=== PATIENT | male | born 1955 | race Hispanic/Latino ===

== ENCOUNTER 2018-11-05 08:18 | Outpatient (CLI) | payer OTHER ==
[2018-11-05 09:15] LABS: Estimated GFR-MDRD - POC Greater than 90
--- NOTE | 2018-11-05 10:49 | CT ---
FCT angiogram of chest with contrast: 10/28/2018 HISTORY: 63-year-old male with "non-rheumatic aortic valve stenosis" cardiac murmur. Recent onset of chest janice n and dyspnea on exertion. TECHNIQUE: IV injection of 90 mL of Isovue-370. Arterial phase scan through the chest. Coronal and sagittal 3-D reconstructions. FINDINGS: There is heavy, severe calcification of the aortic valve. Diameter of thoracic aorta: Aortic root: 3.2 cm Descending aorta: 3.6 cm Aortic arch: 2.4 cm Descending thoracic aorta: 2.5 cm No aortic dissection. No mediastinal lymphadenopathy or hematoma. No pericardial effusion, pleural ef fusion, or pneumothorax. Moderate sized pulmonary scar at base of left lower lobe and lingula. Adjace nt left pleural scars. No suspicious pulmonary mass identified. No acute infiltrate or pulmonary al a. No high-grade stenosis of great vessels arising from aortic arch. IMPRESSION: 1. Heavy calcification of aortic valve. 2. Left lower lobe, lingular, and adjacent left pleural, scarring.
== END 2018-11-05 08:19 | disposition home or self-care (01) ==
LOC: BICCT 08:18
PROVIDERS: ATTEND Thoracic Surgery (Cardiothoracic Vascular Surgery)
DX: I35.0 Nonrheumatic aortic (valve) stenosis (principal); J98.4 Other disorders of lung
CPT/HCPCS: 71275; 82565

== ENCOUNTER 2018-11-12 00:08 | Outpatient (CLI) | payer OTHER ==
--- NOTE | 2018-11-12 21:27 | EKG ---
Test Reason : Blood Pressure : / mmHG Vent. Rate : 063 BPM Atrial Rate : 063 BPM P-R Int : 164 ms QRS Dur : 166 ms QT Int : 492 ms P-R-T Axes : 057 068 234 degrees QTc Int : 503 ms Normal sinus rhythm Left bundle branch block Abnormal ECG When compared with ECG of 21-APR-2013 15:19, Left bundle branch block is now Present Confirmed by ARCELIA SWEET, SGlenis (4) on 11/12/2018 9:26:39 PM Referred By: KORY Confirmed By:DR. Mary PANIAGUA MD
== END 2018-11-12 00:09 | disposition home or self-care (01) ==
LOC: LABBT 00:08
PROVIDERS: ATTEND Thoracic Surgery (Cardiothoracic Vascular Surgery)
DX: Z01.818 Encounter for other preprocedural examination (principal); I35.0 Nonrheumatic aortic (valve) stenosis
CPT/HCPCS: 93005; 93010

== ENCOUNTER 2018-11-12 11:15 | Inpatient (IN) | payer OTHER ==
[2018-11-12 11:47] LABS: Hemoglobin 15.2 g/dL (14.0-18.0); Mean Corpuscular HGB CONC 32.7 g/dL (32.0-36.0); Platelet Count 193 thou/uL (130-400); White Blood Cell (WBC) Count 8.1 thou/uL (4.8-10.8)
[2018-11-12 11:56] LABS: INR-International Normal Ratio 1.1; PTT 29.6 SEC (22.9-36.1); Prothrombin Time 14.4 SEC (12.0-14.7)
[2018-11-12 12:53] LABS: Anion Gap 10 mmol/L (10-20); BUN (Urea Nitrogen) 11 mg/dL (8.4-25.7); Calc. Creatinine Clearance 0 mL/min (70-130); Calcium 9.4 mg/dL (7.8-10.44); Carbon Dioxide 32 mmol/L (23-31); Chloride 101 mmol/L (98-107); Estimated GFR-MDRD Greater than 90; Glucose 89 mg/dL (80-115); Potassium 3.9 mmol/L (3.5-5.1); Sodium 139 mmol/L (136-145)
[2018-11-13] MEDS ORDERED: Dexmedetomidine 200 MCG/2 ML VIAL ONE (06:31)
[2018-11-13] MEDS ORDERED: Fentanyl 100 MCG/2 ML VIAL ONE (06:31)
[2018-11-13] MEDS ORDERED: Midazolam HCl 2 mg/2 ml Vial ONE (06:31)
[2018-11-13] MEDS ORDERED: Vecuronium 10 MG VIAL ONE ×2 (06:31→11:10)
[2018-11-13] MEDS ORDERED: Midazolam HCl 5 mg/5 ml Vial ONE ×2 (06:31→10:21)
[2018-11-13] MEDS ORDERED: Albumin 5% 500 ML ONE ×2 (06:33→13:07)
[2018-11-13] MEDS ORDERED: Dexamethasone 4 mg/ml Vial ONE (06:33)
[2018-11-13] MEDS ORDERED: Bupivacaine HCl 0.5%/Epinephrine 1:200,000/PF 30 ml Vial ONE (06:33)
[2018-11-13] MEDS ORDERED: Heparin 10,000 UNITS/1 ML VIAL 30,000 UNITS in Sodium Chloride 0.9% 1,000 ML FS SCH (07:15)
[2018-11-13] MEDS ORDERED: Iothalamate Meglumine 60% 50 ML VIAL FS ONE (08:07)
[2018-11-13] MEDS ORDERED: PHENYLEPHRINE-NS 100 MCG/ML 10 ML SYRINGE ONE ×3 (08:23→11:10)
[2018-11-13] MEDS ORDERED: Norepinephrine 8 MG/0.9% NS 250 ML ONE (08:25)
[2018-11-13] MEDS ORDERED: Phenylephrine HCL 10 MG/ML VIAL ONE ×2 (08:25→08:28)
[2018-11-13] MEDS ORDERED: Insulin Regular 300 UNITS/3 ML VIAL ONE (09:31)
[2018-11-13] MEDS ORDERED: Fentanyl 250 MCG/5 ML VIAL ONE (10:20)
[2018-11-13] MEDS ORDERED: Sodium Bicarb 50 MEQ/50 ML VIAL ONE (11:10)
[2018-11-13] MEDS ORDERED: Thrombin 5000 UNITS/5 ML VIAL ONE (11:10)
[2018-11-13] MEDS ORDERED: Magnesium 5 GM/10 ML VIAL ONE (11:10)
[2018-11-13] MEDS ORDERED: Calcium Chloride 1 GM/10 ML Abboject SYRINGE ONE (11:10)
[2018-11-13] MEDS ORDERED: Protamine Sulfate 250 MG/25 ML VIAL ONE (11:10)
[2018-11-13] MEDS ORDERED: Mannitol 12.5 GM/50 ML ONE (11:10)
[2018-11-13] MEDS ORDERED: PROPOFOL 200 MG/20 ML VIAL ONE (11:10)
[2018-11-13] MEDS ORDERED: Heparin 5,000 UNITS/ML VIAL ONE (11:10)
[2018-11-13] MEDS ORDERED: Potassium Chloride 60 MEQ/30 ML VIAL ONE (11:10)
[2018-11-13] MEDS ORDERED: Heparin 30,000 units/30 ml VIAL ONE (11:10)
[2018-11-13] MEDS ORDERED: Lidocaine 2% PF 100 mg/5 ml Syringe ONE (11:10)
[2018-11-13] MEDS ORDERED: Aminocaproic Acid 5 GM/20 ML VIAL ONE (11:10)
[2018-11-13] MEDS ORDERED: Nitroglycerin 50 MG/250 ML BOT ONE (11:10)
[2018-11-13 13:06] LABS: Actual Bicarbonate (HCO3a) 23.9 mEq/L (22-28); Base Excess (BEa) -1.8 mEq/L (-2.0 to +3.0); CO2 Tension 44.1 mmHg (35.0-45.0); Carboxyhemoglobin (COHb) 1.4 gm% (0.0-3.0); Hemoglobin (Hb) 15.8 g/dL (14.0-18.0); O2 Tension (PaO2) 68.8 mmHg (> 80.0); Potassium - ABG Lab 3.99 mmol/L (3.70-5.30); pH, Arterial 7.35 (7.35-7.45)
[2018-11-13 13:09] LABS: ALV-art Gradient 303.875 (0-20); Puncture Site ALINE
[2018-11-13] MEDS ORDERED: hydrALAZINE 20 MG/ML VIAL SLOW IVP PRN (13:09)
[2018-11-13] MEDS ORDERED: Nitroglycerin 50 MG/250 ML BOT 250 ML IVPB PRN (13:09)
[2018-11-13] MEDS ORDERED: Fentanyl 100 MCG/2 ML VIAL SLOW IVP PRN (13:09)
[2018-11-13] MEDS ORDERED: Ondansetron PF 4 MG/2 ML Vial IVP PRN (13:09)
[2018-11-13] MEDS ORDERED: niCARdipine HCl 25 MG in Sodium Chloride 0.9% 250 ML 240 ML IVPB PRN (13:09)
[2018-11-13] MEDS ORDERED: Acetaminophen 325 MG TAB PO PRN (13:09)
[2018-11-13] MEDS ORDERED: Bisacodyl 10 MG SUPP PR PRN (13:09)
[2018-11-13] MEDS ORDERED: Norepinephrine 8 MG/0.9% NS 250 ML IVPB PRN (13:09)
[2018-11-13] MEDS ORDERED: Morphine 4 MG/ML VIAL SLOW IVP PRN (13:09)
[2018-11-13] MEDS ORDERED: Promethazine HCl 25 MG/ML VIAL IM PRN (13:09)
[2018-11-13] MEDS ORDERED: Post-Op Insulin Drip Protocol IVPB ONE (13:09)
[2018-11-13] MEDS ORDERED: Mag-Al 1200 mg/1200 mg/30 ML UDCUP PO PRN (13:09)
[2018-11-13] MEDS ORDERED: Bisacodyl 5 MG TAB PO PRN (13:09)
[2018-11-13] MEDS ORDERED: Hetastarch 6% 500 ML 500 ML IVPB PRN (13:09)
[2018-11-13] MEDS ORDERED: Guaifenesin DM 100-10/5 ML UDCUP PO PRN (13:09)
--- NOTE | 2018-11-13 13:12 | RAD ---
SINGLE VIEW OF THE CHEST: COMPARISON: 04/26/2013. HISTORY: Status post CABG. FINDINGS: A single view of the chest shows an enlarged cardiomediastinal silhouette. The patient is status pos t sternotomy. An endotracheal tube is seen with its tip between the clavicles. A left subclavian ce ntral venous catheter is seen with its tip in the superior vena cava. There appear to be bilateral p leural effusions with adjacent atelectasis. No pneumothorax is seen. IMPRESSION: Cardiomegaly and bilateral pleural effusions. POS: TPC
[2018-11-13] MEDS ORDERED: Magnesium 2 GM/50 ML 2 GM in Premix Bag 1 BAG IVPB SCH (13:15)
[2018-11-13 13:20] LABS: #Basophils 0.1 thou/uL (0.0-0.2); #Eosinphils 0.1 thou/uL (0.0-0.7); #Lymphocytes 1.2 thou/uL (1.20-3.40); #Monocytes 1.4 thou/uL (0.11-0.59); #Neutrophils 16.5 thou/uL (1.40-6.50); %Basophils 0.3 % (0.0-1.0); %Eosinophils 0.4 % (0.0-10.0); %Lymphocytes 6.3 % (21.0-51.0); %Monocytes 7.4 % (0.0-10.0); %Neutrophils 85.6 % (42.0-75.0); Hemoglobin 15.2 g/dL (14.0-18.0); Mean Corpuscular HGB CONC 32.9 g/dL (32.0-36.0); Mean Corpuscular Hemoglobin 31.8 pg (27.0-31.0); Mean Corpuscular Volume 96.7 fL (78.0-98.0); Mean Platelet Volume 9.1 fL (7.4-10.4); Platelet Count 148 thou/uL (130-400); RBC Distribution Width 11.9 % (11.5-14.5); Red Blood Cell (RBC) Count 4.77 mill/uL (4.70-6.10); White Blood Cell (WBC) Count 19.3 thou/uL (4.8-10.8)
[2018-11-13] MEDS: D5 1/2 NS w/20 mEq KCL 1,000 ML IV SCH (13:25)
[2018-11-13 13:26] LABS: INR-International Normal Ratio 1.3; Prothrombin Time 16.5 SEC (12.0-14.7)
[2018-11-13] MEDS ORDERED: Dextrose 5% in Water 1,000 ML IV PRN (13:28)
[2018-11-13] MEDS ORDERED: HUMULIN R 100 UNITS in Sodium Chloride 0.9% 100 ML IVPB SCH (13:28)
[2018-11-13] MEDS ORDERED: Dextrose 50% Abboject 50 ML SYRINGE SLOW IVP PRN (13:28)
[2018-11-13] MEDS: CEFAZOLIN 2 GM in Premix Bag 1 BAG IVPB SCH ×2 (13:32→21:10)
[2018-11-13 13:35] LABS: Anion Gap 9 mmol/L (10-20); BUN (Urea Nitrogen) 11 mg/dL (8.4-25.7); Calc. Creatinine Clearance 174 mL/min (70-130); Calcium 8.5 mg/dL (7.8-10.44); Carbon Dioxide 23 mmol/L (23-31); Chloride 112 mmol/L (98-107); Estimated GFR-MDRD Greater than 90; Glucose 144 mg/dL (80-115); Potassium 4.1 mmol/L (3.5-5.1); Sodium 140 mmol/L (136-145)
[2018-11-13] MEDS: Potassium Chloride 20 MEQ/100 ML PREMIX BAG IVPB PRN (13:40)
--- NOTE | 2018-11-13 14:49 | EKG ---
Test Reason : POST CABG Blood Pressure : / mmHG Vent. Rate : 065 BPM Atrial Rate : 065 BPM P-R Int : 172 ms QRS Dur : 158 ms QT Int : 484 ms P-R-T Axes : 049 063 215 degrees QTc Int : 503 ms Normal sinus rhythm Possible Left atrial enlargement Left bundle branch block Abnormal ECG When compared with ECG of 12-NOV-2018 11:31, No significant change was found Confirmed by ARCELIA SWEET, SGlenis (4) on 11/13/2018 2:49:04 PM Referred By: Homa RODRIGUEZ Confirmed By:DR. Mary PANIAGUA MD
[2018-11-13] MEDS: Fentanyl 100 MCG/2 ML VIAL SLOW IVP PRN ×2 (16:56→23:39)
[2018-11-13] MEDS: Ketorolac Tromethamine 30 MG/ML VIAL IVP SCH ×2 (17:39→23:25)
[2018-11-13] MEDS ORDERED: Vancomycin HCl 2 GM in Sodium Chloride 0.9% 250 ML 300 ML IVPB SCH (18:00)
[2018-11-13] MEDS: HYDROcodone/Acetaminophen 5/325 mg Tablet PO PRN ×2 (18:11→20:21)
[2018-11-13 19:37] LABS: Hemoglobin 12.7 g/dL (14.0-18.0)
[2018-11-13 19:51] LABS: Potassium 4.1 mmol/L (3.5-5.1)
[2018-11-13] MEDS: Simvastatin 40 MG TAB PO SCH (20:23)
[2018-11-13] MEDS: Famotidine/PF 20 mg/2ml Vial SLOW IVP SCH (20:23)
--- NOTE | 2018-11-13 21:37 | OP ---
DATE OF PROCEDURE: 11/13/2018 PREOPERATIVE DIAGNOSES: Aortic stenosis/hypertension/dyslipidemia/obesity/diabetes mellitus. POSTOPERATIVE DIAGNOSES: Aortic stenosis/hypertension/dyslipidemia/obesity/diabetes mellitus. PROCEDURE PERFORMED: Aortic valve replacement with a #25 Magna bioprosthetic valve. CO-SURGEON: Dr. Paco Gamez. ANESTHESIA: General endotracheal - Dr. Marguerite Pritchard. PUMP TIME: 53 minutes. CROSS-CLAMP TIME: 46 minutes. LOW CORE TEMPERATURE: 32 degrees Celsius. ASTRONOMY DEPARTMENT CHAIR: Neftali Miranda. DRAINS: 24-Cuban chest tubes x2. DRIPS: Levophed at 0.1 mcg/kilo per minute. TRANSFUSIONS: None. DESCRIPTION OF PROCEDURE: After consent was obtained, the patient was brought to the operating room, placed in the supine position on the operating table. Appropriate central line was placed and general endotracheal anesthesia induced. Chest, abdomen, and legs were prepped and draped in usual sterile fashion. Initial preparation for minimally invasive aortic valve replacement was made. Cutdown on the left femoral artery and vein was performed. Prior to isolation of the vein, I made a right anterolateral second interspace small thoracotomy incision. The chest was entered. On entering the chest and trying to spread the ribs, we realized that the patient's costal cartilages had ossified. His ribs were essentially fixed in place and could not be spread. Around the same time, we began to have blood pressure problems and Levophed was instituted. Due to the difficulty in exposure, the patient's body habitus, and the declining blood pressure, I elected to abort the minimally invasive portion of the procedure. Median sternotomy was performed. Pericardium was entered and pericardial stay sutures were placed. Aortic and atrial cannulation was performed. After adequate heparinization, retrograde prime was performed, and the patient was placed on cardiopulmonary bypass. Aortic cross-clamp was applied and antegrade sanguineous cardioplegic arrest was obtained. 1 L of antegrade cold [place] cardioplegia was given. Topical cold solution was used. Transverse hockey-stick aortotomy was performed. On inspection, the aortic valve was bicuspid and heavily calcified. I could not spread the leaflets apart to even begin to resect either of the leaflets. #11 blade was used to begin the annular incision. This was carried out circumferentially both with Metzenbaum scissors and sharply with 11 blade. The anulus was then decalcified. The annular calcification extended down onto the mitral valve with a large exophytic piece of calcium, which was nearly occlusive in the LVOT. This was completely debrided both off the mitral valve and papillary muscles. Once the valve and anulus were clean, the ventricle was flushed with saline. Pledgeted 2-0 Ethibond sutures were placed. The valve measured as a 25. The 25 Magna Ease valve was washed. Sutures were passed through the sewing ring and the valve seated nicely. Sutures were secured with Cor-Knots. On inspection, the valve was seated with no gaps in the suture line. The leaflets were freely mobile. The aortotomy was closed in a two-layer running fashion pledgeted 4-0 Prolene suture. The de-airing maneuvers were then performed. Carbon dioxide had been infused within the pericardial well throughout the open portion of the procedure. The heart was allowed to fill. The heart was inspected by DAGO and after de-airing was adequate, cross-clamp was removed with the patient in Trendelenburg position. Atrial and ventricular pacing wires were placed, brought through the skin and secured with silk suture. The patient was warmed and weaned from cardiopulmonary bypass. The sump drain was removed and its pursestring suture secured. The antegrade cardioplegia needle was removed and its pursestring suture secured. After resumption of sinus rhythm, good hemodynamics, temperature greater than 36.5, bypass was discontinued. Transfusions were given. Decannulation was performed and the pursestring suture secured. Protamine was administered. 24-Cuban chest tubes x2 were placed in the mediastinum. Vancomycin paste was placed on the sternal edges. After adequate hemostasis has been obtained, with significant difficulty, the sternum was closed with #7 wire. His bone was so hard, I had a difficult time getting the needles to pass through the sternum and each sternal wire was used once. The sternum was then treated with platelet rich plasma and wires were twisted. The peristernal block was performed with 0.5% Marcaine with 4 mg of Decadron. The wounds were irrigated and treated with platelet poor plasma and closed in multiple layers. Needle, sponge, and instrument counts were all reported as correct at the end of the procedure. The patient was transferred to the intensive care unit in stable, but critical condition. Job ID: [id number]
[2018-11-14] MEDS: HYDROcodone/Acetaminophen 5/325 mg Tablet PO PRN ×5 (02:43→20:20)
[2018-11-14 05:00] LABS: Anion Gap 6 mmol/L (10-20); BUN (Urea Nitrogen) 14 mg/dL (8.4-25.7); Calc. Creatinine Clearance 176 mL/min (70-130); Calcium 7.8 mg/dL (7.8-10.44); Carbon Dioxide 28 mmol/L (23-31); Chloride 107 mmol/L (98-107); Estimated GFR-MDRD Greater than 90; Glucose 114 mg/dL (80-115); Sodium 137 mmol/L (136-145)
[2018-11-14 05:04] LABS: #Lymphocytes 0.7 thou/uL (1.20-3.40); #Monocytes 1.1 thou/uL (0.11-0.59); %Basophils 0.1 % (0.0-1.0); %Eosinophils 0.1 % (0.0-10.0); %Lymphocytes 5.5 % (21.0-51.0); %Neutrophils 85.2 % (42.0-75.0); Band 17 % (5-11); Elliptocytes SLIGHT = 2-5 cells (100X) (0-1/hpf); Lymphocytes 7 % (21-51); MDiff Complete? YES; Mean Corpuscular HGB CONC 32.5 g/dL (32.0-36.0); Mean Corpuscular Hemoglobin 31.4 pg (27.0-31.0); Mean Corpuscular Volume 96.4 fL (78.0-98.0); Mean Platelet Volume 9.3 fL (7.4-10.4); Monocytes 4 % (0-10); Neutrophil 72 % (42-75); Platelet Count 115 thou/uL (130-400); Platelet Morphology Comment Appears Decreased; RBC Distribution Width 11.9 % (11.5-14.5); Red Blood Cell (RBC) Count 3.83 mill/uL (4.70-6.10); White Blood Cell (WBC) Count 11.7 thou/uL (4.8-10.8)
[2018-11-14] MEDS: Ketorolac Tromethamine 30 MG/ML VIAL IVP SCH ×4 (05:24→23:07)
[2018-11-14] MEDS: CEFAZOLIN 2 GM in Premix Bag 1 BAG IVPB SCH (05:24)
[2018-11-14] MEDS: Potassium Chloride 20 MEQ/100 ML PREMIX BAG IVPB PRN (07:33)
--- NOTE | 2018-11-14 08:17 | RAD ---
FRadiograph chest one view: 11/14/2018 4:14 AM HISTORY: 63-year-old male status post open heart surgery COMPARISON: 11/13/2018 12:46 PM FINDINGS: Endotracheal tube has been removed. Left-sided Central line remains. Cardiomegaly remains. Patchy, st reaky pulmonary densities in the left mid and lower lung zones remain. Right lung is relatively clear . There has been interval improvement in aeration of the right lung base perhaps representing decreas e in right pleural effusion. IMPRESSION: 1.) Status post extubation. 2) improvement in aeration of the right lung base, perhaps representing decrease in right pleural eff usion
[2018-11-14] MEDS: Magnesium 2 GM/50 ML 2 GM in Premix Bag 1 BAG IVPB SCH (09:10)
[2018-11-14] MEDS: Famotidine/PF 20 mg/2ml Vial SLOW IVP SCH ×2 (09:11→20:28)
[2018-11-14] MEDS: Aspirin 325 MG TAB PO SCH (09:11)
[2018-11-14] MEDS: Fentanyl 100 MCG/2 ML VIAL SLOW IVP PRN ×4 (09:58→23:01)
[2018-11-14] MEDS: D5 1/2 NS w/20 mEq KCL 1,000 ML IV SCH (16:19)
[2018-11-14] MEDS: Insulin Regular 300 UNITS/3 ML VIAL SC PRN ×3 (17:18→23:44)
[2018-11-14] MEDS: Simvastatin 40 MG TAB PO SCH (20:20)
[2018-11-15] MEDS: HYDROcodone/Acetaminophen 5/325 mg Tablet PO PRN ×6 (01:27→23:22)
[2018-11-15 05:20] LABS: #Eosinphils 0.2 thou/uL (0.0-0.7); #Lymphocytes 1.2 thou/uL (1.20-3.40); #Monocytes 1.2 thou/uL (0.11-0.59); #Neutrophils 8.5 thou/uL (1.40-6.50); %Basophils 0.1 % (0.0-1.0); %Eosinophils 2.2 % (0.0-10.0); %Lymphocytes 10.3 % (21.0-51.0); %Monocytes 11.1 % (0.0-10.0); %Neutrophils 76.2 % (42.0-75.0); Hemoglobin 11.8 g/dL (14.0-18.0); Mean Corpuscular HGB CONC 32.8 g/dL (32.0-36.0); Mean Corpuscular Hemoglobin 32.3 pg (27.0-31.0); Mean Corpuscular Volume 98.6 fL (78.0-98.0); Mean Platelet Volume 9.2 fL (7.4-10.4); Platelet Count 101 thou/uL (130-400); RBC Distribution Width 11.8 % (11.5-14.5); Red Blood Cell (RBC) Count 3.64 mill/uL (4.70-6.10); White Blood Cell (WBC) Count 11.1 thou/uL (4.8-10.8)
[2018-11-15] MEDS: Ketorolac Tromethamine 30 MG/ML VIAL IVP SCH (05:27)
[2018-11-15 05:50] LABS: Anion Gap 7 mmol/L (10-20); BUN (Urea Nitrogen) 14 mg/dL (8.4-25.7); Calc. Creatinine Clearance 183 mL/min (70-130); Calcium 7.8 mg/dL (7.8-10.44); Carbon Dioxide 28 mmol/L (23-31); Chloride 105 mmol/L (98-107); Estimated GFR-MDRD Greater than 90; Glucose 102 mg/dL (80-115); Sodium 136 mmol/L (136-145)
[2018-11-15] MEDS: Famotidine/PF 20 mg/2ml Vial SLOW IVP SCH (08:05)
[2018-11-15] MEDS: Aspirin 325 MG TAB PO SCH (08:05)
[2018-11-15] MEDS: Magnesium 2 GM/50 ML 2 GM in Premix Bag 1 BAG IVPB SCH (08:05)
--- NOTE | 2018-11-15 08:40 | RAD ---
FRadiograph chest one view: 11/15/2018 at 4:53 AM HISTORY: 63-year-old male in respiratory distress status post open heart surgery COMPARISON: 11/14/2018 at 4:14 AM FINDINGS: There has been no interval change. IMPRESSION: 1. Cardiomegaly. 2. Nonspecific mild pulmonary densities in the left lung. 3. Sternotomy wires. 4. No interval change.
[2018-11-15] MEDS: Potassium Chloride 20 MEQ/100 ML PREMIX BAG IVPB PRN (10:03)
[2018-11-15] MEDS ORDERED: Ondansetron PF 4 MG/2 ML Vial IVP PRN (11:19)
[2018-11-15] MEDS ORDERED: Nitroglycerin 0.4 MG TAB (25 Tab Bottle) SL PRN (11:19)
[2018-11-15] MEDS ORDERED: Mineral Oil ENEMA PR PRN (11:19)
[2018-11-15] MEDS ORDERED: Acetaminophen 325 MG TAB PO PRN (11:19)
[2018-11-15] MEDS ORDERED: Mag-Al 1200 mg/1200 mg/30 ML UDCUP PO PRN (11:19)
[2018-11-15] MEDS ORDERED: Bisacodyl 10 MG SUPP PR PRN (11:19)
[2018-11-15] MEDS ORDERED: Bisacodyl 5 MG TAB PO PRN (11:19)
--- NOTE | 2018-11-15 12:08 | CON ---
DATE OF CONSULTATION: 11/14/2018 REASON FOR CONSULTATION: Assess for pacemaker after recent AVR. HISTORY OF PRESENT ILLNESS: Mr. Pedraza is a very pleasant 63-year-old gentleman, whom I have seen and evaluated in the past. He recently had a history of severe aortic stenosis. He underwent successful TAVR. He currently has external pacing. Just after surgery, he continued to have intermittent issues with pacing requirements. During my visit, he appeared to be stable without the need for pacing. No current complaints of chest pain, pressure, or associated symptoms. HOME MEDICATIONS: Include nitroglycerin, fluoxetine, metformin, losartan, Coreg, tramadol, minocycline, carvedilol. PAST MEDICAL HISTORY: Aortic stenosis status post AVR, diabetes mellitus, hypertension, bladder cancer. PAST SURGICAL HISTORY: As above including umbilical hernia repair, bladder surgery. SOCIAL HISTORY: No current tobacco or alcohol use. ALLERGIES: NONE. RECENT HOSPITALIZATIONS: None. REVIEW OF SYMPTOMS: A 10-point review of systems is reviewed and as above, otherwise negative. PHYSICAL EXAMINATION: GENERAL: Patient is a pleasant gentleman, who is in no acute distress. The patient appears their stated age. VITAL SIGNS: Blood pressure 139/70, pulse 79. Temperature, afebrile. NEUROLOGIC: The patient is alert and oriented x3 with no focal neurologic deficits. HEENT: Sclerae without icterus. Mouth has moist mucous membranes with normal pallor. NECK: No JVD. Carotid upstroke brisk. No bruits bilaterally. LUNGS: Clear to auscultation with unlabored respirations. BACK: No scoliosis or kyphosis. CARDIAC: Regular rate and rhythm with normal S1 and S2. No S3 or S4 noted. No significant rubs, murmurs, thrills, or gallops noted throughout the precordium. PMI is not displaced. There is no parasternal heave. ABDOMEN: Soft, nontender, nondistended. No peritoneal signs present. No hepatosplenomegaly. No abnormal striae. EXTREMITIES: 2+ femoral and 2+ dorsalis pedis pulses. No cyanosis, clubbing, or edema. SKIN: No gross abnormalities. PERTINENT LABORATORY DATA: Hemoglobin 11.8 and creatinine 0.77. IMPRESSION: 1. The patient requirements status post aortic valve replacement. 2. Diabetes mellitus. 3. Hypertension. RECOMMENDATIONS: From a CV standpoint, Mr. Pedraza from my visit appeared stable. We will continue to keep the epicardial leads in place over the next 24 to 48 hours for further assessment. Otherwise, continue current medical therapy as prescribed. Job ID: [id number]
--- NOTE | 2018-11-15 13:11 | PDOC.CTH ---
Cardiology Progress Note - Subjective Doing well. Pacer leads removed. No complaints - Objective Vital Signs Temp Pulse Resp Pulse Ox 11/15/18 12:00 98.3 F 11/15/18 08:00 95 11/15/18 07:00 98.0 F 11/15/18 06:52 100 11/15/18 06:51 77 16 100 11/15/18 04:00 97 F L Weight 287 lb 4.197 oz 11/14/18 11/15/18 11/16/18 06:59 06:59 06:59 Intake Total 4305.6 2542 940 Output Total 1005 2450 555 Balance 3300.6 92 385 - Physical Examination General/Neuro: alert & oriented x3, NAD Neck: carotid US brisk, no JVD present Lungs: CTA, unlabored respirations Heart: PMI normal, RRR Abdomen: NT/ND, soft Extremities: + femoral B - Labs Result Diagrams: 11/15/18 05:05 11/15/18 05:05 - Assessment/Plan s/p AVR DM doing well HR appears stable after dc of pacer leads Statin Avoid BB for now
[2018-11-15] MEDS: Fentanyl 100 MCG/2 ML VIAL SLOW IVP PRN (16:53)
[2018-11-15] MEDS: Atorvastatin Calcium 20 MG TAB PO SCH (20:13)
[2018-11-15] MEDS: Famotidine 20 MG TAB PO SCH (20:13)
[2018-11-15] MEDS: Guaifenesin DM 100-10/5 ML UDCUP PO PRN (22:28)
[2018-11-16] MEDS: Fentanyl 100 MCG/2 ML VIAL SLOW IVP PRN (02:31)
[2018-11-16] MEDS: HYDROcodone/Acetaminophen 5/325 mg Tablet PO PRN ×4 (05:07→19:43)
[2018-11-16] MEDS: Furosemide 40 MG TAB PO SCH (07:57)
[2018-11-16] MEDS: Potassium Chloride 10 MEQ TAB PO SCH (07:57)
[2018-11-16] MEDS: Famotidine 20 MG TAB PO SCH ×2 (07:57→20:43)
[2018-11-16] MEDS: Aspirin 325 mg Enteric Coated Tablet PO SCH (07:57)
[2018-11-16] MEDS: Polyethylene Glycol 3350 17 GM Packet PO SCH (07:58)
[2018-11-16 08:17] LABS: Actual Bicarbonate (HCO3a) 22.8 mEq/L (22-28); Analyzer IN Cardio OR; Base Excess (BEa) -4.2 mEq/L (-2.0 to +3.0); CO2 Tension 49.6 mmHg (35.0-45.0); Calcium, Ionized 1.13 mmol/L (1.12-1.30); Carboxyhemoglobin (COHb) 0.6 gm% (0.0-3.0); Hemoglobin (Hb) 13.1 g/dL (14.0-18.0); O2 Tension (PaO2) 386.2 mmHg (> 80.0); Potassium - ABG Lab 4.82 mmol/L (3.70-5.30); pH, Arterial 7.28 (7.35-7.45)
[2018-11-16 08:17] LABS: Actual Bicarbonate (HCO3a) 21.5 mEq/L (22-28); Analyzer IN Cardio OR; Base Excess (BEa) -5.6 mEq/L (-2.0 to +3.0); CO2 Tension 47.6 mmHg (35.0-45.0); Calcium, Ionized 1.23 mmol/L (1.12-1.30); Carboxyhemoglobin (COHb) 0.8 gm% (0.0-3.0); O2 Tension (PaO2) 158.9 mmHg (> 80.0); Potassium - ABG Lab 4.11 mmol/L (3.70-5.30); pH, Arterial 7.27 (7.35-7.45)
[2018-11-16 08:17] LABS: Analyzer IN Cardio OR; Base Excess (BEa) -4.4 mEq/L (-2.0 to +3.0); CO2 Tension 56.8 mmHg (35.0-45.0); Calcium, Ionized 1.54 mmol/L (1.12-1.30); Carboxyhemoglobin (COHb) 1.1 gm% (0.0-3.0); Hemoglobin (Hb) 16.9 g/dL (14.0-18.0); O2 Tension (PaO2) 68.9 mmHg (> 80.0); Potassium - ABG Lab 4.41 mmol/L (3.70-5.30)
[2018-11-16 08:17] LABS: Actual Bicarbonate (HCO3a) 21.3 mEq/L (22-28); Analyzer IN Cardio OR; Base Excess (BEa) -6.1 mEq/L (-2.0 to +3.0); CO2 Tension 48.4 mmHg (35.0-45.0); Calcium, Ionized 1.29 mmol/L (1.12-1.30); Hemoglobin (Hb) 16.7 g/dL (14.0-18.0); O2 Tension (PaO2) 66.5 mmHg (> 80.0); Potassium - ABG Lab 4.01 mmol/L (3.70-5.30); pH, Arterial 7.26 (7.35-7.45)
[2018-11-16 08:18] LABS: Actual Bicarbonate (HCO3a) 26.1 mEq/L (22-28); Actual Bicarbonate (HCO3a) 26.8 mEq/L (22-28); Analyzer IN Cardio OR; Base Excess (BEa) -3.1 mEq/L (-2.0 to +3.0); Base Excess (BEa) -5.1 mEq/L (-2.0 to +3.0); Calcium, Ionized 1.11 mmol/L (1.12-1.30); Carboxyhemoglobin (COHb) 0.4 gm% (0.0-3.0); Carboxyhemoglobin (COHb) 0.5 gm% (0.0-3.0); Hemoglobin (Hb) 13.1 g/dL (14.0-18.0); Hemoglobin (Hb) 13.6 g/dL (14.0-18.0); O2 Tension (PaO2) 276.3 mmHg (> 80.0); O2 Tension (PaO2) 397.5 mmHg (> 80.0); Potassium - ABG Lab 4.34 mmol/L (3.70-5.30); Potassium - ABG Lab 5.01 mmol/L (3.70-5.30)
[2018-11-16 08:18] LABS: Actual Bicarbonate (HCO3v) 24 mEq/L (22-28); Analyzer IN Cardio OR; Base Excess -4.3 mEq/L (-2.0 to +3.0); Calcium, Ionized 1.09 mmol/L (1.16-1.32); Chloride (ABG LAB) 105 mmol/L (98-106); Hemoglobin (Hb) 13.1 g/dL (13.1-17.2); Potassium - ABG Lab 4.69 mmol/L (3.70-5.30); Sodium 135.3 mmol/L (133-146); pH (venous) 7.25 (7.32-7.43)
[2018-11-16 08:19] LABS: Actual Bicarbonate (HCO3a) 24.5 mEq/L (22-28); Analyzer IN Cardio OR; Base Excess (BEa) -3.2 mEq/L (-2.0 to +3.0); Carboxyhemoglobin (COHb) 0.9 gm% (0.0-3.0); Hemoglobin (Hb) 13.9 g/dL (14.0-18.0); Potassium - ABG Lab 3.93 mmol/L (3.70-5.30); pH, Arterial 7.27 (7.35-7.45)
[2018-11-16 08:19] LABS: Actual Bicarbonate (HCO3a) 24.6 mEq/L (22-28); Analyzer IN Cardio OR; Base Excess (BEa) -1.7 mEq/L (-2.0 to +3.0); CO2 Tension 47.4 mmHg (35.0-45.0); Calcium, Ionized 1.15 mmol/L (1.12-1.30); Carboxyhemoglobin (COHb) 0.8 gm% (0.0-3.0); Hemoglobin (Hb) 14.8 g/dL (14.0-18.0); O2 Tension (PaO2) 212.7 mmHg (> 80.0); Potassium - ABG Lab 3.89 mmol/L (3.70-5.30); pH, Arterial 7.33 (7.35-7.45)
[2018-11-16 08:22] LABS: Puncture Site ALINE; pH, Arterial 7.24 (7.35-7.45)
[2018-11-16 08:23] LABS: Puncture Site ALINE
[2018-11-16 08:24] LABS: Puncture Site ALINE
[2018-11-16 08:24] LABS: Puncture Site ALINE
[2018-11-16 08:29] LABS: CO2 Tension 72.3 mmHg (35.0-45.0); Puncture Site ALINE; pH, Arterial 7.19 (7.35-7.45)
[2018-11-16 08:31] LABS: Puncture Site ALINE; pH, Arterial 7.12 (7.35-7.45)
[2018-11-16 08:32] LABS: Puncture Site ALINE
[2018-11-16 08:33] LABS: Puncture Site ALINE
[2018-11-16] MEDS: Guaifenesin DM 100-10/5 ML UDCUP PO PRN ×3 (09:52→19:44)
--- NOTE | 2018-11-16 15:10 | PDOC.CTH ---
Cardiology Progress Note - Subjective Doing very well - Objective Vital Signs Temp Pulse Pulse Pulse Resp BP BP 11/16/18 13:25 83 19 11/16/18 11:38 98.9 F 11/16/18 09:31 91 88 152/76 H 138/74 11/16/18 07:35 11/16/18 07:17 98.7 F 82 16 11/16/18 07:07 82 20 11/16/18 04:00 98.4 F 84 17 BP Pulse Ox Pulse Ox Pulse Ox 11/16/18 13:25 99 11/16/18 11:38 11/16/18 09:31 94 L 98 11/16/18 07:35 95 11/16/18 07:17 114/79 100 11/16/18 07:07 97 11/16/18 04:00 141/83 H 95 Weight 285 lb 15.033 oz 11/15/18 11/16/18 11/17/18 06:59 06:59 06:59 Intake Total 2542 2880 640 Output Total 2450 3530 1300 Balance 92 -650 -660 - Physical Examination General/Neuro: alert & oriented x3, NAD Neck: carotid US brisk, no JVD present Lungs: CTA, unlabored respirations Heart: PMI normal, RRR Abdomen: NT/ND, soft Extremities: + femoral B - Telemetry Telemetry Rhythm: SR - Labs Result Diagrams: 11/15/18 05:05 11/15/18 05:05 - Assessment/Plan s/p AVR Doing well Secondary RF modification IP and ambulation No indication for PM
[2018-11-16] MEDS: Atorvastatin Calcium 20 MG TAB PO SCH (20:43)
[2018-11-17] MEDS: HYDROcodone/Acetaminophen 5/325 mg Tablet PO PRN ×4 (00:09→20:52)
[2018-11-17 05:36] VITALS: BMI 41.1
[2018-11-17] MEDS: Aspirin 325 mg Enteric Coated Tablet PO SCH (08:04)
[2018-11-17] MEDS: Famotidine 20 MG TAB PO SCH ×2 (08:04→20:52)
[2018-11-17] MEDS: Furosemide 40 MG TAB PO SCH (08:04)
[2018-11-17] MEDS: Potassium Chloride 10 MEQ TAB PO SCH (08:04)
[2018-11-17] MEDS: Polyethylene Glycol 3350 17 GM Packet PO SCH (08:04)
[2018-11-17] MEDS: Fentanyl 100 MCG/2 ML VIAL SLOW IVP PRN (15:54)
[2018-11-17] MEDS: Atorvastatin Calcium 20 MG TAB PO SCH (20:52)
[2018-11-18] MEDS: Fentanyl 100 MCG/2 ML VIAL SLOW IVP PRN (07:59)
[2018-11-18] MEDS: HYDROcodone/Acetaminophen 5/325 mg Tablet PO PRN (08:05)
[2018-11-18] MEDS: Aspirin 325 mg Enteric Coated Tablet PO SCH (08:05)
[2018-11-18] MEDS: Furosemide 40 MG TAB PO SCH (08:05)
[2018-11-18] MEDS: Potassium Chloride 10 MEQ TAB PO SCH (08:06)
[2018-11-18] MEDS: Famotidine 20 MG TAB PO SCH (08:06)
[2018-11-18] MEDS: Polyethylene Glycol 3350 17 GM Packet PO SCH (08:06)
[2018-11-18 08:56] VITALS: BP 132/62; TEMP 99
--- NOTE | 2018-11-18 11:28 | DIS ---
DATE OF ADMISSION: 11/13/2018 DATE OF DISCHARGE: 11/18/2018 DIAGNOSIS: Aortic stenosis. PROCEDURE: Aortic valve replacement with a #25 Magna bioprosthetic valve. DESCRIPTION OF HOSPITAL STAY: Mr. Pedraza was brought in for an elective valve replacement. He has done well postoperatively. He is being discharged to home in good condition. He will follow up with me in [address] You in a month. DISCHARGE MEDICATIONS: 1. Metformin 500 mg daily. 2. Aspirin 325 mg daily. 3. Lipitor 20 mg at bedtime. 4. Lasix 40 mg daily for 10 days. 5. Potassium 10 mEq daily for 10 days. Job ID: [id number]
--- NOTE | 2018-11-18 17:05 | PDOC.CTH ---
Cardiology Progress Note - Subjective Doing well. No complaints - Objective Vital Signs Temp Pulse Resp BP Pulse Ox 11/18/18 08:56 99.0 F 84 20 132/62 100 11/18/18 07:10 89 14 95 Weight 279 lb 8 oz 11/17/18 11/18/18 11/19/18 06:59 06:59 06:59 Intake Total 1710 840 Output Total 2350 2600 820 Balance -640 -1760 -820 - Physical Examination General/Neuro: alert & oriented x3, NAD Neck: carotid US brisk, no JVD present Lungs: CTA, unlabored respirations Heart: PMI normal, RRR Abdomen: NT/ND, soft Extremities: + femoral B - Labs Result Diagrams: 11/15/18 05:05 11/15/18 05:05 - Assessment/Plan s/p AVR HTN CV status stable Ok for dc from CV standpoint
== END 2018-11-18 12:17 | disposition home or self-care (01) | DRG 220 ==
LOC: EDSTATUS 11:15 → SURG A 11-13 05:48 → CCU 11-13 12:49 → 2NO 11-17 14:04
PROVIDERS: ADMIT Thoracic Surgery (Cardiothoracic Vascular Surgery); ATTEND Thoracic Surgery (Cardiothoracic Vascular Surgery)
PROC: 02RF0KZ Replacement of Aortic Valve with Nonautologous Tissue Substitute, Open Approach (ICD-10-PCS; principal; 2018-11-13)
PROC: 02HV33Z Insertion of Infusion Device into Superior Vena Cava, Percutaneous Approach (ICD-10-PCS; 2018-11-13)
PROC: 3E043XZ Introduction of Vasopressor into Central Vein, Percutaneous Approach (ICD-10-PCS; 2018-11-13)
DX: I35.0 Nonrheumatic aortic (valve) stenosis (principal); Z68.41 Body mass index [BMI] 40.0-44.9, adult; I10 Essential (primary) hypertension; E66.9 Obesity, unspecified; E11.9 Type 2 diabetes mellitus without complications; E78.2 Mixed hyperlipidemia; M94.8X8 Other specified disorders of cartilage, other site; M51.26 Other intervertebral disc displacement, lumbar region; Z79.899 Other long term (current) drug therapy; Z79.84 Long term (current) use of oral hypoglycemic drugs; Z85.51 Personal history of malignant neoplasm of bladder; Z98.890 Other specified postprocedural states
CPT/HCPCS: 36415; 36416; 36430; 71045; 80048; 82805; 82947; 85025; 85027; 85610; 85730; 86850; 86900; 86901; 93005; 93010; 93798; 94002; 94640; J0670; J1100; J1642; J1644; J1815; J1885; J2001; J2150; J2250; J2270; J2370; J2405; J2704; J2720; J3010; J3370; J3475; J3480; J7050; J7620; P9045; Q9961; S0017; S0028

== ENCOUNTER 2018-11-26 15:39 | Inpatient (IN) | payer OTHER ==
[2018-11-26 16:28] LABS: #Basophils 0.1 thou/uL (0.0-0.2); #Eosinphils 1.1 thou/uL (0.0-0.7); #Lymphocytes 1.7 thou/uL (1.20-3.40); #Monocytes 1.4 thou/uL (0.11-0.59); #Neutrophils 7.2 thou/uL (1.40-6.50); %Basophils 0.5 % (0.0-1.0); %Eosinophils 9.8 % (0.0-10.0); %Lymphocytes 14.7 % (21.0-51.0); %Monocytes 11.9 % (0.0-10.0); Hemoglobin 12.5 g/dL (14.0-18.0); Mean Corpuscular HGB CONC 33.2 g/dL (32.0-36.0); Mean Corpuscular Hemoglobin 31.3 pg (27.0-31.0); Mean Corpuscular Volume 94.2 fL (78.0-98.0); Mean Platelet Volume 8.3 fL (7.4-10.4); Platelet Count 313 thou/uL (130-400); RBC Distribution Width 12.1 % (11.5-14.5); White Blood Cell (WBC) Count 11.5 thou/uL (4.8-10.8)
--- NOTE | 2018-11-26 16:31 | RAD ---
Chest one view HISTORY: Chest pain. COMPARISON: 11/15/2018. FINDINGS: Cardiac silhouette is magnified, enlarged, and partially obscured by patchy bibasilar infil trates that are similar in appearance to prior study. Pulmonary vasculature is upper limits of normal. Mediastinum midline with postoperative changes. Blunting of the costophrenic angles is slight ly more prominent. No evidence of pneumothorax. IMPRESSION: Small amount of bilateral pleural fluid is now evident. Pulmonary vascular congestion and other findings are otherwise stable.
[2018-11-26 16:52] LABS: ALT (SGPT) 23 U/L (8-55); AST (SGOT) 24 U/L (5-34); Albumin 3.6 g/dL (3.4-4.8); Alkaline Phosphatase 90 U/L (40-150); Anion Gap 12 mmol/L (10-20); BUN (Urea Nitrogen) 10 mg/dL (8.4-25.7); Bilirubin, Total 0.5 mg/dL (0.2-1.2); Calc. Creatinine Clearance 0 mL/min (70-130); Calcium 9.1 mg/dL (7.8-10.44); Carbon Dioxide 25 mmol/L (23-31); Chloride 106 mmol/L (98-107); Estimated GFR-MDRD 90; Globulin 2.8 g/dL (2.4-3.5); Glucose 97 mg/dL (80-115); Protein, Total 6.4 g/dL (5.8-8.1); Sodium 139 mmol/L (136-145)
[2018-11-26 17:12] LABS: CKMB 2.8 ng/mL (0-6.6)
[2018-11-26] MEDS ORDERED: HYDROcodone/Acetaminophen 5/325 mg Tablet PO PRN ×2 (19:39)
[2018-11-26 19:46] VITALS: BMI 38.7
--- NOTE | 2018-11-27 02:00 | HP ---
PRIMARY CARE PHYSICIAN: Renu Crane MD. CHIEF COMPLAINT: Dizziness, fatigue, and bradycardia. HISTORY OF PRESENT ILLNESS: Mr. Pedraza is a pleasant 63-year-old male with past medical history of diabetes mellitus, hypertension, hyperlipidemia, and recent aortic valve replacement on 11/13/2018, who has presented to [facility] earlier today after he was advised by Dr. You that he is suffering from a heart block that is causing symptomatic bradycardia. He had noticed over the last week that he has had worsening shortness of breath with some mild palpitations. He states that when he is active enough in walking around, he feels weak and tired, he states as he sits in the chair and he checks his vital signs, he has noticed that his pulse dropped down in the 30s and 40s. He was seen at cardiac rehab yesterday and it was also noted that the patient was bradycardic, an EKG was obtained and sent to Dr. You's office who then had recommended the patient be seen in the emergency department for his bradycardia. Upon arriving in the emergency department, he was found with a rate in the 40s and 50s, and EKG was obtained and showed possible Mobitz type 2 block with heart rates in the 50s. The patient had denied any fever, chills, any headache, blurred vision, or dizziness at that time. He had denied any chest pain, palpitations, or shortness of breath. He denied any abdominal pain, nausea, or vomiting. He states that his chest wall is sore from a recent aortic valve replacement about [address] You was notified for his symptoms in the ER, who had planned for pacemaker placement on 11/27/2018. The patient's lab work did show a troponin was indeterminate at 0.066. WBC was slightly elevated at 11.5, however, he had denied any symptoms of an infectious like process at this time. It was determined the patient be admitted under observation, place on tele and Cardiology Services will be consulted for further evaluation for possible pacemaker placement on 11/27/2018. REVIEW OF SYSTEMS: All other systems reviewed and found to be negative unless mentioned in the HPI. PAST MEDICAL HISTORY: Significant for diabetes mellitus type 1, hyperlipidemia, hypertension. PAST SURGICAL HISTORY: Aortic valve replacement on 11/13/2018, bladder cancer surgery in 2013, and surgery for hernia repair. PSYCHIATRIC HISTORY: Significant for anxiety. SOCIAL HISTORY: The patient reports drinking socially about 3-4 times a week, however, denies any tobacco or illicit drug use. KNOWN ALLERGIES: None. CURRENT HOME MEDICATIONS: 1. Aspirin 325 mg oral daily. 2. Metformin 500 mg oral daily. 3. Hydrocodone acetaminophen 5/325 mg oral as needed for pain. 4. Furosemide 40 mg oral once daily. 5. Fluoxetine 10 mg oral once daily. 6. Potassium chloride 10 mEq oral once daily. 7. Atorvastatin 20 mg oral once daily. PHYSICAL EXAMINATION: VITAL SIGNS: BP 127/74, pulse 66, respirations 21, O2 saturations 94% on room air, temperature 98.7 degrees Fahrenheit. GENERAL: The patient is awake, alert, and oriented x4. He is sitting up in chair comfortably with no acute distress. HEENT: Atraumatic, normocephalic. Pupils are round and reactive to light. Extraocular muscles intact. Moist mucous membranes noted. NECK: Soft, supple. No JVD. Trachea midline. CARDIOVASCULAR: Positive S1 and S2. The patient was bradycardic on the monitor on arrival, however, he is currently stable in the 70s. Normal sinus rhythm. No murmur auscultated. The patient is with healing wounds of chest wall with mild tenderness to palpation. RESPIRATORY: Clear to auscultation bilaterally. No wheezes, rales, or rhonchi. ABDOMEN: Soft, nontender. Bowel sounds present. MUSCULOSKELETAL: Strength 5+ bilaterally upper and lower extremities. Moves all extremities equal. Trace edema noted in lower extremities, left worse than right. NEUROLOGIC: Cranial nerves 2 through 12 grossly intact. No focal deficits noted. Speech intact and normal. Gait normal. SKIN: Warm, dry, and intact. As above, healing incisions of chest wall. PSYCHIATRIC: Good mood and affect. LABORATORY DATA: WBC 11.5, RBC 4.00, hemoglobin 12.5, platelet 313. Sodium 139, potassium 4.0, anion gap 12, BUN 10, creatinine 0.86, estimated GFR 90, glucose 97. CK-MB 2.8, troponin 0.066. DIAGNOSTIC IMAGING: Portable chest x-ray indicated small amount of bilateral pleural fluid is now evident. Pulmonary vascular congestion and other findings are otherwise stable. ASSESSMENT AND PLAN: 1. Symptomatic bradycardia. The patient will be monitored on tele overnight. Cardiology Services are consulted and planned for possible pacemaker placement tomorrow. 2. Heart block, possible Mobitz type 2. As above, Cardiology Services will be consulted for further evaluation, possible plan for pacemaker placement tomorrow. 3. History of recent aortic valve replacement. The patient is currently stable at this time. He will be continued on his home medications, however, aspirin and other anticoagulation will be held due to plan for possible pacemaker placement in the morning. The patient will also be made n.p.o. at midnight. 4. History of hypertension, currently stable at this time. Continue on home regimen. 5. Hyperlipidemia. Continue home regimen. 6. Diabetes mellitus. The patient will be placed on insulin sliding scale during hospital course with frequent Accu-Cheks. 7. History of anxiety. Continue on the patient's home fluoxetine. 8. Code status, full code. DVT and gastrointestinal prophylaxis. DISPOSITION: Pending further workup and clinical findings. The patient will likely be discharged home once he is stable from a cardiology standpoint in the next 1-2 days. Job ID: [id number]
[2018-11-27] MEDS: HYDROcodone/Acetaminophen 5/325 mg Tablet PO PRN ×4 (04:07→21:06)
[2018-11-27] MEDS: Potassium Chloride 10 MEQ TAB PO SCH (08:31)
[2018-11-27] MEDS: FLUoxetine HCl 10 MG CAP PO SCH (08:31)
[2018-11-27] MEDS: Furosemide 40 MG TAB PO SCH (08:31)
[2018-11-27] MEDS ORDERED: HumaLOG 300 UNITS/3 ML VIAL SC PRN ×2 (09:36)
[2018-11-27] MEDS ORDERED: Dextrose 5% in Water 1,000 ML IV PRN (09:36)
[2018-11-27] MEDS ORDERED: Dextrose 50% Abboject 50 ML SYRINGE SLOW IVP PRN (09:36)
--- NOTE | 2018-11-27 10:15 | PRG ---
DATE OF SERVICE: 11/27/2018 HISTORY OF PRESENT ILLNESS: This is a 63-year-old male with recent aortic valve replacement, hypertension, hyperlipidemia, diabetes, and obesity with BMI 38, who was sent by his primary care physicians office for bradycardia and the patient reporting fatigue. He was admitted for symptomatic bradycardia for evaluation of possible pacemaker placement. Subjective: The patient was seen and evaluated at bedside. His is present. He has no acute complaints. Per nurse, heart rate is in the normal range without symptoms. No other acute events overnight. REVIEW OF SYSTEMS: All systems are reviewed and negative except for the ones mentioned above. PHYSICAL EXAMINATION: VITAL SIGNS: Blood pressure 137/72, pulse is 76, respirations 20, oxygen saturation 93% on room air, and temperature 98.4 Fahrenheit. GENERAL: The patient is in no acute distress. He is awake, alert, and oriented x3. HEAD AND NECK: Pupils are equally reactive to light. Extraocular muscles are intact. Mucous membranes are moist. Neck is supple. CARDIOVASCULAR: Rhythm and rate are regular. No audible murmurs, rubs, or gallops. PULMONARY: Clear to auscultation bilaterally. No wheezes, rhonchi, or crackles. ABDOMEN: Soft, nontender, and nondistended. Positive bowel sounds. EXTREMITIES: No palpable edema. Range of motion is intact. SKIN: Surgical scar over the sternum is healing appropriately. No other abnormalities of the skin. NEUROLOGIC: Cranial nerve II through XII are grossly intact. Deep tendon reflexes are normoreflexic. Muscle tone is normal. Muscle strength is 5/5. DIAGNOSTIC DATA: Laboratory abnormalities: No labs this morning. EKG: Reviewed. Imaging studies: Reviewed. ASSESSMENT AND PLAN: 1. Symptomatic bradycardia: Temporarily resolved. Awaiting physician practice manager evaluation to decide whether or not pacemaker implantation is appropriate. 2. Recent aortic valve replacement: No clinical issues. Continue aspirin. 3. Essential hypertension: Current at goal. Continue home medications. 4. Hyperlipidemia: Continue statin from home. 5. Diabetes mellitus, type 2: It appears well controlled. Sliding-scale insulin as needed. 6. Obesity with BMI 38. 7. Lifestyle modification changes recommended. 8. Code status: Full code. 9. Compression, SCDs due to short hospital stay. 10. Disposition: Observation on telemetry. 11. Clinical status: Stable. 12. Prognosis: Guarded. 13. Expected discharge: To be determined based on physician practice manager recommendation. Total time spent: 32 minutes. Job ID: [id number]
--- NOTE | 2018-11-27 15:48 | EKG ---
Test Reason : Blood Pressure : / mmHG Vent. Rate : 051 BPM Atrial Rate : 051 BPM P-R Int : 150 ms QRS Dur : 164 ms QT Int : 574 ms P-R-T Axes : 066 052 193 degrees QTc Int : 529 ms Sinus bradycardia with Premature atrial complexes Left bundle branch block Abnormal ECG Confirmed by EDMUNDO MUIR (2) on 11/27/2018 3:48:13 PM Referred By: Confirmed By:EDMUNDO MUIR
[2018-11-27] MEDS: Atorvastatin Calcium 20 MG TAB PO SCH (21:06)
--- NOTE | 2018-11-27 21:57 | CON ---
DATE OF CONSULTATION: HISTORY: Jourdan Pedraza is a 63-year-old male, who is followed by Dr. You. He had severe aortic stenosis and on his followup in August 2018, complained of shortness of breath, [id number] on exertion. Also with heavy exertion, he would have some chest pressure. He would become extremely fatigued. He underwent cardiac catheterization at [facility] and [facility], which revealed no significant coronary artery disease. Then, on November 13, 2018, he underwent aortic valve replacement. Initially, this was to be a minimally invasive surgery, however, it was found that his costal cartilage had ossified and his ribs could not be spread apart and so this was turned into a traditional sternotomy. Valve replacement was with a #25 Magna bioprosthetic valve. His postop course was fairly unremarkable except he did have some bradycardia at times. He was seen by Dr. You and was felt that a pacemaker placement was not needed. He was discharged on November 18. Since being home, Mr. Pedraza states that he essentially feels just like he did prior to aortic valve replacement. He continues to have exertional dyspnea at times and would become extremely fatigued. He went and saw his primary physician and an EKG there revealed episodes of 2:1 AV block. Also, he had left bundle- branch block and in review of the EKGs on November 13 and November 14, he had left bundle-branch block at that time. EKGs from 2010 and 2012 do not show a bundle branch block. However , on looking at his echocardiogram in the office from March 2018, he did have a wide QRS at that time. Since being in the hospital, he continues to have episodes of bradycardia and at times 2:1 block. PAST MEDICAL HISTORY: Aortic stenosis status post aortic valve replacement, diabetes, hypertension, bladder cancer, hyperlipidemia. PAST SURGICAL HISTORY: Aortic valve replacement, umbilical hernia repair, bladder surgery. MEDICATIONS: 1. Aspirin 325 daily. 2. Atorvastatin 20 at bedtime. 3. Fluoxetine 10 mg daily. 4. Furosemide 40 q.a.m. 5. [place] p.r.n. 6. Metformin 500 mg q.a.m. 7. Potassium 10 mEq q.a.m. SOCIAL HISTORY: He does not smoke or drink. ALLERGIES: NONE. REVIEW OF SYSTEMS: A 10-point review of systems is unremarkable. PHYSICAL EXAMINATION: VITAL SIGNS: Blood pressure 122/64, pulse 79. HEENT: PERRL. NECK: Supple. CHEST: Clear. CARDIAC: S1 and S2 normal without any S3 or S4. There is a 1/6 systolic murmur in the aortic area. Carotid upstrokes normal without bruits. ABDOMEN: Normal bowel sounds without tenderness or organomegaly. EXTREMITIES: Reveal 1+ pretibial edema. NEUROLOGIC: Grossly intact. SKIN: Warm and dry. LABORATORY DATA: EKG here reveals normal sinus rhythm with episodes of 2:1 AV block and left bundle-branch block. Hemoglobin 12.5, hematocrit 37.7, white count 07681, platelets 313,000. Sodium 139, potassium 4.0, chloride 106, carbon dioxide 25, BUN 10, creatinine 0.86. Troponin I 0.066. IMPRESSION: 1. Symptomatic bradycardia with excessive fatigue, lightheadedness, shortness of breath with finding of 2:1 AV block with heart rates in the low 40s. He states that he feels essentially like he had prior to aortic valve replacement. 2. Status post aortic valve replacement with bioprosthetic valve. 3. Normal coronary arteries. 4. Hypertension. 5. Diabetes. 6. Hyperlipidemia. 7. Obesity. 8. Left bundle branch block which developed sometime between 2012 and March 2018. PLAN: Echocardiogram will be performed to reassess left ventricular function. It is recommended that pacemaker be placed. Risks of this were discussed including , infection, bleeding, blood clot formation, pneumothorax, tamponade, reoperation for lead dislodgement, etc. He understands and agrees to proceed. Job ID: [id number] [facility]
[2018-11-28] MEDS: HYDROcodone/Acetaminophen 5/325 mg Tablet PO PRN ×5 (01:51→23:26)
[2018-11-28 05:55] LABS: Hemoglobin 11.3 g/dL (14.0-18.0); Mean Corpuscular HGB CONC 32.8 g/dL (32.0-36.0); Mean Corpuscular Hemoglobin 30.3 pg (27.0-31.0); Mean Corpuscular Volume 92.6 fL (78.0-98.0); Mean Platelet Volume 8.1 fL (7.4-10.4); Platelet Count 293 thou/uL (130-400); RBC Distribution Width 12.2 % (11.5-14.5); Red Blood Cell (RBC) Count 3.71 mill/uL (4.70-6.10); White Blood Cell (WBC) Count 7.8 thou/uL (4.8-10.8)
[2018-11-28 06:06] LABS: Anion Gap 11 mmol/L (10-20); BUN (Urea Nitrogen) 12 mg/dL (8.4-25.7); Calc. Creatinine Clearance 165 mL/min (70-130); Calcium 8.5 mg/dL (7.8-10.44); Carbon Dioxide 29 mmol/L (23-31); Chloride 104 mmol/L (98-107); Estimated GFR-MDRD Greater than 90; Glucose 94 mg/dL (80-115); Magnesium 2.1 mg/dL (1.6-2.6); Potassium 3.6 mmol/L (3.5-5.1); Sodium 140 mmol/L (136-145)
[2018-11-28] MEDS: Potassium Chloride 10 MEQ TAB PO SCH (08:48)
[2018-11-28] MEDS: Aspirin 325 mg Enteric Coated Tablet PO SCH (08:48)
[2018-11-28] MEDS: Furosemide 40 MG TAB PO SCH (08:48)
[2018-11-28] MEDS: FLUoxetine HCl 10 MG CAP PO SCH (08:48)
--- NOTE | 2018-11-28 15:16 | PRG ---
DATE OF SERVICE: 11/28/2018 CHIEF COMPLAINT: Bradycardia. HISTORY OF PRESENT ILLNESS: This is a 63-year-old male with recent aortic valve replacement, hypertension, hyperlipidemia, diabetes, obesity with BMI 38, who was sent by his primary care physician for bradycardia and fatigue. He was admitted for symptomatic bradycardia and evaluation for pacemaker. SUBJECTIVE: The patient is seen and evaluated at bedside. Family members are present. He has no acute complaints. Per nurse, heart rate in the normal range without identifiable blocks. No other acute events overnight. REVIEW OF SYSTEMS: All systems are reviewed and negative except for the ones mentioned above. PHYSICAL EXAMINATION: VITAL SIGNS: Blood pressure 138/60, pulse 78, respirations 16, oxygen saturation 93% on room air, temperature 98.9 Fahrenheit. GENERAL: No acute distress. Awake, alert, and oriented x3. HEAD AND NECK: Pupils are reactive to light. Extraocular muscles are intact. Mucous membranes are moist. Neck is supple. CARDIOVASCULAR: Rhythm and rate are regular. No audible murmurs, rubs, or gallops. PULMONARY: Clear to auscultation bilaterally. No wheezes, rhonchi, or crackles. ABDOMEN: Soft, nontender, nondistended, positive bowel sounds. EXTREMITIES: No palpable edema. Pulses are symmetric. Range of motion is intact. SKIN: Surgical scar over the sternum is healing appropriately. No other abnormalities. NEUROLOGIC: Cranial nerves 2 through 12 are grossly intact. Deep tendon reflexes are normoreflexic. CURRENT MEDICATIONS: Reviewed. LABORATORY DATA: Laboratory abnormalities: Hemoglobin 11.3. Hematocrit 34.4. Chemistry is normal. ASSESSMENT AND PLAN: 1. Symptomatic bradycardia: Currently resolved. Evaluated by Cardiology and the patient will undergo pacemaker implantation on Friday. 2. Recent aortic valve replacement: No issues. 3. Essential hypertension: Currently at goal. 4. Hyperlipidemia: Continue statin. 5. Controlled diabetes mellitus type 2. 6. Obesity with BMI 38: Lifestyle modification changes recommended. CODE STATUS: Full code. CORE MEASURE: SCDs. DISPOSITION: Inpatient on telemetry. CLINICAL STATUS: Stable. PROGNOSIS: Guarded. EXPECTED DISCHARGE: To be determined after pacemaker implantation. TOTAL TIME SPENT: 28 minutes. Job ID: [id number]
[2018-11-28] MEDS ORDERED: Potassium Chloride 20 MEQ TAB PO SCH (17:45)
[2018-11-28] MEDS ORDERED: Furosemide 40 MG/4 ML VIAL SLOW IVP SCH (17:45)
[2018-11-28] MEDS: Atorvastatin Calcium 20 MG TAB PO SCH (20:45)
[2018-11-29 05:23] LABS: Hemoglobin 11.5 g/dL (14.0-18.0); Mean Corpuscular Hemoglobin 30.8 pg (27.0-31.0); Mean Corpuscular Volume 93.4 fL (78.0-98.0); Mean Platelet Volume 8.2 fL (7.4-10.4); Platelet Count 293 thou/uL (130-400); RBC Distribution Width 12.2 % (11.5-14.5); Red Blood Cell (RBC) Count 3.74 mill/uL (4.70-6.10); White Blood Cell (WBC) Count 7.1 thou/uL (4.8-10.8)
[2018-11-29 05:35] LABS: Anion Gap 12 mmol/L (10-20); BUN (Urea Nitrogen) 10 mg/dL (8.4-25.7); Calc. Creatinine Clearance 181 mL/min (70-130); Calcium 8.4 mg/dL (7.8-10.44); Carbon Dioxide 26 mmol/L (23-31); Chloride 103 mmol/L (98-107); Estimated GFR-MDRD Greater than 90; Glucose 98 mg/dL (80-115); Potassium 3.8 mmol/L (3.5-5.1); Sodium 137 mmol/L (136-145)
[2018-11-29] MEDS: Aspirin 325 mg Enteric Coated Tablet PO SCH (09:30)
[2018-11-29] MEDS: Furosemide 40 MG TAB PO SCH ×2 (09:31→15:23)
[2018-11-29] MEDS: Potassium Chloride 10 MEQ TAB PO SCH (09:31)
[2018-11-29] MEDS: HYDROcodone/Acetaminophen 5/325 mg Tablet PO PRN ×3 (09:31→21:41)
[2018-11-29] MEDS: FLUoxetine HCl 10 MG CAP PO SCH (09:31)
--- NOTE | 2018-11-29 13:58 | PRG ---
DATE OF SERVICE: 11/29/2018 CHIEF COMPLAINT: Bradycardia. HISTORY OF PRESENT ILLNESS: A 63-year-old male with recent aortic valve replacement, hypertension, hyperlipidemia, diabetes, obesity, who was sent by his primary care physician for bradycardia and fatigue. He was admitted for symptomatic bradycardia and evaluation for pacemaker. SUBJECTIVE: The patient seen and evaluated at bedside. Family members are present. He has no chest pain. He has no other complaints. Per nurse, no other acute events overnight. REVIEW OF SYSTEMS: All systems are reviewed and negative except for the ones mentioned above. PHYSICAL EXAMINATION: VITAL SIGNS: Blood pressure 141/71, pulse 80, respirations 16, oxygen saturation 95% on room air, temperature 98.7 Fahrenheit. GENERAL: No acute distress. Awake, alert, oriented x3. HEAD AND NECK: Pupils are equal, reactive to light. Extraocular muscles are intact. Mucous membranes are moist. NECK: Supple. CARDIOVASCULAR: Rhythm and rate are regular. No audible murmurs, rubs, or gallops. PULMONARY: Clear to auscultation bilaterally. No wheezes, rhonchi, or crackles. ABDOMEN: Soft, nontender, nondistended, positive bowel sounds. EXTREMITIES: No palpable edema. Pulses are symmetric. Range of motion is intact. SKIN: Surgical scar over the sternum is healing appropriately. No other abnormalities. NEUROLOGIC: Cranial nerves 2 through 12 are grossly intact. Deep tendon reflexes are normoreflexic. LABORATORY DATA: Laboratory abnormalities; hemoglobin is 11.5, hematocrit 35. Chemistry is normal. CURRENT MEDICATIONS: Reviewed. ASSESSMENT AND PLAN: 1. Symptomatic bradycardia: Undergoing pacemaker implantation on Friday. 2. Recent aortic valve replacement: No issues. 3. Essential hypertension: Currently at goal. 4. Hyperlipidemia: Continue statin. 5. Controlled diabetes mellitus type 2: Continue current treatment. 6. Obesity with BMI 38: Lifestyle modification changes recommended. CODE STATUS: Full code. CORE MEASURE: SCDs. DISPOSITION: Inpatient telemetry. CLINICAL STATUS: Stable. PROGNOSIS: Guarded. EXPECTED DISCHARGE: To be determined after pacemaker implantation. TOTAL TIME SPENT: 25 minutes. Job ID: [id number]
[2018-11-29] MEDS: Atorvastatin Calcium 20 MG TAB PO SCH (21:24)
[2018-11-30 06:59] LABS: Hemoglobin 11.7 g/dL (14.0-18.0); Mean Corpuscular HGB CONC 32.2 g/dL (32.0-36.0); Mean Corpuscular Volume 93.1 fL (78.0-98.0); Mean Platelet Volume 7.8 fL (7.4-10.4); Platelet Count 302 thou/uL (130-400); RBC Distribution Width 12.6 % (11.5-14.5); Red Blood Cell (RBC) Count 3.89 mill/uL (4.70-6.10); White Blood Cell (WBC) Count 7.3 thou/uL (4.8-10.8)
[2018-11-30 07:09] LABS: Anion Gap 12 mmol/L (10-20); BUN (Urea Nitrogen) 11 mg/dL (8.4-25.7); Calc. Creatinine Clearance 177 mL/min (70-130); Calcium 8.6 mg/dL (7.8-10.44); Carbon Dioxide 26 mmol/L (23-31); Chloride 104 mmol/L (98-107); Estimated GFR-MDRD Greater than 90; Glucose 107 mg/dL (80-115); Potassium 3.6 mmol/L (3.5-5.1); Sodium 138 mmol/L (136-145)
[2018-11-30] MEDS ORDERED: CEFAZOLIN 1 GM VIAL ONE ×2 (07:38→07:45)
[2018-11-30] MEDS ORDERED: Gentamicin 80 MG/2 ML VIAL ONE (07:45)
[2018-11-30] MEDS ORDERED: Midazolam HCl 2 mg/2 ml Vial ONE (07:56)
[2018-11-30] MEDS ORDERED: Fentanyl 100 MCG/2 ML VIAL ONE (07:56)
[2018-11-30] MEDS ORDERED: Lidocaine 1% (PF) 30 ML VIAL ONE ×3 (08:05→08:52)
[2018-11-30] MEDS ORDERED: Vancomycin HCl 500 MG VIAL ONE (08:52)
--- NOTE | 2018-11-30 10:42 | RAD ---
PORTABLE CHEST 1 VIEW: DATE: 11/30/2018. TIME: 10:20 a.m. HISTORY: Post cardiac device placement. FINDINGS: Comparison is made with the exam of 11/26/2018. Interval placement of a left-sided pacing device is s een with bipolar leads in the right atrium and the right ventricle. No pneumothoraces, janna pulmona ry edema, or large effusions are seen. Pulmonary vascularity is at upper limits of normal. The hear t is enlarged. Changes of median sternotomy are redemonstrated. POS: TPC
[2018-11-30] MEDS: HYDROcodone/Acetaminophen 5/325 mg Tablet PO PRN ×3 (11:36→21:47)
[2018-11-30] MEDS: FLUoxetine HCl 10 MG CAP PO SCH (11:37)
[2018-11-30] MEDS: Aspirin 325 mg Enteric Coated Tablet PO SCH (11:37)
[2018-11-30] MEDS: Furosemide 40 MG TAB PO SCH ×2 (11:37→14:39)
--- NOTE | 2018-11-30 11:41 | CCL ---
CARDIOLOGY PROCEDURE NOTE: Date: 11/30/18 PROCEDURE: Placement of dual chamber MRI-compatible pacemaker. INDICATION: 2:1 AV block. PROCEDURE DETAILS: The patient was brought to the cardiac mill labor supervisor and the left subclavian area was prepped and draped. The patient was given Versed 1 mg and Fentanyl 25 mg. Later in the case, another 25 mg of Fentanyl wa s given for 1 hour and 2 minutes of moderate conscious sedation. A left brachial venogram was perform ed using a 50/50 mix of contrast and saline. Due to the patient's large size, the vein was very deep. Decision was made to place to the pocket first. This was manufactured using blunt and sharp dissecti on with electrocautery for hemostasis. Antibiotic solution-soaked gauze was placed into the pocket. T he subclavian area was cannulated. Using a 9 Icelandic sheath, the ventricular lead was inserted and adv anced into the RV apex. The J-wire remained in place. Ventricular lead was advanced to the right vent ricular apex and screwed into place. The sheath was then removed. A 7 Icelandic sheath was then placed o deja the same wire and the atrial lead was inserted and screwed into the right atrium. Right atrial lead: Threshold 1.9, impedance 534, P-wave 1.4. Right ventricular lead: R-wave 6.8, impedance 654, threshold 0.7. The tabs on the tie-downs were removed. Both leads were secured in place with 2 sutures of 0 silk. Th e antibiotic solution-soaked gauze was removed and the subcutaneous pocket was irrigated with copious amounts of antibiotic solution Leads were attached to the generator and this was placed into the poc ket and secured in place with one suture of 0 silk. The incision was then closed using two layers of running 3-0 Vicryl and one layer of running 4-0 Vicryl. The incision was then covered with Dermabond. The patient tolerated the procedure well. Upon attaching the wires to the pacemaker generator, the patient noted a dramatic improvement in his breathing and stated that he was no longer wheezing.
[2018-11-30] MEDS ORDERED: Iopamidol 370 76% 50 ML VIAL FS ONE (12:01)
--- NOTE | 2018-11-30 13:52 | PDOC.PN ---
- Subjective Encounter Start Date: 11/30/18 Encounter Start Time: 07:35 CHIEF COMPLAINT: Bradycardia. HISTORY OF PRESENT ILLNESS: A 63-year-old male with recent aortic valve replacement, hypertension, hyperlipidemia, diabetes, obesity, who was sent by his primary care physician for bradycardia and fatigue. He was admitted for symptomatic bradycardia and evaluation for pacemaker. SUBJECTIVE: The patient seen and evaluated at bedside. Family members are present. He denieschest pain. He has no other complaints. Per nurse, no other acute events overnight. REVIEW OF SYSTEMS: All systems are reviewed and negative except for the ones mentioned above. - Objective Full code MAR Reviewed: Yes Vital Signs & Weight: Vital Signs (12 hours) Temp Pulse Resp BP Pulse Ox 11/30/18 11:38 95 18 95 11/30/18 07:52 95 11/30/18 07:50 98.6 F 82 16 142/64 H 95 11/30/18 06:38 92 16 95 11/30/18 04:00 98.5 F 89 18 146/68 H 98 Weight Weight 273 lb 6 oz Result Diagrams: 11/30/18 06:40 11/30/18 06:40 Additional Labs: Accuchecks 11/30/18 11/30/18 11/29/18 10:50 05:44 20:40 POC Glucose 109 104 151 H 11/29/18 16:50 POC Glucose 143 H Radiology Reviewed by me: Yes EKG Reviewed by me: Yes Phys Exam - Physical Examination HEENT: PERRLA, moist MMs, oral pharynx no lesions Neck: no nodes, no JVD, supple, full ROM Respiratory: no wheezing, no rales, no rhonchi, clear to auscultation bilateral Cardiovascular: RRR, no significant murmur, no rub Gastrointestinal: soft, non-tender, no distention, positive bowel sounds Musculoskeletal: no edema, pulses present Neurological: non-focal, normal sensation, moves all 4 limbs Psychiatric: normal affect, A&O x 3 Skin: no rash, normal turgor, cap refill <2 seconds Deviation from normal: sternal surgical scar Dx/Plan (1) Symptomatic sinus bradycardia Code(s): R00.1 - BRADYCARDIA, UNSPECIFIED Status: Acute Plan: Temporarily resolved. For pacer placement today per cardiology (2) Aortic valve replaced Code(s): Z95.2 - PRESENCE OF PROSTHETIC HEART VALVE Status: Chronic (3) Essential hypertension Code(s): I10 - ESSENTIAL (PRIMARY) HYPERTENSION Status: Chronic Plan: at goal (4) Dyslipidemia Code(s): E78.5 - HYPERLIPIDEMIA, UNSPECIFIED Status: Chronic (5) Controlled diabetes mellitus Code(s): E11.9 - TYPE 2 DIABETES MELLITUS WITHOUT COMPLICATIONS Status: Chronic Qualifiers: Diabetes mellitus type: type 2 (6) Obesity (BMI 30-39.9) Code(s): E66.9 - OBESITY, UNSPECIFIED Status: Chronic Plan: weight loss recommended - Plan cont current plan of care CODE; FULL CORE; SCD DISP; TELEMETRY PROG; GUARDED CLINICAL STATUS; GUARDED EXPECTED DISCHARGE; IN THE NEXT 48 HOURS TOTAL TIME SPENT; 25 MINUTES DATE OF SERVICE: 11/30/2018
[2018-11-30] MEDS: Potassium Chloride 10 MEQ TAB PO SCH (14:36)
[2018-11-30] MEDS: Cephalexin 250 MG CAP PO SCH ×2 (14:40→20:03)
[2018-11-30] MEDS: Atorvastatin Calcium 20 MG TAB PO SCH (20:03)
[2018-11-30] MEDS ORDERED: Benzonatate 100 MG CAP PO PRN (20:42)
[2018-11-30] MEDS ORDERED: Diabetic Tussin 200 MG/10 ML UDCUP PO PRN (20:42)
[2018-12-01] MEDS: HYDROcodone/Acetaminophen 5/325 mg Tablet PO PRN ×2 (04:04→08:48)
[2018-12-01 05:00] LABS: Hemoglobin 11.6 g/dL (14.0-18.0); Mean Corpuscular HGB CONC 32.8 g/dL (32.0-36.0); Mean Corpuscular Hemoglobin 30.6 pg (27.0-31.0); Mean Corpuscular Volume 93.3 fL (78.0-98.0); Mean Platelet Volume 7.7 fL (7.4-10.4); Platelet Count 300 thou/uL (130-400); RBC Distribution Width 12.7 % (11.5-14.5); Red Blood Cell (RBC) Count 3.78 mill/uL (4.70-6.10)
[2018-12-01 05:15] LABS: Anion Gap 11 mmol/L (10-20); BUN (Urea Nitrogen) 11 mg/dL (8.4-25.7); Calc. Creatinine Clearance 189 mL/min (70-130); Calcium 8.5 mg/dL (7.8-10.44); Carbon Dioxide 28 mmol/L (23-31); Chloride 102 mmol/L (98-107); Estimated GFR-MDRD Greater than 90; Glucose 100 mg/dL (80-115); Magnesium 2.1 mg/dL (1.6-2.6); Potassium 3.6 mmol/L (3.5-5.1); Sodium 137 mmol/L (136-145)
[2018-12-01 08:05] VITALS: TEMP 98.3
[2018-12-01] MEDS: Potassium Chloride 10 MEQ TAB PO SCH (08:07)
[2018-12-01] MEDS: Aspirin 325 mg Enteric Coated Tablet PO SCH (08:07)
[2018-12-01] MEDS: Furosemide 40 MG TAB PO SCH (08:08)
[2018-12-01] MEDS: FLUoxetine HCl 10 MG CAP PO SCH (08:08)
[2018-12-01] MEDS: Cephalexin 250 MG CAP PO SCH (08:08)
[2018-12-01 12:08] VITALS: BP 135/66
--- NOTE | 2018-12-02 04:25 | DIS ---
DATE OF ADMISSION: 11/27/2018 DATE OF DISCHARGE: 12/01/2018 ADMITTING PHYSICIAN: Dr. Paz. DISCHARGE PHYSICIAN: Dr. Burton. PRIMARY CARE PHYSICIAN: Dr. Renu Crane. ADMITTING DIAGNOSES: 1. Symptomatic bradycardia. 2. Heart block, Mobitz type 2. 3. History of recent aortic valve replacement. 4. History of hypertension. 5. Hyperlipidemia. 6. Diabetes. 7. History of anxiety. DISCHARGE DIAGNOSES: 1. Symptomatic bradycardia. 2. Status post pacemaker placement. 3. Recent aortic valve replacement. 4. Essential hypertension. 5. Hyperlipidemia. 6. Controlled diabetes mellitus type 2. 7. Obesity with BMI of 38. CONSULTS: Cardiology. PROCEDURES: Pacemaker placement. SPECIAL IMAGING: Echocardiogram. HOSPITAL COURSE: This is a 63-year-old male with history of recent aortic valve replacement, hyperlipidemia, hypertension, diabetes, obesity, who was sent by his primary care physician for bradycardia and fatigue. He was admitted for inpatient care. Cardiology was consulted. The patient was evaluated for pacemaker, possible implantation. He underwent a pacemaker placement without complications. He is now stable for discharge home. PHYSICAL EXAMINATION: VITAL SIGNS: Blood pressure 115/55, pulse 89, respirations 17, oxygen saturation 95% on room air, temperature 98.3 Fahrenheit. GENERAL: No distress. Awake, alert, oriented x3. HEAD AND NECK: Pupils are reactive to light. Extraocular muscles are intact. Mucous membranes are moist. Neck is supple. CARDIOVASCULAR: Rhythm and rate are regular. No audible murmurs, rubs, or gallops. PULMONARY: Clear to auscultation bilaterally. No wheezes, rhonchi, or crackles. ABDOMEN: Soft, nontender, nondistended, positive bowel sounds. EXTREMITIES: No palpable edema. Pulses are symmetric. Capillary refill less than 3 seconds. Range of motion is intact. SKIN: Surgical scars in the sternum and left upper chest appear to be healing appropriately. Good moist and color. NEUROLOGIC: Cranial nerves 2 through 12 are grossly intact. Deep tendon reflexes are normoreflexic. LABORATORY ABNORMALITIES: Hemoglobin 12, hematocrit 35. Chemistries normal. DISCHARGE DISPOSITION: Home with self care. DISCHARGE CONDITION: Stable. DISCHARGE DIET: Cardiac and diabetic diet as tolerated. DISCHARGE ACTIVITY: Increase activity as tolerated. DISCHARGE MEDICATIONS: See medical reconciliation for details. DISCHARGE FOLLOWUP: Follow up with Cardiology as directed, with primary care physician in 1-2 weeks. DISCHARGE INSTRUCTIONS: The patient was instructed to return to the emergency department if symptoms worsen. Take his medications as directed and not to miss any appointments. TIME OF DISCHARGE AND PLANNIN minutes. Job ID: [id number]
== END 2018-12-01 12:46 | disposition home or self-care (01) | DRG 244 ==
LOC: ERS 15:39 → 2SW 18:57 → OBSVTOIN 11-27 16:01 → 2NO 11-27 18:32
PROVIDERS: ADMIT Internal Medicine; ATTEND Internal Medicine
PROC: 0JH606Z Insertion of Pacemaker, Dual Chamber into Chest Subcutaneous Tissue and Fascia, Open Approach (ICD-10-PCS; principal; 2018-11-30)
PROC: 02H63JZ Insertion of Pacemaker Lead into Right Atrium, Percutaneous Approach (ICD-10-PCS; 2018-11-30)
PROC: 02HK3JZ Insertion of Pacemaker Lead into Right Ventricle, Percutaneous Approach (ICD-10-PCS; 2018-11-30)
DX: I44.1 Atrioventricular block, second degree (principal); I10 Essential (primary) hypertension; F41.9 Anxiety disorder, unspecified; E66.9 Obesity, unspecified; I44.7 Left bundle-branch block, unspecified; E11.9 Type 2 diabetes mellitus without complications; Z79.84 Long term (current) use of oral hypoglycemic drugs; Z68.38 Body mass index [BMI] 38.0-38.9, adult; Z79.82 Long term (current) use of aspirin; Z79.899 Other long term (current) drug therapy; Z95.2 Presence of prosthetic heart valve; Z85.51 Personal history of malignant neoplasm of bladder
CPT/HCPCS: 33211; 36005; 36415; 36416; 71045; 75820; 80048; 80053; 82553; 83735; 84484; 85025; 85027; 93005; 93306; 93798; 94640; 99152; 99153; C1785; C1898; J0690; J1580; J1940; J2001; J2250; J3010; J3370; J7620; Q9967

== ENCOUNTER 2018-12-17 09:24 | Outpatient (CLI) | payer OTHER ==
--- NOTE | 2018-12-17 09:49 | RAD ---
Two-view chest: HISTORY: Cough COMPARISON: 11/30/2018 Cardiomegaly with postop sternotomy change. Transvenous pacemaker leads unchanged. Bilateral effusion s and bibasilar atelectasis, more prominent in the right chest. Mild vascular congestion. IMPRESSION: Above findings do not appear significantly changed from prior exam.
== END 2018-12-17 09:25 | disposition home or self-care (01) ==
LOC: SCSRAD 09:24
PROVIDERS: ATTEND Family Medicine
DX: R05 Cough (principal)
CPT/HCPCS: 71046

== ENCOUNTER 2018-12-27 18:05 | Inpatient (IN) | payer OTHER ==
[~2018-12-27 18:05] MED LIST: ISOVUE-370 76%-LOCM 1 ML ONE
[2018-12-27] MEDS ORDERED: Cefepime 2 GM VIAL ONE (18:33)
--- NOTE | 2018-12-27 18:35 | RAD ---
EXAM: CHEST ONE VIEW HISTORY: Cough and fever for one day. COMPARISON: 11/30/2018 FINDINGS: Dual-lead left including cardiac pacemaking device remains in place. Median sternotomy wires are agai n seen. Cardiac silhouette is enlarged. The pulmonary vasculature is unchanged from prior study. Again noted are bilateral pleural effusions and bibasilar areas of increased density which may repre sent bibasilar atelectasis. Findings are greater on the right and stable when compared to prior study as well as study on 12/17/2018. Linear areas of scarring are again seen in the lateral aspect lef t lung base. Degenerative changes are again seen in the spine. IMPRESSION: Overall stable chest with bibasilar pleural-parenchymal lung changes which have the appearance of jorge ateral pleural effusions and atelectasis greater on the right.
[2018-12-27 18:39] LABS: #Basophils 0.1 thou/uL (0.0-0.2); #Eosinphils 1.8 thou/uL (0.0-0.7); #Lymphocytes 2.4 thou/uL (1.20-3.40); #Monocytes 1.1 thou/uL (0.11-0.59); #Neutrophils 9.1 thou/uL (1.40-6.50); %Basophils 0.5 % (0.0-1.0); %Eosinophils 12.2 % (0.0-10.0); %Lymphocytes 16.6 % (21.0-51.0); %Monocytes 7.6 % (0.0-10.0); %Neutrophils 63.1 % (42.0-75.0); Hemoglobin 13.7 g/dL (14.0-18.0); Mean Corpuscular HGB CONC 31.4 g/dL (32.0-36.0); Mean Corpuscular Hemoglobin 28.3 pg (27.0-31.0); Mean Corpuscular Volume 90.3 fL (78.0-98.0); Mean Platelet Volume 8.2 fL (7.4-10.4); Platelet Count 313 thou/uL (130-400); RBC Distribution Width 14.4 % (11.5-14.5); Red Blood Cell (RBC) Count 4.85 mill/uL (4.70-6.10); White Blood Cell (WBC) Count 14.5 thou/uL (4.8-10.8)
[2018-12-27 18:47] LABS: INR-International Normal Ratio 1.1; PTT 30.1 SEC (22.9-36.1); Prothrombin Time 13.9 SEC (12.0-14.7)
[2018-12-27 19:02] LABS: ALT (SGPT) 22 U/L (8-55); AST (SGOT) 32 U/L (5-34); Albumin 4.2 g/dL (3.4-4.8); Alkaline Phosphatase 102 U/L (40-150); Anion Gap 14 mmol/L (10-20); BUN (Urea Nitrogen) 8 mg/dL (8.4-25.7); Bilirubin, Total 0.8 mg/dL (0.2-1.2); Calc. Creatinine Clearance 0 mL/min (70-130); Calcium 9.3 mg/dL (7.8-10.44); Carbon Dioxide 27 mmol/L (23-31); Chloride 97 mmol/L (98-107); Estimated GFR-MDRD Greater than 90; Globulin 3.3 g/dL (2.4-3.5); Glucose 103 mg/dL (80-115); Magnesium 1.9 mg/dL (1.6-2.6); Potassium 3.7 mmol/L (3.5-5.1); Protein, Total 7.5 g/dL (5.8-8.1); Sodium 134 mmol/L (136-145)
[2018-12-27] MEDS ORDERED: Acetaminophen 500 MG TAB ONE (19:09)
[2018-12-27 19:38] LABS: Actual Bicarbonate (HCO3a) 22.1 mEq/L (22-28); Analyzer IN Cardio ER; Base Excess (BEa) -2.6 mEq/L (-2.0 to +3.0); CO2 Tension 38.1 mmHg (35.0-45.0); Calcium, Ionized 1.09 mmol/L (1.12-1.30); Carboxyhemoglobin (COHb) 0.7 gm% (0.0-3.0); Hemoglobin (Hb) 13.6 g/dL (14.0-18.0); Potassium - ABG Lab 3.75 mmol/L (3.70-5.30); pH, Arterial 7.38 (7.35-7.45)
[2018-12-27 19:40] LABS: O2 Tension (PaO2) 58.2 mmHg (> 80.0)
[2018-12-27 19:41] LABS: ALV-art Gradient 93.815 (0-20); Puncture Site LRA
--- NOTE | 2018-12-27 20:14 | CT ---
CTA CHEST WITH CONTRAST: Technique: Multiple axial tomograms were obtained through the chest following pulmonary angio protoco l with multiplanar reconstruction and 3D post processing. Indications: Shortness of breath. Chest pain. Recent post op aortic valve replacement. FINDINGS: Pulmonary arteries are suboptimally opacified and there is significant artifact due to patient arm po sition. Patient is unable to lift arms above the head. This limits the study. There is no definite ev idence of proximal pulmonary embolus. Thoracic aorta is unremarkable with no evidence of dissection. Moderate sized right pleural effusion with dense right basilar atelectasis and consolidation. Cardiom egaly with vascular congestion. There is patchy alveolar density in the left posterior lung base whic h has the appearance of inflammatory infiltrate rather than atelectasis. Nonspecific adenopathy is se en in the mediastinal and hilar regions. Left hilar lymph node measures up to 2 cm. IMPRESSION: 1. Exam is severely degraded due to suboptimal pulmonary artery opacification and artifact due to arm positioning as noted above. No evidence of proximal pulmonary embolus. 2. Moderate sized right pleural effusion and dense right basilar atelectasis and consolidation. 3. Patchy alveolar densities in the posterior left lung base has the appearance of inflammatory infil trate. POS: AGW
[2018-12-27 20:37] LABS: Bilirubin Negative (Negative); Blood, Urine Negative (Negative); Clarity CLEAR (Clear); Glucose, Urine (Dipstick) Negative (Negative); Leukocyte Negative (Negative); Nitrite Negative (Negative); Protein, Urine (Dipstick) Negative (Neg-Trace); Specific Gravity, Urine 1.038 (1.002-1.036); Urobilinogen 0.2 mg/dL (0.2-1.0)
[2018-12-27] MEDS ORDERED: CCU Electrolyte Replacement 1 EACH FS ONE (21:43)
[2018-12-27] MEDS ORDERED: Potassium Phosphate 15 MMOL in Sodium Chloride 0.9% 250 ML 250 ML IV PRN (21:50)
[2018-12-27] MEDS ORDERED: Potassium Phosphate 9 MMOL in Sodium Chloride 0.9% 100 ML IVPB PRN (21:50)
[2018-12-27] MEDS ORDERED: Potassium Chloride 40 MEQ in Premix Bag 1 BAG IVPB PRN (21:50)
[2018-12-27] MEDS ORDERED: Potassium Phosphate 12 MMOL in Sodium Chloride 0.9% 250 ML 250 ML IV PRN (21:50)
[2018-12-27] MEDS ORDERED: CCU ELECTROLYTE REPLACEMENT PROTOCOL FS PRN (21:50)
[2018-12-27] MEDS ORDERED: PHOS-NAK 1 PKT PACK PO PRN ×2 (21:50)
[2018-12-27] MEDS ORDERED: Potassium Chloride 40 MEQ in Sodium Chloride 0.9% 250 ML 250 ML IVPB PRN (21:50)
[2018-12-27] MEDS ORDERED: Magnesium Oxide 400 MG TAB PO PRN ×2 (21:50)
[2018-12-27] MEDS ORDERED: Potassium Chloride 20 MEQ TAB PO PRN (21:50)
[2018-12-27] MEDS ORDERED: Magnesium 2 GM/50 ML 2 GM in Premix Bag 1 BAG IVPB PRN (21:50)
[2018-12-27 22:33] LABS: Lactic Acid 1.4 mmol/L (0.5-2.2)
--- NOTE | 2018-12-27 22:35 | OP ---
DATE OF PROCEDURE: 12/27/2018 PROCEDURE: Right thoracentesis. PREOPERATIVE DIAGNOSIS: Right pleural effusion. POSTOPERATIVE DIAGNOSIS: Right pleural effusion. ANESTHESIA: 1% lidocaine without epinephrine. DESCRIPTION OF PROCEDURE: Informed consent was obtained from the patient. He understood the risks involved including bleeding, infection, external lung puncture. He agreed to proceed. Prior to the procedure, time-out was taken. His right side was labeled with a pen. The operative site was identified with ultrasound guidance. The site was approximately in the 6th and 7th interspace at the midscapular line posteriorly. The site was cleansed with chlorhexidine and draped sterilely. The site was anesthetized with 1% lidocaine without epinephrine. A Wddo-B-Yqyxjvjp catheter was inserted into the pleural space. Approximately 1600 mL of bloody sanguinous pleural fluid was removed and sent for appropriate studies. The procedure was tolerated well. Job ID: [id number]
[2018-12-27 22:36] LABS: CRP (Inflammatory) 3.96 mg/dL (= or < 0.5); Magnesium 1.5 mg/dL (1.6-2.6)
--- NOTE | 2018-12-27 22:40 | CON ---
DATE OF CONSULTATION: 12/27/2018 CONSULTING PHYSICIAN: Dr. Gao from the ER. REASON FOR CONSULTATION: Pneumonia. HISTORY OF PRESENT ILLNESS: Mr. Pedraza is a pleasant 63-year-old male, who presents to the ER with fever, cough, and shortness of breath increasing over the last 24 hours. Apparently, his fever has been up to 103. He had a CT of the chest performed in the emergency room, which demonstrated a fairly substantial right-sided pleural effusion. He had patchy alveolar densities bilaterally. I think most of it is in the right base, is probably compressive atelectasis. This patient recently had aortic valve replacement in early November. This was done because of severe aortic stenosis. He ended up coming back in mid November with symptomatic bradycardia and left bundle-branch block and required a pacemaker placement. PAST MEDICAL HISTORY: 1. Aortic stenosis. 2. Diabetes. 3. Hypertension. 4. Bladder cancer. 5. Hyperlipidemia. 6. Previous left-sided empyema, treated with decortication. PAST SURGICAL HISTORY: 1. Aortic valve replacement. 2. Pacemaker placement. 3. Bladder cancer surgery. 4. Left lung decortication. 5. Hernia repair. SOCIAL HISTORY: Drinks about 3 to 4 times a week. Does not smoke or use illicit drugs. ALLERGIES: NONE. MEDICATIONS: Prior to admission: 1. Metformin 500 mg every morning. 2. Fluoxetine 10 mg daily. 3. Aspirin 325 mg daily. 4. Atorvastatin 20 mg daily. 5. Furosemide 40 mg daily. 6. Hydrocodone/acetaminophen two pills every 4 hours as needed for pain. 7. Potassium chloride 10 mEq daily. REVIEW OF SYSTEMS: Remarkable for subjective fever, chills, chest pain, and shortness of breath. PHYSICAL EXAMINATION: VITAL SIGNS: Temperature up to 103, pulse in the 110s, respirations 18, blood pressure 130/60, O2 saturation running in the mid 90s on 40% face mask. GENERAL: The patient is a heavyset male. He is sitting up. He is actually joking around, but does appear to be in respiratory discomfort. HEENT: Pupils react. Sclerae anicteric. Oropharynx clear. NECK: Without adenopathy or JVD. CHEST: He has a large left-sided decortication scar. He has a right median sternotomy scar which is well healed. He has a pacemaker on the left chest. His lung nair show diminished breath sounds in the right base compared to the left. Dullness to percussion in the right base. CARDIAC: S1 and S2 regular without murmur. ABDOMEN: Soft, obese, nontender, and nondistended. EXTREMITIES: No clubbing, cyanosis, or edema. NEUROLOGIC: Grossly intact throughout. LABORATORY DATA: Sodium 134, potassium 3.7, chloride 97, CO2 of 27, BUN 8, creatinine 0.8, glucose 103. BNP is 110. ABG; pH 7.38, pCO2 of 38, pO2 of 58. INR 1.1. White blood cell count 14.5, hematocrit 43.8, and platelet count 313. I reviewed his CT and chest x-ray. He had a fairly substantial right-sided pleural effusion, some of this was present in November after his heart surgery, although probably not to the degree that we see it now. Question at the medial aspect of this could be loculated. The infiltrative changes are not very prominent, I think most likely he has compressive atelectasis in the right base. ASSESSMENT: 1. Sepsis syndrome. Possibly pneumonia. Also keep in mind he had recent heart surgery with aortic valve replacement. Also rule out empyema. 2. Diabetes mellitus. 3. Obesity. 4. Recent aortic valve replacement. PLAN: 1. Admit to CCU overnight given degree of hypoxemia as he has a high risk of compensating. 2. Treat with broad-spectrum IV antibiotics to include cefepime, Levaquin, and vancomycin. 3. I will go ahead and add steroids in case we are looking at some type of Lisa syndrome. 4. Enoxaparin for DVT prophylaxis. 5. Protonix for GI prophylaxis. I will inform Dr. Hanley of this patient's hospitalization since he is taking care of this patient in the past. Job ID: [id number]
[2018-12-27] MEDS ORDERED: Magnesium Sulfate 4 GM in Sodium Chloride 0.9% 250 ML 250 ML IVPB SCH (22:45)
[2018-12-27 22:48] LABS: Fluid, Triglycerides 37 mg/dL (Not Available); Pleural Fluid, Amylase Less than 30 U/L (Not Available); Pleural Fluid, Glucose 81 mg/dL; Pleural Fluid, LDH 220 U/L (Not Available); Pleural Fluid, Protein 3.5 g/dL
[2018-12-27 22:58] LABS: Body Fluid Source Thoracentesis Fluid
[2018-12-27 22:59] LABS: BF Color Red; Clarity Hazy (Clear); RBC Background Count 0.008; RBC Count-Automated 111000 /cumm; Tube # EDTA; WBC Background Count 0.01; WBC/NonHematic-Auto 1580 /cumm
[2018-12-27] MEDS ORDERED: Nitroglycerin 0.4 MG TAB (25 Tab Bottle) PO PRN (23:03)
[2018-12-27] MEDS ORDERED: Ondansetron ODT 4 MG TAB PO PRN (23:04)
[2018-12-27] MEDS ORDERED: Ondansetron PF 4 MG/2 ML Vial IVP PRN (23:04)
[2018-12-27] MEDS ORDERED: Bisacodyl 10 MG SUPP PR PRN (23:04)
[2018-12-27] MEDS ORDERED: SYSTANE 3.5 GM TUBE EA EYE PRN (23:06)
[2018-12-27] MEDS ORDERED: Insulin Regular 300 UNITS/3 ML VIAL SC PRN (23:08)
[2018-12-27] MEDS ORDERED: Dextrose 50% Abboject 50 ML SYRINGE SLOW IVP PRN (23:08)
[2018-12-27] MEDS ORDERED: Dextrose 5% in Water 1,000 ML IV PRN (23:08)
[2018-12-27 23:19] LABS: BF Segmented Neutrophils 10 %; Cell Count Non Hematic 12 %; Eosinophils 19 %; Lymphocytes 59 %
--- NOTE | 2018-12-27 23:24 | HP ---
PRIMARY CARE PHYSICIAN: Renu Crane MD CHIEF COMPLAINT: Shortness of breath. HISTORY OF PRESENT ILLNESS: The patient is a 63-year-old male with diabetes mellitus type 2 and hypertension, presented to the emergency room with above complaints. The patient recently underwent bioprosthetic aortic valve replacement for aortic stenosis. He was readmitted for symptomatic bradycardia requiring pacemaker placement. He was discharged from this facility approximately 4 weeks ago. Over the last 2 weeks or so, the patient has intermittent shortness of breath along with cough. He gets short of breath on beeowqy-eb-mhlmmzay exertion. His symptoms have been progressively getting worse. Ten days ago, he underwent a chest x-ray as outpatient that showed bilateral effusions with bibasilar atelectasis with mild vascular congestion. His symptoms got worse over the last 24 hours. He also had fever and chills. He also had chest pain, especially on deep breathing. He tried using albuterol nebulizer treatment without much relief. In the emergency room, initial vital signs showed temperature 101.7 with respirations of 32, pulse rate of 115 with blood pressure 108/60. His O2 saturation was 88% on room air. He was started on O2 supplementation. His blood gases in the emergency room showed pH of 7.38 with pCO2 38.1, pO2 of 58.2, O2 saturation 89% on 28% FiO2. Chest x-ray today showed bilateral pleural effusion and atelectasis greater on the right. He underwent a CT angiogram of the chest that showed moderate sized right pleural effusion and dense right basilar atelectasis and consolidation. He also had patchy alveolar densities in the posterior left lung base. PAST MEDICAL HISTORY: 1. Diabetes mellitus type 2. 2. Hypertension. 3. Hyperlipidemia. 4. Aortic stenosis, status post bioprosthetic aortic wall replacement on November 13, [address] Avel Reid. 5. Permanent pacemaker placement by Dr. Araujo on December 30, 2018 for symptomatic bradycardia. 6. History of bladder cancer. 7. Hypertension. 8. Hyperlipidemia. 9. Diabetes mellitus type 2. 10. Anxiety. 11. Chronic low back pain. PAST SURGICAL HISTORY: 1. Aortic valve replacement. 2. Bladder surgery. 3. Umbilical hernia repair. 4. Permanent pacemaker placement. SOCIAL HISTORY: The patient is a former smoker. Denies any drug use. Drinks alcohol socially. FAMILY HISTORY: Positive for mother with bladder cancer. Diabetes also runs in his family. CURRENT HOME MEDICATION: 1. Metformin 500 mg daily. 2. Prozac 10 mg daily. 3. Aspirin 325 mg daily. 4. Lipitor 20 mg daily. REVIEW OF SYSTEMS: The patient denies any focal neurologic deficit, nausea, vomiting, or diarrhea. All other review of systems were reviewed and were found negative. PHYSICAL EXAMINATION: VITAL SIGNS: As discussed above. GENERAL: A 63-year-old male, in qkhi-id-[id number] respiratory distress. HEENT: Head, atraumatic and normocephalic. Sclerae anicteric. Moist mucous membranes. No oral lesion. NECK: Supple. No JVD appreciated. No carotid bruit. LUNGS: Showed bilateral rhonchi with diminished air entry at bilateral bases. There is accessory muscle use. There is scattered wheezing. HEART: S1, S2 present. Tachycardic. There is systolic murmur at the left lateral sternal border. No heaves or pulsation. Well-healed midline incision from recent cardiac surgery. ABDOMEN: Soft, obese. Bowel sounds present. No rebound or guarding. No costovertebral angle tenderness. EXTREMITIES: 1+ edema in bilateral lower extremity. No calf tenderness. SKIN: Warm and dry. LYMPH NODES: No palpable lymph nodes in the neck. PERIPHERAL VASCULAR: Radial pulses palpable bilaterally. MUSCULOSKELETAL: No joint swelling or tenderness. LABORATORY DATA: CBC showed WBC 14.5, hemoglobin 13.7, hematocrit 43.8, and platelet count of 313. ABGs as discussed above. Chemistry showed sodium 134, potassium 3.7, chloride 97, bicarb 27, BUN of 8, creatinine 0.8, lactic acid 2.4. Troponin of 0.030. CRP 3.96, magnesium 1.5, phosphorus 3.0. BNP 110. Recent echocardiogram showed left ventricular ejection fraction 60% to 65% with mild tricuspid regurgitation. Chest x-ray and CT angiogram of the chest by my review as discussed above. EKG by my review showed paced rhythm. IMPRESSION: 1. Acute hypoxic respiratory failure secondary to healthcare-associated pneumonia, suspected gram-negative organism. 2. Right-sided pleural effusion. 3. Lactic acidosis secondary to sepsis. 4. Hypomagnesemia. 5. Type 2 myocardial infarction. 6. Sick sinus syndrome status post recent dual-chamber pacemaker placement. 7. Aortic stenosis status post recent aortic valve replacement (bioprosthetic). 8. Diabetes mellitus type 2. 9. Hypertension. 10. Hyperlipidemia. 11. History of bladder cancer. 12. Hyponatremia. 13. Normal coronary arteries in the past. 14. History of left bundle-branch block in the past. PLAN: The patient will be monitored in the intensive care unit. We will continue O2 supplementation. We will continue empiric antibiotics (vancomycin, cefepime, and Levaquin). IV fluids. IV steroids. Replace magnesium. Recheck labs in a.m. Incentives spirometry. Continuous pulse oximetry. Insulin sliding scale. Hold metformin. Plan of care was discussed with the patient and the family at the bedside. They stated understanding. Job ID: [id number]
[2018-12-27] MEDS: Sodium Chloride 0.9% 1,000 ML IV SCH (23:35)
[2018-12-27 23:47] VITALS: BMI 38.7
[2018-12-28] MEDS: methylPREDNISolone Sod Succ 40 MG VIAL IVP SCH ×4 (00:49→20:18)
[2018-12-28] MEDS: Acetaminophen 325 MG TAB PO PRN ×2 (00:52→15:57)
[2018-12-28 05:25] LABS: Anion Gap 14 mmol/L (10-20); BUN (Urea Nitrogen) 8 mg/dL (8.4-25.7); Calc. Creatinine Clearance 154 mL/min (70-130); Calcium 8.5 mg/dL (7.8-10.44); Carbon Dioxide 22 mmol/L (23-31); Chloride 107 mmol/L (98-107); Estimated GFR-MDRD 90; Glucose 143 mg/dL (80-115); Potassium 4.1 mmol/L (3.5-5.1); Sodium 139 mmol/L (136-145)
[2018-12-28] MEDS: Cefepime 1 GM in Sodium Chloride 0.9% 100 ML IVPB SCH ×2 (05:25→18:22)
[2018-12-28] MEDS: Insulin Regular 300 UNITS/3 ML VIAL SC PRN ×2 (05:25→16:17)
[2018-12-28 05:27] LABS: Band 15 % (5-11); Hemoglobin 12.6 g/dL (14.0-18.0); Lymphocytes 8 % (21-51); MDiff Complete? YES; Mean Corpuscular HGB CONC 31.9 g/dL (32.0-36.0); Mean Corpuscular Hemoglobin 28.6 pg (27.0-31.0); Mean Corpuscular Volume 89.7 fL (78.0-98.0); Mean Platelet Volume 8.6 fL (7.4-10.4); Monocytes 4 % (0-10); Neutrophil 70 % (42-75); Platelet Count 216 thou/uL (130-400); Platelet Morphology Comment Appears Adequate; RBC Distribution Width 14.5 % (11.5-14.5); Reactive Lymphocytes 3 % (0-10); White Blood Cell (WBC) Count 17.1 thou/uL (4.8-10.8)
--- NOTE | 2018-12-28 07:21 | RAD ---
PORTABLE AP CHEST XRAY: DATE: 12/27/2018. HISTORY: Thoracentesis. COMPARISON: 12/27/2018 at 1814 hours. FINDINGS: Median sternotomy wires and dual-lead left subclavian cardiac pacemaking device remain in place. Deyanira ear area of scarring at the lateral left lung base is again seen. Cardiac silhouette remains enlarge d. There are bibasilar pleural and parenchymal lung changes probably related to bilateral pleural ef fusions and associated atelectasis greater on the right. There does not appear to be significant int erval change when compared to the prior exam. No pneumothorax is visualized. No other interval blanca ge. IMPRESSION: Overall stable chest. No pneumothorax is appreciated on this exam. POS: MORALES
[2018-12-28] MEDS: Enoxaparin Sodium 40 MG/0.4 ML SYRINGE SC SCH ×2 (09:00→15:58)
--- NOTE | 2018-12-28 09:12 | PRG ---
DATE OF SERVICE: 12/28/2018 SUBJECTIVE: Jourdan Pedraza is a 63-year-old morbidly obese gentleman, who this morning is feeling better. He is less short of breath. He presented with cough , fever, and chills. A large volume thoracentesis was done, which appears to have 1500 WBCs. The most of the fluid was lymphocytic protein was 3.5, borderline exudate, transudate. I doubt it is parapneumonic. The patient said he was hungry this morning. OBJECTIVE: VITAL SIGNS: He sats are 100% on 3 L, pulse 76 , blood pressure 130 /60, respiratory rate 18. CHEST: Decreased breath sounds. No wheezing. CARDIAC: Normal S1 and S2. No gallops. ABDOMEN: No masses. LABORATORY DATA: His lytes are normal. Glucose 161. White count 17,000. IMPRESSION: 1. Status post cough, congestive heart failure, status post aortic valve surgery , status post pacemaker inserted. 2. Pulmonary blanchard, I doubt his effusion is infected. 3. However, continue present antibiotics. We will deescalate as soon as possible. We will follow in the ICU. PT, supportive care, nutrition, diet. Job ID: [id number] [facility]
[2018-12-28] MEDS: Famotidine 20 MG TAB PO SCH ×2 (09:18→20:18)
[2018-12-28] MEDS: Senokot S 8.6-50 MG TAB PO SCH ×2 (09:18→20:17)
[2018-12-28] MEDS: Sodium Chloride 0.9% 1,000 ML IV SCH ×2 (09:19→17:53)
[2018-12-28] MEDS: Aspirin 325 mg Enteric Coated Tablet PO SCH (09:19)
[2018-12-28] MEDS: FLUoxetine HCl 10 MG CAP PO SCH (09:21)
[2018-12-28] MEDS: Pantoprazole 40 MG VIAL IVP SCH (10:12)
--- NOTE | 2018-12-28 11:31 | PDOC.PN ---
- Subjective Encounter Start Date: 12/28/18 Encounter Start Time: 10:30 -: old records requested/rev this morning pt feels much better, has less dyspnea, no fever, has cough, denies chest pain - Objective Resuscitation Status - Order Detail: 12/27/18 23:03 Resuscitation Status Routine Resuscitation Status: FULL: Full Resuscitation MAR Reviewed: Yes Vital Signs & Weight: Vital Signs (12 hours) Temp Pulse Resp Pulse Ox 12/28/18 10:02 75 23 H 100 12/28/18 06:40 100 12/28/18 06:39 77 21 H 100 12/28/18 04:00 97.8 F 12/28/18 02:37 86 22 H 99 12/28/18 00:05 99 12/27/18 23:48 98.9 F 12/27/18 23:38 112 H 20 100 Weight Admit Weight 269 lb 10.005 oz Weight 269 lb 10.005 oz Most Recent Monitor Data Heart Rate from ECG 74 NIBP 130/69 NIBP BP-Mean 89 Respiration from ECG 31 SpO2 100 I&O: 12/27/18 12/28/18 12/29/18 06:59 06:59 06:59 Intake Total 1671 Output Total 2275 Balance -604 Result Diagrams: 12/28/18 04:23 12/28/18 04:23 Additional Labs: Accuchecks 12/28/18 05:13 POC Glucose 161 H Radiology Reviewed by me: Yes (chest xray reviewed) EKG Reviewed by me: Yes (nsr) Phys Exam - Physical Examination Constitutional: NAD HEENT: PERRLA, moist MMs, sclera anicteric Neck: no JVD, supple Respiratory: no wheezing, no rhonchi reduced air entry both base Cardiovascular: RRR, no significant murmur, no rub Gastrointestinal: soft, non-tender, no distention, positive bowel sounds obesity+ Musculoskeletal: no edema, pulses present Neurological: non-focal, normal sensation, moves all 4 limbs Lymphatic: no nodes Psychiatric: normal affect, A&O x 3 Skin: no rash, normal turgor Dx/Plan (1) Acute respiratory failure with hypoxemia Code(s): J96.01 - ACUTE RESPIRATORY FAILURE WITH HYPOXIA Status: Acute (2) Bilateral pleural effusion Code(s): J90 - PLEURAL EFFUSION, NOT ELSEWHERE CLASSIFIED Status: Acute Comment: exudative, s/p thoracentesis (3) Demand ischemia Code(s): I24.8 - OTHER FORMS OF ACUTE ISCHEMIC HEART DISEASE Status: Acute (4) Hypomagnesemia Code(s): E83.42 - HYPOMAGNESEMIA Status: Acute (5) Lactic acidosis Code(s): E87.2 - ACIDOSIS Status: Acute (6) Right lower lobe pneumonia Code(s): J18.1 - LOBAR PNEUMONIA, UNSPECIFIED ORGANISM Status: Acute (7) Severe sepsis Code(s): A41.9 - SEPSIS, UNSPECIFIED ORGANISM; R65.20 - SEVERE SEPSIS WITHOUT SEPTIC SHOCK Status: Acute (8) Anxiety and depression Code(s): F41.9 - ANXIETY DISORDER, UNSPECIFIED; F32.9 - MAJOR DEPRESSIVE DISORDER, SINGLE EPISODE, UNSPECIFIED Status: Chronic (9) Diabetes type 2, controlled Code(s): E11.9 - TYPE 2 DIABETES MELLITUS WITHOUT COMPLICATIONS Status: Chronic (10) Dyslipidemia Code(s): E78.5 - HYPERLIPIDEMIA, UNSPECIFIED Status: Chronic (11) Essential hypertension Code(s): I10 - ESSENTIAL (PRIMARY) HYPERTENSION Status: Chronic (12) H/O aortic valve replacement with porcine valve Code(s): Z95.3 - PRESENCE OF XENOGENIC HEART VALVE Status: Chronic (13) H/O aortic valve stenosis Code(s): Z86.79 - PERSONAL HISTORY OF OTHER DISEASES OF THE CIRCULATORY SYSTEM Status: Chronic (14) Obesity (BMI 30-39.9) Code(s): E66.9 - OBESITY, UNSPECIFIED Status: Chronic - Plan cont current plan of care, plan discussed w/ family, continue antibiotics * continue cefepime, levaquin and vacnomycin * follow culture * continue solumedrol as per pulmonary * medication reviewed as below * symptomatic treatment * discussed with family bedside. Review of Systems - Review of Systems ENT: negative: Ear Pain, Ear Discharge, Nose Pain, Nose Discharge, Nose Congestion, Mouth Pain, Mouth Swelling, Throat Pain, Throat Swelling, Other Respiratory: Cough, Shortness of Breath, SOB with Excertion. negative: Dry, Hemoptysis, Pleuritic Pain, Sputum, Wheezing Cardiovascular: negative: chest pain, palpitations, orthopnea, paroxysmal nocturnal dyspnea, edema, light headedness, other Gastrointestinal: negative: Nausea, Vomiting, Abdominal Pain, Diarrhea, Constipation, Melena, Hematochezia, Other Genitourinary: negative: Dysuria, Frequency, Incontinence, Hematuria, Retention , Other Musculoskeletal: negative: Neck Pain, Shoulder Pain, Arm Pain, Back Pain, Hand Pain, Leg Pain, Foot Pain, Other - Medications/Allergies Allergies/Adverse Reactions: Allergies Allergy/AdvReac Type Severity Reaction Status Date / Time No Known Allergies Allergy Verified 12/27/18 23:39 Medications: Current Medications Acetaminophen (Tylenol) 650 mg PO Q4H PRN PRN Reason: Headache/Fever/Mild Pain (1-3) Last Admin: 12/28/18 00:52 Dose: 650 mg Albuterol/Ipratropium (Duoneb) 3 ml NEB Z2CI-CC PRN PRN Reason: SOB &/or Wheezing Albuterol/Ipratropium (Duoneb) 3 ml NEB [id number] [facility] Last Admin: 12/28/18 10:02 Dose: 3 ml Aspirin (Ecotrin) 325 mg PO DAILY [facility] Last Admin: 12/28/18 09:19 Dose: 325 mg Bisacodyl (Dulcolax) 10 mg VT DAILYPRN PRN PRN Reason: Constipation Dextrose/Water (Dextrose 50%) 25 gm SLOW IVP PRN PRN PRN Reason: Hypoglycemia Enoxaparin Sodium (Lovenox) 40 mg SC 0900 [facility] Last Admin: 12/28/18 09:00 Dose: 40 mg Famotidine (Pepcid) 20 mg PO BID [facility] Last Admin: 12/28/18 09:18 Dose: 20 mg Fluoxetine HCl (Prozac) 10 mg PO DAILY [facility] Last Admin: 12/28/18 09:21 Dose: 10 mg Glucagon (Glucagon) 1 mg IM PRN PRN PRN Reason: Hypoglycemia Sodium Chloride (Normal Saline 0.9%) 1,000 mls @ 100 mls/hr IV .Q10H [facility] Last Admin: 12/28/18 09:19 Dose: 1,000 mls Ascorbic Acid 1,500 mg/ Sodium (Chloride) 53 mls @ 100 mls/hr IVPB Q6HR [facility] Stop: 12/31/18 23:59 Last Admin: 12/28/18 05:24 Dose: 53 mls Cefepime HCl 1 gm/ Sodium (Chloride) 100 mls @ 200 mls/hr IVPB 0600,1800 [facility] Last Admin: 12/28/18 05:25 Dose: 100 mls Levofloxacin 750 mg/ Device 150 mls @ 100 mls/hr IVPB 2000 [facility] Thiamine HCl 200 mg/ Sodium (Chloride) 52 mls @ 100 mls/hr IVPB Q12HR [facility] Stop: 01/01/19 09:01 Last Admin: 12/28/18 09:20 Dose: 52 mls Potassium Chloride 40 meq/ (Sodium Chloride) 270 mls @ 135 mls/hr IVPB ASDIR PRN PRN Reason: FOR SERUM K+ 2.5 - 3.5 Potassium Chloride 40 meq/ (Device) 100 mls @ 50 mls/hr IVPB ASDIR PRN PRN Reason: FOR SERUM K+ 2.5 - 3.5 Magnesium Sulfate 1 gm/ Sodium (Chloride) 102 mls @ 102 mls/hr IV PRN PRN PRN Reason: MAG LEVEL 1.4 - 2.0 Magnesium Sulfate 2 gm/ Device 50 mls @ 50 mls/hr IVPB ASDIR PRN PRN Reason: MAGNESIUM < 1.4 Potassium Phosphate 9 mmol/ (Sodium Chloride) 103 mls @ 25.75 mls/hr IVPB ASDIR PRN PRN Reason: Phosphate 1.0-1.8 Potassium Phosphate 12 mmol/ (Sodium Chloride) 254 mls @ 63.5 mls/hr IV ASDIR PRN PRN Reason: Serum phosphate 0.5-0.9 Potassium Phosphate 15 mmol/ (Sodium Chloride) 255 mls @ 63.75 mls/hr IV ASDIR PRN PRN Reason: Serum Phos < 0.5 Dextrose/Water (D5w) 1,000 mls @ 0 mls/hr IV .Q0M PRN PRN Reason: Hypoglycemia Insulin Human Regular (Humulin R) 0 units SC .MILD SLIDING SCALE PRN PRN Reason: Mild Correctional Scale Last Admin: 12/28/18 05:25 Dose: 2 unit Insulin Human Regular (Humulin R) 0 units SC .BEDTIME SLIDING SC PRN PRN Reason: Bedtime Correctional Scale Magnesium Oxide (Magnesium Oxide) 400 mg PO BIDPRN PRN PRN Reason: FOR SERUM MAG 1.4 - 2.0 Magnesium Oxide (Magnesium Oxide) 800 mg PO PRN PRN PRN Reason: FOR SERUM MAG < 1.4 Methylprednisolone Sodium Succinate (Solu-Medrol) 40 mg IVP BID [facility] Last Admin: 12/28/18 09:20 Dose: 40 mg Mineral Oil/White Petrolatum (Systane Nighttime Eye Ointment) 0 gm EA EYE PRN PRN PRN Reason: Dry Eyes Miscellaneous Medication (Phos-Nak) 1 pkt PO TIDPRN PRN PRN Reason: FOR PHOS LEVEL 1.0 - 1.8 Miscellaneous Medication (Phos-Nak) 2 pkt PO TIDPRN PRN PRN Reason: FOR PHOS LEVEL 0.5 - 1.0 Nitroglycerin (Nitrostat) 0.4 mg PO Q5MIN PRN PRN Reason: Chest Pain Ccu Electrolyte (Replacement Protocol) 0 each FS PRN PRN PRN Reason: FOR ELECTROLYTE REPLACEMENT Ondansetron HCl (Zofran Odt) 4 mg PO Q6H PRN PRN Reason: Nausea/Vomiting Ondansetron HCl (Zofran) 4 mg IVP Q6H PRN PRN Reason: Nausea/Vomiting Pantoprazole Sodium (Protonix) 40 mg IVP DAILY [facility] Last Admin: 12/28/18 10:12 Dose: 40 mg Potassium Chloride (K-Dur) 40 meq PO ASDIR PRN PRN Reason: FOR SERUM K+ 2.5 - 3.5 Potassium Chloride (Klor-Con) 40 meq PER TUBE ASDIR PRN PRN Reason: FOR SERUM K+ 2.5-3.5 Senna/Docusate Sodium (Senokot S) 1 tab PO BID [facility] Last Admin: 12/28/18 09:18 Dose: 1 tab Sodium Chloride (Flush - Normal Saline) 10 ml IVF PRN PRN PRN Reason: Saline Flush
[2018-12-28] MEDS: HYDROcodone/Acetaminophen 5/325 mg Tablet PO PRN (20:33)
--- NOTE | 2018-12-28 23:53 | CON ---
DATE OF CONSULTATION: HISTORY: Jourdan Pedraza is a 63-year-old male, followed by Dr. You. He had severe aortic stenosis on his followup in August 2018 with complaints of shortness of breath, which was [id number]-gwbzuybn and occurred with exertion. Also, with heavy exertion, he would have some chest pressure. He underwent cardiac catheterization at [facility] [place], which revealed no significant coronary artery disease. Then, on November 13, 2018, he underwent aortic valve replacement. Initially, this was planned to be a minimally invasive surgery; however, it was found that his costal cartilage had ossified and his ribs could not be better part and so this was then turned to a traditional sternotomy. Valve replacement was with a #25 Magna bioprosthetic valve. His postop course was unremarkable except he did have some bradycardia at times. It was felt that a pacemaker was not needed at that time and he was discharged on November 18. After being home, Mr. Pedraza stated that he felt just like he did prior to aortic valve replacement. He continued to have exertional dyspnea, become extremely fatigued. He went and saw his primary physician and had an EKG there, revealed episodes of 2:1 A-V block. He also has left bundle-branch block, but this was also present on the EKGs at the time of surgery and echo in the office from March 2018 also revealed that he had a wide QRS. EKG in 2012 did not reveal left bundle-branch block. After being admitted, he continued to have episodes of 2:1 A-V block. He underwent pacemaker placement with a dual-chamber pacemaker. This was an MRI compatible pacemaker. After placement of the pacemaker, while still in the hospital, he stated that his breathing dramatically improved. He was no longer "wheezing." After being home, he stated he continued to have increasing cough and shortness of breath. He had some low-grade fever and chills, but did not take his temperature. Chest x-ray revealed bilateral effusions. He was admitted. In the emergency room, temperature of 101.7, respirations of 32, pulse of 115. There is an EKG, where he has a pulse rate of 123. On room air, his O2 saturation was 88. He underwent right thoracentesis by Dr. Peterson with removal of 1600 mL of bloody sanguineous pleural fluid. At the present time, he denies any chest discomfort and states that his breathing has improved. PAST MEDICAL HISTORY: Aortic stenosis, status post aortic valve replacement; diabetes; hypertension; bladder cancer; hyperlipidemia; high-degree A-V block. PAST SURGICAL HISTORY: Aortic valve replacement, MRI compatible dual-chamber pacemaker placement, umbilical hernia repair, bladder surgery. MEDICATIONS: 1. Aspirin 325 daily. 2. Atorvastatin 20 q.h.s. 3. Fluoxetine 10 mg q.a.m. 4. Metformin 500 q.a.m. ALLERGIES: NONE. SOCIAL HISTORY: He does not smoke or drink. REVIEW OF SYSTEMS: A 10-point review of systems is unremarkable. PHYSICAL EXAMINATION: VITAL SIGNS: Blood pressure 153/72, pulse of 93. HEENT: PERRL. NECK: Supple. CHEST: Clear. CARDIAC: S1 and S2 normal without any S3 or S4. There is a 1-2/6 systolic murmur in the aortic area. ABDOMEN: Normal bowel sounds without tenderness or organomegaly. The abdomen is obese. EXTREMITIES: Reveal no clubbing, cyanosis, or edema. NEUROLOGIC: Grossly intact. SKIN: Warm and dry. LABORATORY DATA: EKG on admission revealed probable sinus tachycardia with left bundle-branch block. Subsequent EKG shows ventricular pacing. Hemoglobin 12.6, hematocrit 39.5, white count 17,100, platelets 216,000. Sodium 139, potassium 4.1, chloride 107, carbon dioxide 22, BUN 8, creatinine 0.86. Troponin I 0.030. BNP 110.9. IMPRESSION: 1. Sepsis syndrome with possible pneumonia. 2. Bilateral pleural effusions with removal of 1600 mL of bloody pleural effusion on the right. 3. Status post dual-chamber pacemaker placement for symptomatic bradycardia with 2:1 A-V block, 1 month ago. 4. Status post aortic valve replacement with bioprosthetic aortic valve. 5. Normal coronary arteries. 6. Hypertension. 7. Diabetes. 8. Hyperlipidemia. 9. Obesity. 10. Left bundle-branch block, which developed some time between 2012 and March 2018. PLAN: The patient's pacemaker be interrogated. At the present time, it seems that he is atrially sensing and ventricularly pacing. Dr. You will assume his care in the morning. Job ID: [id number]
[2018-12-29] MEDS: HYDROcodone/Acetaminophen 5/325 mg Tablet PO PRN ×4 (00:26→20:29)
[2018-12-29] MEDS: Sodium Chloride 0.9% 1,000 ML IV SCH (03:37)
[2018-12-29] MEDS: Cefepime 1 GM in Sodium Chloride 0.9% 100 ML IVPB SCH ×2 (05:32→17:57)
[2018-12-29] MEDS: Insulin Regular 300 UNITS/3 ML VIAL SC PRN (05:32)
[2018-12-29] MEDS ORDERED: Loperamide HCl 2 MG CAP PO PRN (07:32)
[2018-12-29] MEDS ORDERED: Sodium Chloride 0.65% Nasal 44 ML BOT EA NARE PRN (07:32)
[2018-12-29] MEDS ORDERED: Artificial Tears 18 DROP/0.9 ML EA EYE PRN (07:32)
[2018-12-29] MEDS ORDERED: Loratadine 10 MG TAB PO PRN (07:32)
[2018-12-29] MEDS ORDERED: Cepastat Lozenges 1 LOZ PO PRN (07:32)
[2018-12-29] MEDS ORDERED: Eucerin (Mineral Oil/Petrolatum,White) 30 gm Jar TOP PRN (07:32)
[2018-12-29] MEDS ORDERED: Zolpidem Tartrate 5 MG TAB PO PRN (07:32)
[2018-12-29] MEDS ORDERED: hydrALAZINE 20 MG/ML VIAL SLOW IVP PRN (07:32)
--- NOTE | 2018-12-29 08:15 | PRG ---
DATE OF SERVICE: 12/29/2018 SUBJECTIVE: Jourdan Pedraza is a 63-year-old gentleman. OBJECTIVE: GENERAL: He is awake, alert, responsive. VITAL SIGNS: Sats are 99% on room air, pulse 70, respiratory rate 18, blood pressure 140/65. CHEST: Decreased breath sounds. No wheezing. CARDIAC: Normal S1, S2. No gallops. ABDOMEN: No masses. IMPRESSION: His venous blood is growing Streptococcus pneumoniae, which I am surprised. IMPRESSION: 1. Right pleural effusion, probably parapneumonic. 2. Streptococcus pneumoniae sepsis. 3. Diabetes, depression, recent aortic valve surgery. No recent AV block with a pacemaker. PLAN: Continue PT, supportive care, p.o. antibiotics, can be transferred to a monitored bed. We will follow. Job ID: [id number]
[2018-12-29] MEDS: Enoxaparin Sodium 40 MG/0.4 ML SYRINGE SC SCH (09:05)
[2018-12-29] MEDS: predniSONE 20 MG TAB PO SCH (09:07)
[2018-12-29] MEDS: Aspirin 325 mg Enteric Coated Tablet PO SCH (09:07)
[2018-12-29] MEDS: FLUoxetine HCl 10 MG CAP PO SCH (09:07)
[2018-12-29] MEDS: Saccharomyces boulardii 250 MG CAP PO SCH (09:07)
[2018-12-29] MEDS: Famotidine 20 MG TAB PO SCH ×2 (09:07→20:30)
[2018-12-29] MEDS: Senokot S 8.6-50 MG TAB PO SCH ×2 (09:07→20:30)
[2018-12-29 09:10] LABS: Anion Gap 12 mmol/L (10-20); BUN (Urea Nitrogen) 11 mg/dL (8.4-25.7); Calc. Creatinine Clearance 197 mL/min (70-130); Calcium 8.6 mg/dL (7.8-10.44); Carbon Dioxide 22 mmol/L (23-31); Chloride 108 mmol/L (98-107); Estimated GFR-MDRD Greater than 90; Glucose 134 mg/dL (80-115); Magnesium 2.3 mg/dL (1.6-2.6); Potassium 3.8 mmol/L (3.5-5.1); Sodium 138 mmol/L (136-145)
[2018-12-29 09:12] LABS: Band 6 % (5-11); Hemoglobin 12.3 g/dL (14.0-18.0); Lymphocytes 1 % (21-51); MDiff Complete? YES; Mean Corpuscular HGB CONC 31.5 g/dL (32.0-36.0); Mean Corpuscular Hemoglobin 28.4 pg (27.0-31.0); Monocytes 3 % (0-10); Neutrophil 90 % (42-75); Platelet Count 245 thou/uL (130-400); Platelet Morphology Comment Appears Adequate; RBC Distribution Width 14.3 % (11.5-14.5); Red Blood Cell (RBC) Count 4.35 mill/uL (4.70-6.10); White Blood Cell (WBC) Count 18.7 thou/uL (4.8-10.8)
--- NOTE | 2018-12-29 09:23 | RAD ---
Chest one view HISTORY: Pleural fluid. Follow-up. COMPARISON: 12/27/2018. FINDINGS: Cardiac silhouette is magnified, enlarged, and partially obscured by patchy bibasilar infil trates and pleural fluid.` The pleural fluid has decreased slightly since the prior study, and bibasilar infiltrates are slightly less severe. Mediastinum is midline with postoperative changes and a dually left subclavian cardiac electronic dev ice. No evidence of pneumothorax. IMPRESSION: Slight interval radiographic improvement in appearance of pleural fluid and bibasilar inf iltrates. Other findings are stable.
--- NOTE | 2018-12-29 12:31 | PDOC.PN ---
- Subjective Encounter Start Date: 12/29/18 Encounter Start Time: 10:00 Patient seen and examined. No new complaints. No overnight events pt is doing much better - Objective Resuscitation Status - Order Detail: 12/27/18 23:03 Resuscitation Status Routine Resuscitation Status: FULL: Full Resuscitation MAR Reviewed: Yes Vital Signs & Weight: Vital Signs (12 hours) Temp Pulse Pulse Resp BP Pulse Ox Pulse Ox 12/29/18 12:00 98.0 F 12/29/18 10:18 103 H 156/81 H 88 L 12/29/18 10:12 82 21 H 97 12/29/18 08:00 100 12/29/18 07:12 78 18 100 12/29/18 07:00 98.0 F 12/29/18 04:00 98.0 F 12/29/18 02:49 93 20 100 Pulse Ox Pulse Ox 12/29/18 12:00 12/29/18 10:18 96 94 L 12/29/18 10:12 12/29/18 08:00 12/29/18 07:12 12/29/18 07:00 12/29/18 04:00 12/29/18 02:49 Weight Admit Weight 269 lb 10.005 oz Weight 272 lb 4.334 oz Most Recent Monitor Data Heart Rate from ECG 81 NIBP 124/92 NIBP BP-Mean 102 Respiration from ECG 17 SpO2 98 I&O: 12/28/18 12/29/18 12/30/18 06:59 06:59 06:59 Intake Total 1671 2799 50 Output Total 8599 5170 530 [facility] -[phone] Result Diagrams: 12/29/18 08:04 12/29/18 08:04 Additional Labs: Accuchecks 12/29/18 12/29/18 12/28/18 12:03 05:28 20:11 POC Glucose 132 H 155 H 245 H 12/28/18 16:15 POC Glucose 183 H Radiology Reviewed by me: Yes (chest xray reviewed) EKG Reviewed by me: Yes (nsr) Phys Exam - Physical Examination Constitutional: NAD HEENT: PERRLA, moist MMs, sclera anicteric Neck: no JVD, supple Respiratory: no wheezing, no rhonchi reduced air entry at base Cardiovascular: RRR, no significant murmur, no rub Gastrointestinal: soft, non-tender, no distention, positive bowel sounds Musculoskeletal: no edema, pulses present Neurological: non-focal, normal sensation, moves all 4 limbs Lymphatic: no nodes Psychiatric: normal affect, A&O x 3 Skin: no rash, normal turgor Dx/Plan (1) Acute respiratory failure with hypoxemia Code(s): J96.01 - ACUTE RESPIRATORY FAILURE WITH HYPOXIA Status: Acute (2) Bilateral pleural effusion Code(s): J90 - PLEURAL EFFUSION, NOT ELSEWHERE CLASSIFIED Status: Acute Comment: exudative, s/p thoracentesis (3) Demand ischemia Code(s): I24.8 - OTHER FORMS OF ACUTE ISCHEMIC HEART DISEASE Status: Acute (4) Hypomagnesemia Code(s): E83.42 - HYPOMAGNESEMIA Status: Acute (5) Lactic acidosis Code(s): E87.2 - ACIDOSIS Status: Acute (6) Right lower lobe pneumonia Code(s): J18.1 - LOBAR PNEUMONIA, UNSPECIFIED ORGANISM Status: Acute Comment : due to streptococcus pneumonie (7) Severe sepsis Code(s): A41.9 - SEPSIS, UNSPECIFIED ORGANISM; R65.20 - SEVERE SEPSIS WITHOUT SEPTIC SHOCK Status: Acute (8) Anxiety and depression Code(s): F41.9 - ANXIETY DISORDER, UNSPECIFIED; F32.9 - MAJOR DEPRESSIVE DISORDER, SINGLE EPISODE, UNSPECIFIED Status: Chronic (9) Diabetes type 2, controlled Code(s): E11.9 - TYPE 2 DIABETES MELLITUS WITHOUT COMPLICATIONS Status: Chronic (10) Dyslipidemia Code(s): E78.5 - HYPERLIPIDEMIA, UNSPECIFIED Status: Chronic (11) Essential hypertension Code(s): I10 - ESSENTIAL (PRIMARY) HYPERTENSION Status: Chronic (12) H/O aortic valve replacement with porcine valve Code(s): Z95.3 - PRESENCE OF XENOGENIC HEART VALVE Status: Chronic (13) H/O aortic valve stenosis Code(s): Z86.79 - PERSONAL HISTORY OF OTHER DISEASES OF THE CIRCULATORY SYSTEM Status: Chronic (14) Obesity (BMI 30-39.9) Code(s): E66.9 - OBESITY, UNSPECIFIED Status: Chronic - Plan cont current plan of care, continue antibiotics, respiratory therapy * medication reviewed as below * symptomatic treatment * transfer to [facility] * continue current IV antibiotics, IV cefepime and po levaquin * solumedrol changed to PO prednisone. Review of Systems - Review of Systems ENT: negative: Ear Pain, Ear Discharge, Nose Pain, Nose Discharge, Nose Congestion, Mouth Pain, Mouth Swelling, Throat Pain, Throat Swelling, Other Respiratory: Cough, SOB with Excertion. negative: Dry, Shortness of Breath, Hemoptysis, Pleuritic Pain, Sputum, Wheezing Cardiovascular: negative: chest pain, palpitations, orthopnea, paroxysmal nocturnal dyspnea, edema, light headedness, other Gastrointestinal: negative: Nausea, Vomiting, Abdominal Pain, Diarrhea, Constipation, Melena, Hematochezia, Other Genitourinary: negative: Dysuria, Frequency, Incontinence, Hematuria, Retention , Other Musculoskeletal: negative: Neck Pain, Shoulder Pain, Arm Pain, Back Pain, Hand Pain, Leg Pain, Foot Pain, Other Skin: negative: Rash, Lesions, Josué, Bruising, Other - Medications/Allergies Allergies/Adverse Reactions: Allergies Allergy/AdvReac Type Severity Reaction Status Date / Time No Known Allergies Allergy Verified 12/27/18 23:39 Medications: Current Medications Acetaminophen (Tylenol) 650 mg PO Q4H PRN PRN Reason: Headache/Fever/Mild Pain (1-3) Last Admin: 12/28/18 15:57 Dose: 650 mg Hydrocodone Bitart/Acetaminophen ([place] 5/325) 1 tab PO Q4H PRN PRN Reason: Moderate Pain (4-6) Last Admin: 12/29/18 09:16 Dose: 1 tab Albuterol/Ipratropium (Duoneb) 3 ml NEB [id number] PRN PRN Reason: SOB &/or Wheezing Albuterol/Ipratropium (Duoneb) 3 ml NEB [id number] [facility] Last Admin: 12/29/18 10:12 Dose: 3 ml Artificial Tears (Tears Naturale) 2 drop EA EYE PRN PRN PRN Reason: Dry Eyes Aspirin (Ecotrin) 325 mg PO DAILY [facility] Last Admin: 12/29/18 09:07 Dose: 325 mg Atorvastatin Calcium (Lipitor) 20 mg PO HS [facility] Bisacodyl (Dulcolax) 10 mg [place] DAILYPRN PRN PRN Reason: Constipation Dextrose/Water (Dextrose 50%) 25 gm SLOW IVP PRN PRN PRN Reason: Hypoglycemia Enoxaparin Sodium (Lovenox) 40 mg SC 0900 [facility] Last Admin: 12/29/18 09:05 Dose: Not Given Famotidine (Pepcid) 20 mg PO BID [facility] Last Admin: 12/29/18 09:07 Dose: 20 mg Fluoxetine HCl (Prozac) 10 mg PO DAILY [facility] Last Admin: 12/29/18 09:07 Dose: 10 mg Glucagon (Glucagon) 1 mg IM PRN PRN PRN Reason: Hypoglycemia Guaifenesin (Robitussin Sf) 200 mg PO Q4H PRN PRN Reason: Cough Hydralazine HCl (Apresoline) 10 mg SLOW IVP Q4H PRN PRN Reason: SBP > 180 and HR < 70 Cefepime HCl 1 gm/ Sodium (Chloride) 100 mls @ 200 mls/hr IVPB 0600,1800 [facility] Last Admin: 12/29/18 05:32 Dose: 100 mls Dextrose/Water (D5w) 1,000 mls @ 0 mls/hr IV .Q0M PRN PRN Reason: Hypoglycemia Insulin Human Regular (Humulin R) 0 units SC .MILD SLIDING SCALE PRN PRN Reason: Mild Correctional Scale Last Admin: 12/29/18 05:32 Dose: 2 unit Insulin Human Regular (Humulin R) 0 units SC .BEDTIME SLIDING SC PRN PRN Reason: Bedtime Correctional Scale Last Admin: 12/28/18 20:12 Dose: 2 unit Levofloxacin (Levaquin) 500 mg PO 0600 [facility] Stop: 01/04/19 06:01 Loperamide HCl (Imodium) 2 mg PO PRN PRN PRN Reason: Diarrhea/Loose Stools Loratadine (Claritin) 10 mg PO DAILYPRN PRN PRN Reason: Sinus Symptoms Mineral Oil/White Petrolatum (Systane Nighttime Eye Ointment) 0 gm EA EYE PRN PRN PRN Reason: Dry Eyes Mineral Oil/White Petrolatum (Eucerin Cream) 0 gm TOP BIDPRN PRN PRN Reason: Dry Skin Nitroglycerin (Nitrostat) 0.4 mg PO Q5MIN PRN PRN Reason: Chest Pain Ondansetron HCl (Zofran Odt) 4 mg PO Q6H PRN PRN Reason: Nausea/Vomiting Ondansetron HCl (Zofran) 4 mg IVP Q6H PRN PRN Reason: Nausea/Vomiting Prednisone (Prednisone) 20 mg PO QAM[facility] Last Admin: 12/29/18 09:07 Dose: 20 mg Saccharomyces Boulardii (Florastor) 250 mg PO DAILY [facility] Last Admin: 12/29/18 09:07 Dose: 250 mg Senna/Docusate Sodium (Senokot S) 1 tab PO BID [facility] Last Admin: 12/29/18 09:07 Dose: 1 tab Sodium Chloride (Flush - Normal Saline) 10 ml IVF PRN PRN PRN Reason: Saline Flush Sodium Chloride ([place] Nasal [place] 0.65%) 0 ml EA NARE QIDPRN PRN PRN Reason: Nasal Congestion Throat Lozenges (Cepastat Lozenges) 1 melissa PO Q2H PRN PRN Reason: Sore Throat Zolpidem Tartrate (Ambien) 5 mg PO HSPRN PRN PRN Reason: Insomnia
[2018-12-29] MEDS: Diabetic Tussin 200 MG/10 ML UDCUP PO PRN (14:00)
[2018-12-29] MEDS: Pantoprazole 40 MG VIAL IVP SCH (14:20)
--- NOTE | 2018-12-29 17:33 | PDOC.CTH ---
Cardiology Progress Note - Subjective Feels better today after thoracentesis. Pt in good spirits. (+) BC for strep pneumonia times 1 - Objective Vital Signs Temp Pulse Pulse Resp BP BP Pulse Ox 12/29/18 15:09 73 16 96 12/29/18 12:40 98.2 F 86 20 153/70 H 100 12/29/18 12:00 98.0 F 12/29/18 10:18 103 H 156/81 H 12/29/18 10:12 82 21 H 97 12/29/18 08:00 100 12/29/18 07:12 78 18 100 12/29/18 07:00 98.0 F Pulse Ox Pulse Ox Pulse Ox 12/29/18 15:09 12/29/18 12:40 12/29/18 12:00 12/29/18 10:18 88 L 96 94 L 12/29/18 10:12 12/29/18 08:00 12/29/18 07:12 12/29/18 07:00 Admit Weight 269 lb 10.005 oz Weight 272 lb 4.334 oz 12/28/18 12/29/18 12/30/18 06:59 06:59 06:59 Intake Total 1671 2799 709 Output Total 2275 6795 530 Balance -604 -627 179 - Physical Examination General/Neuro: alert & oriented x3, NAD Neck: no JVD present Lungs: unlabored respirations Heart: RRR Abdomen: NT/ND, soft Extremities: + femoral B - Telemetry Telemetry Rhythm: SR - Labs Result Diagrams: 12/29/18 08:04 12/29/18 08:04 Troponin/CKMB Troponin I 0.030 ng/mL (< 0.028) H 12/27/18 22:08 - Assessment/Plan Parapneumonic pneumonia s/p pacer s/p AVR Abx IS Rehab tele monitoring ambualtion
[2018-12-29] MEDS: Atorvastatin Calcium 20 MG TAB PO SCH (20:29)
[2018-12-30 05:39] LABS: #Basophils 0.2 thou/uL (0.0-0.2); #Eosinphils 0.1 thou/uL (0.0-0.7); #Lymphocytes 1.1 thou/uL (1.20-3.40); #Monocytes 0.7 thou/uL (0.11-0.59); #Neutrophils 11.2 thou/uL (1.40-6.50); %Basophils 1.5 % (0.0-1.0); %Eosinophils 0.4 % (0.0-10.0); %Lymphocytes 8.5 % (21.0-51.0); %Monocytes 5.3 % (0.0-10.0); %Neutrophils 84.4 % (42.0-75.0); Hemoglobin 11.7 g/dL (14.0-18.0); Mean Corpuscular HGB CONC 31.5 g/dL (32.0-36.0); Mean Corpuscular Hemoglobin 28.3 pg (27.0-31.0); Mean Corpuscular Volume 89.7 fL (78.0-98.0); Mean Platelet Volume 8.2 fL (7.4-10.4); Platelet Count 262 thou/uL (130-400); RBC Distribution Width 14.2 % (11.5-14.5); Red Blood Cell (RBC) Count 4.13 mill/uL (4.70-6.10); White Blood Cell (WBC) Count 13.3 thou/uL (4.8-10.8)
[2018-12-30] MEDS: HYDROcodone/Acetaminophen 5/325 mg Tablet PO PRN ×3 (05:47→22:14)
[2018-12-30] MEDS: Cefepime 1 GM in Sodium Chloride 0.9% 100 ML IVPB SCH (05:48)
[2018-12-30 05:57] LABS: Anion Gap 10 mmol/L (10-20); BUN (Urea Nitrogen) 9 mg/dL (8.4-25.7); Calc. Creatinine Clearance 206 mL/min (70-130); Calcium 8.3 mg/dL (7.8-10.44); Carbon Dioxide 26 mmol/L (23-31); Chloride 108 mmol/L (98-107); Estimated GFR-MDRD Greater than 90; Glucose 108 mg/dL (80-115); Potassium 3.4 mmol/L (3.5-5.1); Sodium 141 mmol/L (136-145)
--- NOTE | 2018-12-30 06:18 | PDOC.CTH ---
Cardiology Progress Note - Subjective Feels good overall. On maxipime - Objective Vital Signs Temp Pulse Resp BP BP Pulse Ox 12/30/18 04:00 98.5 F 81 20 166/76 H 97 12/30/18 03:47 81 12 12/29/18 22:01 85 16 12/29/18 20:14 100 12/29/18 19:44 98.6 F 86 16 137/63 100 12/29/18 19:09 78 16 Admit Weight 269 lb 10.005 oz Weight 272 lb 4.334 oz 12/28/18 12/29/18 12/30/18 06:59 06:59 06:59 Intake Total 1671 2799 709 Output Total 7685 1335 530 Balance -604 -376 179 - Physical Examination General/Neuro: alert & oriented x3, NAD Neck: carotid US brisk, no JVD present Lungs: CTA, unlabored respirations Heart: PMI normal, RRR Abdomen: NT/ND, soft Extremities: + femoral B - Telemetry Telemetry Rhythm: RRR - Labs Result Diagrams: 12/30/18 05:08 12/30/18 05:08 Troponin/CKMB Troponin I 0.030 ng/mL (< 0.028) H 12/27/18 22:08 - Assessment/Plan Strep pneumo pneumonia s/p pacer s/p AVR REC 12/30 Doing well Abx Ambulation CV status stable. Will sign off and fu in office. Re-consult if needed REC 12/29 Vancomycin IV Increase risk of infection to pacer or AV. PT and IS Ambulate
[2018-12-30] MEDS ORDERED: Potassium Chloride 20 MEQ TAB PO SCH (08:00)
[2018-12-30] MEDS ORDERED: Aspirin 325 mg Enteric Coated Tablet ONE (08:30)
[2018-12-30] MEDS: Senokot S 8.6-50 MG TAB PO SCH ×2 (08:41→22:09)
[2018-12-30] MEDS: Famotidine 20 MG TAB PO SCH ×2 (08:41→22:09)
[2018-12-30] MEDS: Aspirin 325 mg Enteric Coated Tablet PO SCH (08:41)
[2018-12-30] MEDS: FLUoxetine HCl 10 MG CAP PO SCH (08:42)
[2018-12-30] MEDS: Saccharomyces boulardii 250 MG CAP PO SCH (08:42)
[2018-12-30] MEDS: predniSONE 20 MG TAB PO SCH (08:42)
--- NOTE | 2018-12-30 09:39 | PRG ---
DATE OF SERVICE: 12/30/2018 SUBJECTIVE: This morning, he is feeling better. He is less short of breath. OBJECTIVE: VITAL SIGNS: Saturations are 90% on room air, temperature 98, pulse 71, respiratory rate 20, and blood pressure is 166/76. CHEST: Bilateral crackles. No wheezing. CARDIAC: Normal S1 and S2. No gallops. ABDOMEN: No masses. LABORATORY DATA: White count 13,000, H and H are 11 and 33, and platelet count is normal. Lytes are normal. Blood cultures, Streptococcus pneumonia. IMAGING STUDIES: X-ray shows improvement in the bilateral pleural effusion. Cytology was negative. Echo result still pending. IMPRESSION: 1. Right pleural effusion postop consistent with mainly lymphocytic fluid. I doubt it is parapneumonic. 2. Strep sepsis. PLAN: Discontinue Maxipime. Continue Levaquin. He is stable to be discharged home tomorrow on oral antibiotics for 5 more days. We will follow. Job ID: [id number]
[2018-12-30] MEDS: Enoxaparin Sodium 40 MG/0.4 ML SYRINGE SC SCH (11:05)
--- NOTE | 2018-12-30 11:19 | PDOC.PN ---
- Subjective Encounter Start Date: 12/30/18 Encounter Start Time: 07:45 pt continue to do better, on room air, has less cough and less dyspnea, no fever - Objective Resuscitation Status - Order Detail: 12/27/18 23:03 Resuscitation Status Routine Resuscitation Status: FULL: Full Resuscitation MAR Reviewed: Yes Vital Signs & Weight: Vital Signs (12 hours) Temp Pulse Resp BP BP Pulse Ox 12/30/18 10:40 77 16 98 12/30/18 08:00 97.9 F 95 18 146/68 H 97 12/30/18 06:50 96 12/30/18 06:49 87 16 96 12/30/18 04:00 98.5 F 81 20 166/76 H 97 12/30/18 03:47 81 12 Weight Admit Weight 269 lb 10.005 oz Weight 272 lb 4.334 oz Most Recent Monitor Data Heart Rate from ECG 81 NIBP 124/92 NIBP BP-Mean 102 Respiration from ECG 17 SpO2 98 I&O: 12/29/18 12/30/18 12/31/18 06:59 06:59 06:59 Intake Total 2799 1409 Output Total 3175 1980 Balance -376 571 Result Diagrams: 12/30/18 05:08 12/30/18 05:08 Additional Labs: Accuchecks 12/29/18 12/29/18 12/29/18 20:30 16:09 12:03 POC Glucose 190 H 182 H 132 H EKG Reviewed by me: Yes (nsr) Phys Exam - Physical Examination Constitutional: NAD HEENT: PERRLA, moist MMs, sclera anicteric Neck: no JVD, supple Respiratory: no wheezing, no rales, no rhonchi reduced basal air entry Cardiovascular: RRR, no significant murmur, no rub Gastrointestinal: soft, non-tender, no distention, positive bowel sounds Musculoskeletal: no edema, pulses present Neurological: non-focal, normal sensation, moves all 4 limbs Lymphatic: no nodes Psychiatric: normal affect, A&O x 3 Skin: no rash, normal turgor Dx/Plan (1) Acute respiratory failure with hypoxemia Code(s): J96.01 - ACUTE RESPIRATORY FAILURE WITH HYPOXIA Status: Resolved (2) Bilateral pleural effusion Code(s): J90 - PLEURAL EFFUSION, NOT ELSEWHERE CLASSIFIED Status: Acute Comment: exudative, s/p thoracentesis (3) Demand ischemia Code(s): I24.8 - OTHER FORMS OF ACUTE ISCHEMIC HEART DISEASE Status: Acute (4) Hypomagnesemia Code(s): E83.42 - HYPOMAGNESEMIA Status: Resolved (5) Lactic acidosis Code(s): E87.2 - ACIDOSIS Status: Resolved (6) Right lower lobe pneumonia Code(s): J18.1 - LOBAR PNEUMONIA, UNSPECIFIED ORGANISM Status: Acute Comment : due to streptococcus pneumonie (7) Severe sepsis Code(s): A41.9 - SEPSIS, UNSPECIFIED ORGANISM; R65.20 - SEVERE SEPSIS WITHOUT SEPTIC SHOCK Status: Acute (8) Anxiety and depression Code(s): F41.9 - ANXIETY DISORDER, UNSPECIFIED; F32.9 - MAJOR DEPRESSIVE DISORDER, SINGLE EPISODE, UNSPECIFIED Status: Chronic (9) Diabetes type 2, controlled Code(s): E11.9 - TYPE 2 DIABETES MELLITUS WITHOUT COMPLICATIONS Status: Chronic (10) Dyslipidemia Code(s): E78.5 - HYPERLIPIDEMIA, UNSPECIFIED Status: Chronic (11) Essential hypertension Code(s): I10 - ESSENTIAL (PRIMARY) HYPERTENSION Status: Chronic (12) H/O aortic valve replacement with porcine valve Code(s): Z95.3 - PRESENCE OF XENOGENIC HEART VALVE Status: Chronic (13) H/O aortic valve stenosis Code(s): Z86.79 - PERSONAL HISTORY OF OTHER DISEASES OF THE CIRCULATORY SYSTEM Status: Chronic (14) Obesity (BMI 30-39.9) Code(s): E66.9 - OBESITY, UNSPECIFIED Status: Chronic - Plan cont current plan of care, continue antibiotics * continue levaquin * continue to monitor today * expecting discharge tomorrow if stable * medication reviewed as below * symptomatic treatment. Review of Systems - Review of Systems ENT: negative: Ear Pain, Ear Discharge, Nose Pain, Nose Discharge, Nose Congestion, Mouth Pain, Mouth Swelling, Throat Pain, Throat Swelling, Other Respiratory: Cough, SOB with Excertion. negative: Dry, Shortness of Breath, Hemoptysis, Pleuritic Pain, Sputum, Wheezing Cardiovascular: negative: chest pain, palpitations, orthopnea, paroxysmal nocturnal dyspnea, edema, light headedness, other Gastrointestinal: negative: Nausea, Vomiting, Abdominal Pain, Diarrhea, Constipation, Melena, Hematochezia, Other Genitourinary: negative: Dysuria, Frequency, Incontinence, Hematuria, Retention , Other Musculoskeletal: negative: Neck Pain, Shoulder Pain, Arm Pain, Back Pain, Hand Pain, Leg Pain, Foot Pain, Other Skin: negative: Rash, Lesions, Josué, Bruising, Other - Medications/Allergies Allergies/Adverse Reactions: Allergies Allergy/AdvReac Type Severity Reaction Status Date / Time No Known Allergies Allergy Verified 12/27/18 23:39 Medications: Current Medications Acetaminophen (Tylenol) 650 mg PO Q4H PRN PRN Reason: Headache/Fever/Mild Pain (1-3) Last Admin: 12/28/18 15:57 Dose: 650 mg Hydrocodone Bitart/Acetaminophen ([place] 5/325) 1 tab PO Q4H PRN PRN Reason: Moderate Pain (4-6) Last Admin: 12/30/18 05:47 Dose: 1 tab Albuterol/Ipratropium (Duoneb) 3 ml NEB [id number] PRN PRN Reason: SOB &/or Wheezing Albuterol/Ipratropium (Duoneb) 3 ml NEB [id number] [facility] Last Admin: 12/30/18 10:40 Dose: 3 ml Artificial Tears (Tears Naturale) 2 drop EA EYE PRN PRN PRN Reason: Dry Eyes Aspirin (Ecotrin) 325 mg PO DAILY [facility] Last Admin: 12/30/18 08:41 Dose: 325 mg Atorvastatin Calcium (Lipitor) 20 mg PO HS [facility] Last Admin: 12/29/18 20:29 Dose: 20 mg Bisacodyl (Dulcolax) 10 mg [place] DAILYPRN PRN PRN Reason: Constipation Dextrose/Water (Dextrose 50%) 25 gm SLOW IVP PRN PRN PRN Reason: Hypoglycemia Enoxaparin Sodium (Lovenox) 40 mg SC 0900 [facility] Last Admin: 12/30/18 11:05 Dose: 40 mg Famotidine (Pepcid) 20 mg PO BID [facility] Last Admin: 12/30/18 08:41 Dose: 20 mg Fluoxetine HCl (Prozac) 10 mg PO DAILY [facility] Last Admin: 12/30/18 08:42 Dose: 10 mg Glucagon (Glucagon) 1 mg IM PRN PRN PRN Reason: Hypoglycemia Guaifenesin (Robitussin Sf) 200 mg PO Q4H PRN PRN Reason: Cough Last Admin: 12/29/18 14:00 Dose: 200 mg Hydralazine HCl (Apresoline) 10 mg SLOW IVP Q4H PRN PRN Reason: SBP > 180 and HR < 70 Dextrose/Water (D5w) 1,000 mls @ 0 mls/hr IV .Q0M PRN PRN Reason: Hypoglycemia Insulin Human Regular (Humulin R) 0 units SC .MILD SLIDING SCALE PRN PRN Reason: Mild Correctional Scale Last Admin: 12/29/18 05:32 Dose: 2 unit Insulin Human Regular (Humulin R) 0 units SC .BEDTIME SLIDING SC PRN PRN Reason: Bedtime Correctional Scale Last Admin: 12/28/18 20:12 Dose: 2 unit Levofloxacin (Levaquin) 500 mg PO 0600 [facility] Stop: 01/04/19 06:01 Last Admin: 12/30/18 05:48 Dose: 500 mg Loperamide HCl (Imodium) 2 mg PO PRN PRN PRN Reason: Diarrhea/Loose Stools Loratadine (Claritin) 10 mg PO DAILYPRN PRN PRN Reason: Sinus Symptoms Mineral Oil/White Petrolatum (Systane Nighttime Eye Ointment) 0 gm EA EYE PRN PRN PRN Reason: Dry Eyes Mineral Oil/White Petrolatum (Eucerin Cream) 0 gm TOP BIDPRN PRN PRN Reason: Dry Skin Nitroglycerin (Nitrostat) 0.4 mg PO Q5MIN PRN PRN Reason: Chest Pain Ondansetron HCl (Zofran Odt) 4 mg PO Q6H PRN PRN Reason: Nausea/Vomiting Ondansetron HCl (Zofran) 4 mg IVP Q6H PRN PRN Reason: Nausea/Vomiting Prednisone (Prednisone) 20 mg PO QA[facility] Last Admin: 12/30/18 08:42 Dose: 20 mg Saccharomyces Boulardii (Florastor) 250 mg PO DAILY [facility] Last Admin: 12/30/18 08:42 Dose: 250 mg Senna/Docusate Sodium (Senokot S) 1 tab PO BID [facility] Last Admin: 12/30/18 08:41 Dose: 1 tab Sodium Chloride (Flush - Normal Saline) 10 ml IVF PRN PRN PRN Reason: Saline Flush Sodium Chloride ([place] Nasal [place] 0.65%) 0 ml EA NARE QIDPRN PRN PRN Reason: Nasal Congestion Throat Lozenges (Cepastat Lozenges) 1 melissa PO Q2H PRN PRN Reason: Sore Throat Zolpidem Tartrate (Ambien) 5 mg PO HSPRN PRN PRN Reason: Insomnia
[2018-12-30] MEDS: Atorvastatin Calcium 20 MG TAB PO SCH (22:08)
[2018-12-30] MEDS: Diabetic Tussin 200 MG/10 ML UDCUP PO PRN (22:15)
[2018-12-31 07:10] LABS: #Eosinphils 0.4 thou/uL (0.0-0.7); #Lymphocytes 1.7 thou/uL (1.20-3.40); #Monocytes 0.7 thou/uL (0.11-0.59); #Neutrophils 5.5 thou/uL (1.40-6.50); %Basophils 0.1 % (0.0-1.0); %Eosinophils 4.9 % (0.0-10.0); %Lymphocytes 20.8 % (21.0-51.0); %Monocytes 8.1 % (0.0-10.0); %Neutrophils 66.1 % (42.0-75.0); Hemoglobin 12.9 g/dL (14.0-18.0); Mean Corpuscular HGB CONC 32.2 g/dL (32.0-36.0); Mean Corpuscular Hemoglobin 28.7 pg (27.0-31.0); Mean Corpuscular Volume 89.1 fL (78.0-98.0); Mean Platelet Volume 8.2 fL (7.4-10.4); Platelet Count 259 thou/uL (130-400); RBC Distribution Width 14.4 % (11.5-14.5); Red Blood Cell (RBC) Count 4.48 mill/uL (4.70-6.10); White Blood Cell (WBC) Count 8.3 thou/uL (4.8-10.8)
[2018-12-31 07:18] LABS: Anion Gap 12 mmol/L (10-20); BUN (Urea Nitrogen) 8 mg/dL (8.4-25.7); Calc. Creatinine Clearance 195 mL/min (70-130); Calcium 8.7 mg/dL (7.8-10.44); Carbon Dioxide 26 mmol/L (23-31); Chloride 104 mmol/L (98-107); Estimated GFR-MDRD Greater than 90; Glucose 89 mg/dL (80-115); Potassium 3.3 mmol/L (3.5-5.1); Sodium 139 mmol/L (136-145)
[2018-12-31] MEDS ORDERED: Potassium Chloride 20 MEQ TAB PO SCH (07:30)
[2018-12-31] MEDS: Senokot S 8.6-50 MG TAB PO SCH (08:56)
[2018-12-31] MEDS: FLUoxetine HCl 10 MG CAP PO SCH (08:56)
[2018-12-31] MEDS: Aspirin 325 mg Enteric Coated Tablet PO SCH (08:56)
[2018-12-31] MEDS: Saccharomyces boulardii 250 MG CAP PO SCH (08:56)
[2018-12-31] MEDS: Famotidine 20 MG TAB PO SCH (08:56)
[2018-12-31] MEDS: predniSONE 20 MG TAB PO SCH (08:57)
--- NOTE | 2018-12-31 09:46 | PRG ---
DATE OF SERVICE: 12/31/2018 OBJECTIVE: VITAL SIGNS: This morning, his temperature is 98, pulse 77, respiratory rate 20, saturations 94% on room air, blood pressure 133/66. GENERAL: He denies any pain, discomfort, or shortness of breath. CHEST: Decreased breath sounds. Minimal rhonchi, crackles. CARDIAC: Normal S1, S2. No gallops. ABDOMEN: No masses. LABORATORY DATA: Labs unremarkable. Lytes are normal. ASSESSMENT: 1. Streptococcal sepsis. 2. Right pleural effusion postsurgery. I doubt it is parapneumonic. 3. Status post aortic valve replacement. 4. Diabetes. 5. Obesity. 6. probablle sleep apnea. PLAN: Pulmonary blanchard stable enough to be discharged home on his present antibiotic coverage. He can see in the office in several weeks. Job ID: [id number]
--- NOTE | 2018-12-31 09:54 | PDOC.PN ---
- Subjective Encounter Start Date: 12/31/18 Encounter Start Time: 07:40 Patient seen and examined. No new complaints. No overnight events - Objective Resuscitation Status - Order Detail: 12/27/18 23:03 Resuscitation Status Routine Resuscitation Status: FULL: Full Resuscitation MAR Reviewed: Yes Vital Signs & Weight: Vital Signs (12 hours) Temp Pulse Resp BP BP Pulse Ox 12/31/18 08:20 98 F 87 20 133/66 93 L 12/31/18 06:16 72 16 98 12/31/18 03:50 97.9 F 70 16 154/81 H 96 12/31/18 01:30 67 16 12/30/18 23:30 69 134/65 Weight Admit Weight 269 lb 10.005 oz Weight 269 lb 5 oz Most Recent Monitor Data Heart Rate from ECG 81 NIBP 124/92 NIBP BP-Mean 102 Respiration from ECG 17 SpO2 98 I&O: 12/30/18 12/31/18 01/01/19 06:59 06:59 06:59 Intake Total 1409 2090 Output Total 1980 4200 Balance -571 2110 Result Diagrams: 12/31/18 06:37 12/31/18 06:37 Additional Labs: Accuchecks 12/31/18 12/30/18 12/30/18 05:23 20:44 16:53 POC Glucose 93 152 H 115 H 12/30/18 12/30/18 11:12 05:49 POC Glucose 105 103 EKG Reviewed by me: Yes Phys Exam - Physical Examination Constitutional: NAD HEENT: PERRLA, moist MMs, sclera anicteric Neck: no JVD, supple Respiratory: no wheezing, no rales, no rhonchi Cardiovascular: RRR, no significant murmur, no rub Gastrointestinal: soft, non-tender, no distention, positive bowel sounds Musculoskeletal: no edema, pulses present Neurological: non-focal, normal sensation, moves all 4 limbs Lymphatic: no nodes Psychiatric: normal affect, A&O x 3 Skin: no rash, normal turgor Dx/Plan (1) Acute respiratory failure with hypoxemia Code(s): J96.01 - ACUTE RESPIRATORY FAILURE WITH HYPOXIA Status: Resolved (2) Bilateral pleural effusion Code(s): J90 - PLEURAL EFFUSION, NOT ELSEWHERE CLASSIFIED Status: Acute Comment: exudative, s/p thoracentesis (3) Demand ischemia Code(s): I24.8 - OTHER FORMS OF ACUTE ISCHEMIC HEART DISEASE Status: Acute (4) Hypomagnesemia Code(s): E83.42 - HYPOMAGNESEMIA Status: Resolved (5) Lactic acidosis Code(s): E87.2 - ACIDOSIS Status: Resolved (6) Right lower lobe pneumonia Code(s): J18.1 - LOBAR PNEUMONIA, UNSPECIFIED ORGANISM Status: Acute Comment : due to streptococcus pneumonie (7) Severe sepsis Code(s): A41.9 - SEPSIS, UNSPECIFIED ORGANISM; R65.20 - SEVERE SEPSIS WITHOUT SEPTIC SHOCK Status: Acute (8) Anxiety and depression Code(s): F41.9 - ANXIETY DISORDER, UNSPECIFIED; F32.9 - MAJOR DEPRESSIVE DISORDER, SINGLE EPISODE, UNSPECIFIED Status: Chronic (9) Diabetes type 2, controlled Code(s): E11.9 - TYPE 2 DIABETES MELLITUS WITHOUT COMPLICATIONS Status: Chronic (10) Dyslipidemia Code(s): E78.5 - HYPERLIPIDEMIA, UNSPECIFIED Status: Chronic (11) Essential hypertension Code(s): I10 - ESSENTIAL (PRIMARY) HYPERTENSION Status: Chronic (12) H/O aortic valve replacement with porcine valve Code(s): Z95.3 - PRESENCE OF XENOGENIC HEART VALVE Status: Chronic (13) H/O aortic valve stenosis Code(s): Z86.79 - PERSONAL HISTORY OF OTHER DISEASES OF THE CIRCULATORY SYSTEM Status: Chronic (14) Obesity (BMI 30-39.9) Code(s): E66.9 - OBESITY, UNSPECIFIED Status: Chronic - Plan cont current plan of care, continue antibiotics * medication reviewed as below * symptomatic treatment * see discharge natasha. Review of Systems - Review of Systems ENT: negative: Ear Pain, Ear Discharge, Nose Pain, Nose Discharge, Nose Congestion, Mouth Pain, Mouth Swelling, Throat Pain, Throat Swelling, Other Respiratory: negative: Cough, Dry, Shortness of Breath, Hemoptysis, SOB with Excertion, Pleuritic Pain, Sputum, Wheezing Cardiovascular: negative: chest pain, palpitations, orthopnea, paroxysmal nocturnal dyspnea, edema, light headedness, other Gastrointestinal: negative: Nausea, Vomiting, Abdominal Pain, Diarrhea, Constipation, Melena, Hematochezia, Other Genitourinary: negative: Dysuria, Frequency, Incontinence, Hematuria, Retention , Other Musculoskeletal: negative: Neck Pain, Shoulder Pain, Arm Pain, Back Pain, Hand Pain, Leg Pain, Foot Pain, Other Skin: negative: Rash, Lesions, Josué, Bruising, Other - Medications/Allergies Allergies/Adverse Reactions: Allergies Allergy/AdvReac Type Severity Reaction Status Date / Time No Known Allergies Allergy Verified 12/27/18 23:39 Medications: Current Medications Acetaminophen (Tylenol) 650 mg PO Q4H PRN PRN Reason: Headache/Fever/Mild Pain (1-3) Last Admin: 12/28/18 15:57 Dose: 650 mg Hydrocodone Bitart/Acetaminophen ([place] 5/325) 1 tab PO Q4H PRN PRN Reason: Moderate Pain (4-6) Last Admin: 12/30/18 22:14 Dose: 1 tab Albuterol/Ipratropium (Duoneb) 3 ml NEB [id number] PRN PRN Reason: SOB &/or Wheezing Albuterol/Ipratropium (Duoneb) 3 ml NEB [id number] [facility] Last Admin: 12/31/18 06:16 Dose: 3 ml Artificial Tears (Tears Naturale) 2 drop EA EYE PRN PRN PRN Reason: Dry Eyes Aspirin (Ecotrin) 325 mg PO DAILY [facility] Last Admin: 12/31/18 08:56 Dose: 325 mg Atorvastatin Calcium (Lipitor) 20 mg PO HS [facility] Last Admin: 12/30/18 22:08 Dose: 20 mg Bisacodyl (Dulcolax) 10 mg MI DAILYPRN PRN PRN Reason: Constipation Dextrose/Water (Dextrose 50%) 25 gm SLOW IVP PRN PRN PRN Reason: Hypoglycemia Enoxaparin Sodium (Lovenox) 40 mg SC 0900 [facility] Last Admin: 12/30/18 11:05 Dose: 40 mg Famotidine (Pepcid) 20 mg PO BID [facility] Last Admin: 12/31/18 08:56 Dose: 20 mg Fluoxetine HCl (Prozac) 10 mg PO DAILY [facility] Last Admin: 12/31/18 08:56 Dose: 10 mg Glucagon (Glucagon) 1 mg IM PRN PRN PRN Reason: Hypoglycemia Guaifenesin (Robitussin Sf) 200 mg PO Q4H PRN PRN Reason: Cough Last Admin: 12/30/18 22:15 Dose: 200 mg Hydralazine HCl (Apresoline) 10 mg SLOW IVP Q4H PRN PRN Reason: SBP > 180 and HR < 70 Dextrose/Water (D5w) 1,000 mls @ 0 mls/hr IV .Q0M PRN PRN Reason: Hypoglycemia Insulin Human Regular (Humulin R) 0 units SC .MILD SLIDING SCALE PRN PRN Reason: Mild Correctional Scale Last Admin: 12/29/18 05:32 Dose: 2 unit Insulin Human Regular (Humulin R) 0 units SC .BEDTIME SLIDING SC PRN PRN Reason: Bedtime Correctional Scale Last Admin: 12/28/18 20:12 Dose: 2 unit Levofloxacin (Levaquin) 500 mg PO 0600 [facility] Stop: 01/04/19 06:01 Last Admin: 12/31/18 05:30 Dose: 500 mg Loperamide HCl (Imodium) 2 mg PO PRN PRN PRN Reason: Diarrhea/Loose Stools Loratadine (Claritin) 10 mg PO DAILYPRN PRN PRN Reason: Sinus Symptoms Mineral Oil/White Petrolatum (Systane Nighttime Eye Ointment) 0 gm EA EYE PRN PRN PRN Reason: Dry Eyes Mineral Oil/White Petrolatum (Eucerin Cream) 0 gm TOP BIDPRN PRN PRN Reason: Dry Skin Nitroglycerin (Nitrostat) 0.4 mg PO Q5MIN PRN PRN Reason: Chest Pain Ondansetron HCl (Zofran Odt) 4 mg PO Q6H PRN PRN Reason: Nausea/Vomiting Ondansetron HCl (Zofran) 4 mg IVP Q6H PRN PRN Reason: Nausea/Vomiting Prednisone (Prednisone) 20 mg PO QAM-WM [facility] Last Admin: 12/31/18 08:57 Dose: 20 mg Saccharomyces Boulardii (Florastor) 250 mg PO DAILY [facility] Last Admin: 12/31/18 08:56 Dose: 250 mg Senna/Docusate Sodium (Senokot S) 1 tab PO BID [facility] Last Admin: 12/31/18 08:56 Dose: 1 tab Sodium Chloride (Flush - Normal Saline) 10 ml IVF PRN PRN PRN Reason: Saline Flush Sodium Chloride ([place] Nasal [place] 0.65%) 0 ml EA NARE QIDPRN PRN PRN Reason: Nasal Congestion Throat Lozenges (Cepastat Lozenges) 1 melissa PO Q2H PRN PRN Reason: Sore Throat Zolpidem Tartrate (Ambien) 5 mg PO HSPRN PRN PRN Reason: Insomnia
[2018-12-31] MEDS: Enoxaparin Sodium 40 MG/0.4 ML SYRINGE SC SCH (10:33)
--- NOTE | 2018-12-31 11:11 | DIS ---
DATE OF ADMISSION: 12/27/2018 DATE OF DISCHARGE: 12/31/2018 PRIMARY CARE PHYSICIAN: Dr. Renu Crane. DISCHARGE DISPOSITION: Home. PRIMARY DISCHARGE DIAGNOSES: 1. Bilateral pneumonia due to Streptococcus pneumoniae. 2. Bacteremia due to Streptococcus pneumoniae, bilateral pleural effusion status post thoracentesis. 3. Suspected parapneumonic effusion. 4. Demand ischemia due to type 2 myocardial infarction, non-ST elevation. 5. Hypokalemia. 6. Severe sepsis, resolved. 7. Right lower lobe pneumonia due to Streptococcus. 8. Lactic acidosis, resolved. 9. Hypomagnesemia, resolved. 10. Acute respiratory failure with hypoxia resolved. SECONDARY DISCHARGE DIAGNOSES: 1. Obesity with body mass index of 38. 2. History of aortic wall stenosis and aortic wall replacement with porcine valve. 3. Hypertension. 4. Dyslipidemia. 5. Diabetes type 2. 6. Anxiety and depression. PRIMARY PROCEDURE/OPERATION: Thoracentesis was performed by Pulmonary group. RADIOLOGICAL INVESTIGATION: Chest x-ray showed bilateral pleural effusion with atelectasis with consolidation on the right side. CT angiography showed pleural effusion with consolidation on the right side. Repeat chest x-ray. SIGNIFICANT LABORATORY DATA: Hemoglobin 12.9, INR 1.1, creatinine 0.68, potassium 3.3. Urinalysis unremarkable. Pleural fluid WBC count 1580. Blood culture showed Streptococcus pneumoniae. Pleural fluid culture negative. Urine culture negative. DISCHARGE MEDICATIONS: 1. Levaquin 500 mg p.o. daily for 10 days and follow up with automobile service station mechanic. 2. Lipitor 20 mg p.o. at bedtime. 3. Metformin 500 mg daily. 4. Prozac 10 mg daily. 5. Aspirin 325 mg p.o. daily. 6. Florastor 250 mg p.o. daily for 10 days. 7. Prednisone 20 mg p.o. daily for 10 days. CONTRAINDICATION: None. CODE STATUS: Full code. INPATIENT ER MEDICAL TECHNICIAN: Cardiology group was following while in hospital. Dr. Peterson and Dr. Hanley were following while in hospital. TEST RESULTS PENDING ON DISCHARGE: None. ALLERGIES: NO KNOWN DRUG ALLERGIES. DISCHARGE PLAN: Posthospital, the patient has appointment with primary care physician on January 06, 2019, at 8:45 a.m. The patient has appointment with Dr. You on January 25, 2019, at 10:30 a.m. The patient has appointment with Dr. Hanley on January 25, 2019, at 1:00 p.m. HOSPITAL COURSE: A 63-year-old male with above-mentioned medical problem who was admitted by Dr. Cosme Arreguin. Please see his H and P for further details. The patient was having increasing shortness of breath, cough and fever. He was diagnosed with pneumonia as well as bilateral pleural effusion more on the right side. He required thoracentesis and his pleural fluid was exudative and consistent with parapneumonic effusion. The patient was treated with broad-spectrum antibiotic therapy as well as steroid with significant clinical improvement. Initially, he was hypoxic, but by the time of discharge, he was no longer hypoxic and he was on room air. He initially stayed in ICU for couple of days and then he was transferred to telemetry floor, where we continued antibiotic therapy. On discharge, we changed to levofloxacin p.o. and Pulmonary group cleared him for discharge. This patient will need repeat followup with automobile service station mechanic. The patient was seen and examined at bedside today. Please see my progress note from today for further detail. Job ID: [id number]
[2018-12-31 12:47] VITALS: BP 163/82; TEMP 98.3
== END 2018-12-31 12:56 | disposition home or self-care (01) | DRG 871 ==
LOC: ERS 18:05 → CCU 20:40 → ERS 23:02 → 2NO 12-29 13:06
PROVIDERS: ADMIT Internal Medicine; ATTEND Internal Medicine
PROC: 0W993ZZ Drainage of Right Pleural Cavity, Percutaneous Approach (ICD-10-PCS; principal; 2018-12-27)
DX: A40.3 Sepsis due to Streptococcus pneumoniae (principal); J96.01 Acute respiratory failure with hypoxia; J13 Pneumonia due to Streptococcus pneumoniae; R65.20 Severe sepsis without septic shock; I21.A1 Myocardial infarction type 2; E87.1 Hypo-osmolality and hyponatremia; J91.8 Pleural effusion in other conditions classified elsewhere; E11.9 Type 2 diabetes mellitus without complications; I10 Essential (primary) hypertension; E78.5 Hyperlipidemia, unspecified; F32.9 Major depressive disorder, single episode, unspecified; G89.29 Other chronic pain; M54.9 Dorsalgia, unspecified; Y95 Nosocomial condition; E83.42 Hypomagnesemia; E66.01 Morbid (severe) obesity due to excess calories; F41.9 Anxiety disorder, unspecified; E87.6 Hypokalemia; Z95.3 Presence of xenogenic heart valve; Z95.0 Presence of cardiac pacemaker; Z79.82 Long term (current) use of aspirin; Z85.51 Personal history of malignant neoplasm of bladder; Z68.38 Body mass index [BMI] 38.0-38.9, adult; Z87.891 Personal history of nicotine dependence; Z79.84 Long term (current) use of oral hypoglycemic drugs; Z79.899 Other long term (current) drug therapy
CPT/HCPCS: 32554; 36415; 36416; 71045; 71275; 80048; 80053; 81003; 82150; 82533; 82805; 82945; 83605; 83615; 83735; 83880; 83986; 84100; 84157; 84478; 84484; 85025; 85060; 85610; 85730; 86140; 87040; 87070; 87086; 87116; 87149; 87186; 87205; 87206; 87804; 88112; 88305; 89051; 93005; 93306; 94640; 94760; 96365; 96366; 96367; 96375; C9113; J0692; J1642; J1650; J1815; J1956; J2920; J3370; J3411; J3475; J3490; J7050; J7512; J7620; Q9966

== ENCOUNTER 2019-01-18 14:52 | Outpatient (CLI) | payer OTHER ==
--- NOTE | 2019-01-18 15:06 | RAD ---
XR Chest Pa Lat STANDARD History: Shortness of breath Comparison: Radiograph December 29, 2018 Findings: Layering effusions, similar. Heart size is enlarged. Mild pulmonary venous congestion. Dual -lead pacer. Impression: Similar examination of the chest with cardiomegaly, effusions and mild pulmonary venous c ongestion.
[2019-01-18 15:23] LABS: #Basophils 0.1 thou/uL (0.0-0.2); #Eosinphils 0.8 thou/uL (0.0-0.7); #Lymphocytes 1.4 thou/uL (1.20-3.40); #Monocytes 0.8 thou/uL (0.11-0.59); #Neutrophils 6.4 thou/uL (1.40-6.50); %Basophils 0.9 % (0.0-1.0); %Lymphocytes 14.8 % (21.0-51.0); %Monocytes 8.8 % (0.0-10.0); %Neutrophils 67.5 % (42.0-75.0); Hemoglobin 14.2 g/dL (14.0-18.0); Mean Corpuscular HGB CONC 31.7 g/dL (32.0-36.0); Mean Corpuscular Volume 88.3 fL (78.0-98.0); Mean Platelet Volume 9.5 fL (7.4-10.4); Platelet Count 189 thou/uL (130-400); RBC Distribution Width 15.8 % (11.5-14.5); Red Blood Cell (RBC) Count 5.08 mill/uL (4.70-6.10); White Blood Cell (WBC) Count 9.5 thou/uL (4.8-10.8)
[2019-01-18 15:24] LABS: ALT (SGPT) 19 U/L (8-55); AST (SGOT) 22 U/L (5-34); Albumin 3.7 g/dL (3.4-4.8); Alkaline Phosphatase 76 U/L (40-150); Anion Gap 13 mmol/L (10-20); BUN (Urea Nitrogen) 9 mg/dL (8.4-25.7); Bilirubin, Total 0.6 mg/dL (0.2-1.2); Calc. Creatinine Clearance 0 mL/min (70-130); Calcium 9.4 mg/dL (7.8-10.44); Carbon Dioxide 28 mmol/L (23-31); Chloride 103 mmol/L (98-107); Estimated GFR-MDRD Greater than 90; Globulin 3.3 g/dL (2.4-3.5); Glucose 92 mg/dL (80-115); Potassium 3.5 mmol/L (3.5-5.1); Sodium 140 mmol/L (136-145)
== END 2019-01-18 14:53 | disposition home or self-care (01) ==
LOC: SCSRAD 14:52
PROVIDERS: ATTEND Family Medicine
DX: R05 Cough (principal); J90 Pleural effusion, not elsewhere classified; I51.7 Cardiomegaly; R09.89 Other specified symptoms and signs involving the circulatory and respiratory systems
CPT/HCPCS: 36415; 71046; 80053; 83880; 85025

== ENCOUNTER 2019-01-25 11:43 | Outpatient (CLI) | payer OTHER ==
--- NOTE | 2019-01-25 12:08 | RAD ---
Chest 2 views HISTORY: Dyspnea. COMPARISON: 01/18/2019. FINDINGS: Cardiac silhouette remains upper limits of normal in size. Pulmonary vasculature remains so mewhat engorged. Mediastinum is midline with postoperative changes and a dual lead left subclavian cardiac electronic device. Bilateral fluid and patchy bibasilar infiltrates are similar in appearance to the previous study. No evidence of pneumothorax. IMPRESSION: No pleural fluid and pulmonary vascular congestions appear stable.
== END 2019-01-25 11:44 | disposition home or self-care (01) ==
LOC: RAD 11:43
PROVIDERS: ATTEND Internal Medicine Pulmonary Disease
DX: R06.00 Dyspnea, unspecified (principal)
CPT/HCPCS: 71046

== ENCOUNTER 2019-10-17 14:51 | Inpatient (IN) | payer OTHER ==
[~2019-10-17 14:51] MED LIST changes: -ISOVUE-370 76%-LOCM 1 ML ONE; +Iopamidol-370 76% 500 ML 1 ML ONE
--- NOTE | 2019-10-17 15:48 | CT ---
CT BRAIN NONCONTRAST: DATE: 10/17/2019 HISTORY: 64-year-old male with headache and gait abnormality FINDINGS: There is no evidence of acute intra-axial or extra-axial hemorrhage. There is no midline shift or any other mass effect. There is no extra-axial fluid collection. There is no evidence of obstructive hydrocephalus. Calvarium is intact. IMPRESSION: No acute intracranial findings.
[2019-10-17 16:02] LABS: #Eosinphils 0.5 thou/uL (0.0-0.7); #Lymphocytes 1.5 thou/uL (1.20-3.40); #Monocytes 0.7 thou/uL (0.11-0.59); #Neutrophils 5.5 thou/uL (1.40-6.50); %Basophils 0.4 % (0.0-1.0); %Eosinophils 5.8 % (0.0-10.0); %Lymphocytes 18.4 % (21.0-51.0); %Monocytes 8.6 % (0.0-10.0); %Neutrophils 66.8 % (42.0-75.0); Hemoglobin 16.1 g/dL (14.0-18.0); Mean Corpuscular HGB CONC 34.2 g/dL (32.0-36.0); Mean Corpuscular Hemoglobin 31.8 pg (27.0-31.0); Mean Corpuscular Volume 92.9 fL (78.0-98.0); Mean Platelet Volume 8.8 fL (7.4-10.4); Platelet Count 183 thou/uL (130-400); RBC Distribution Width 12.7 % (11.5-14.5); Red Blood Cell (RBC) Count 5.06 mill/uL (4.70-6.10); White Blood Cell (WBC) Count 8.3 thou/uL (4.8-10.8)
[2019-10-17 16:25] LABS: ALT (SGPT) 29 U/L (8-55); AST (SGOT) 30 U/L (5-34); Albumin 4.3 g/dL (3.4-4.8); Alkaline Phosphatase 74 U/L (40-110); Anion Gap 10 mmol/L (10-20); BUN (Urea Nitrogen) 10 mg/dL (8.4-25.7); Bilirubin, Total 0.8 mg/dL (0.2-1.2); Calc. Creatinine Clearance 0 mL/min (70-130); Calcium 9.1 mg/dL (7.8-10.44); Carbon Dioxide 30 mmol/L (23-31); Chloride 105 mmol/L (98-107); Estimated GFR-MDRD Greater than 90; Globulin 2.5 g/dL (2.4-3.5); Glucose 113 mg/dL (80-115); Potassium 3.8 mmol/L (3.5-5.1); Protein, Total 6.8 g/dL (5.8-8.1); Sodium 141 mmol/L (136-145)
[2019-10-17] MEDS ORDERED: Aspirin Chewable 81 MG TAB ONE (18:21)
--- NOTE | 2019-10-17 19:04 | CT ---
CTA of the head with IV contrast and 3-D reformatted imaging. CTA of the neck with IV contrast and 3-D reformatted imaging. INDICATION: Bilateral lower extremity weakness and neck pain; concern for vertebral artery dissection COMPARISON: CT the brain without contrast dated October 17, 2019 FINDINGS: CTA OF THE HEAD WITH CONTRAST: CTA OF THE BRAIN: Right ICA: Patent. Right MCA: Patent. Right GORAN: Patent. ACOM: Patent. Left ICA: Patent. Left MCA: Patent. Left GORAN: Patent. PCOMs: Patent. Vertebral arteries: Patent. Basilar Artery: Patent. lyric writer: Patent. Incidentals: No abnormal intracranial enhancement CTA OF THE NECK WITH CONTRAST: Right CCA: Patent. Right ICA: Patent. There are mild calcifications involving the right carotid bulb. Right Subclavian: Patent. Right Vertebral Artery: Patent. Left CCA: Patent. Left ICA: Patent. There are mild calcifications involving the left carotid bulb. Left Subclavian: Patent. Left Vertebral Artery: Patent. Aerodigestive tract: Clear. Parotids/Submandibular/Thyroid glands: There is a 1.6 cm hypodense nodule involving the left thyroid lobe. Lymph nodes: No pathologically enlarged lymph nodes. Lung Apices: Clear. Bones: No acute osseous abnormality. There is scattered degenerative and osteoarthritic change present. Incidentals: None. IMPRESSION: 1. No hemodynamically significant stenosis, occlusion or aneurysmal formation. 2. 1.6 m hypodense nodule within the left thyroid gland. Nonemergent thyroid ultrasound is recommende d for additional characterization.
[2019-10-17] MEDS ORDERED: Dextrose 50% Abboject 50 ML SYRINGE SLOW IVP PRN (19:40)
[2019-10-17] MEDS ORDERED: Dextrose 5% in Water 1,000 ML IV PRN (19:40)
[2019-10-17] MEDS ORDERED: HumaLOG 300 UNITS/3 ML VIAL SC PRN (19:40)
[2019-10-17] MEDS ORDERED: hydrALAZINE 20 MG/ML VIAL SLOW IVP PRN (19:40)
[2019-10-17] MEDS ORDERED: Aspirin 81 mg Enteric Coated Tablet PO SCH (19:45)
--- NOTE | 2019-10-17 20:34 | HP ---
PRIMARY CARE PROVIDER: Dr. Renu Crane CHIEF COMPLAINT: Difficulty walking. HISTORY OF PRESENT ILLNESS: This is a 64-year-old male with history of hypertension, dyslipidemia, aortic valve replacement with bovine valve, diabetes mellitus type 2, who presents to the emergency room complaining of difficulty with walking. The patient reports it started 2 days ago with the acute onset of neck pain that lasted approximately 5 minutes. He also had his right arm felt like it was locked up and complains of a cramping sensation that lasted about 20 minutes. Since then, he has noticed more difficulty walking that has progressively worsened. He complains of feeling unsteady, loses his balance, and his legs generally feel weak when he is standing. He denies any prior history, denies any precipitating or relieving factors. He does have bilateral carpal tunnel syndrome in his hands and is anticipated to have surgery soon. For his hands, he complains of numbness, bilateral, he denies any symptoms in his feet. The patient denies any headache, speech or swallowing difficulties, vision changes, upper extremity weakness with the exception of his hands. He also denies any fevers, chills, nausea, vomiting, or abdominal pain. In the emergency room, the patient's presentation concerning for possible stroke , he received aspirin 81 mg and hospitalist called for admission. ALLERGIES: NO KNOWN DRUG ALLERGIES. CURRENT MEDICATIONS: 1. Metformin 500 mg daily. 2. Fluoxetine 10 mg daily. 3. Atorvastatin 20 mg at bedtime. 4. Lisinopril 5 mg at bedtime. 5. Flomax 0.4 mg at bedtime. 6. Potassium chloride, unknown dose. 7. Furosemide 20 mg daily. 8. Aspirin 81 mg daily. PAST MEDICAL HISTORY: 1. Aortic valve status post replacement with bovine valve. 2. Bladder cancer, status post surgery and BCG treatment. 3. Diabetes mellitus type 2. 4. Dyslipidemia. 5. Hypertension. 6. BPH. PAST SURGICAL HISTORY: 1. Aortic valve replacement in November 2018. 2. Bladder cancer surgery 2012. 3. Hernia repair. 4. Pacemaker. 5. Chest tubes. PAST SOCIAL HISTORY: The patient uses alcohol 2-3 times per week, he is and his is his surrogate decision maker. He denies any tobacco, he works as a salesman for [email or web address]. He is a full code. FAMILY HISTORY: Negative for stroke, positive for dad who at 50 of an SC. REVIEW OF SYSTEMS: Positive for the bilateral carpal tunnel for which he will have surgery, bilateral hand numbness and weakness. Negative for headache, speech or swallow changes, vision changes, fevers, chills, nausea, vomiting. All remaining review of systems are reviewed and negative. PHYSICAL EXAMINATION: VITAL SIGNS: Blood pressure 161/90, pulse 70, respirations 16, temperature 98.7 , sats 96% on room air. GENERAL: Awake, alert, responsive, in no apparent distress. Able to speak in full sentences and answering questions appropriately. HEENT: His pupils are equal and round. Oral mucosa is pink and moist. NECK: Supple, nontender. Lymphatics no palpable cervical or supraclavicular lymphadenopathy. VASCULAR: No audible carotid bruits, 2+ radial and dorsalis pedis pulses. LUNGS: Clear to auscultation bilaterally. No audible wheezing rhonchi or rales. HEART: Normal S1, S2 with a 2/6 holosystolic ejection murmur. ABDOMEN: Soft, present bowel sounds. Nontender, nondistended. EXTREMITIES: No clubbing, cyanosis, or edema. SKIN: Hyperpigmentation of his lower extremities, bilateral. No visible rashes. NEURO: Cranial nerves 2 through 12 intact. Strength: While in bed his strength is 5/5 upper and lower extremities, bilateral. Reflexes: No ankle clonus. 2+ patellar reflexes. PSYCH: Appears euthymic, l/l/gd thought process. LABORATORY DATA: EKG personally reviewed sinus rhythm, left bundle branch block. No ST changes. CT scan of the brain, noncontrast, no acute intracranial findings. CT of the head and neck with and without contrast, no significant stenosis, occlusion or aneurysm formation. A 1.6 cm hypodense nodule within the left thyroid gland with recommendation for ultrasound. CBC: 8.3, 16.1, 47.0, 183. CHEMISTRY: 141, 3.8, 105, 30, 10, 0.77, 113. AST 30, ALT 29, alkaline phosphatase 74, total protein 6.8, albumin 4.3. Troponin 0.019. IMPRESSION: 1. Ataxia in a patient with multiple risk factors for stroke. 2. Diabetes mellitus, appears controlled. 3. Hypertension, not optimally controlled. 4. Dyslipidemia. 5. Bilateral carpal tunnel awaiting surgery. 6. Incidental finding of thyroid nodule 1.6 cm, needs outpatient followup. PLAN: 1. Observation status in the hospital. 2. We will initiate a stroke workup with a MRI of the brain and C-spine given the ataxia. As patient has a pacemaker, we will need to determine if he is safe for the study. 3. Continuing his usual medications, monitor on telemetry, we will order echocardiogram. 4. Holding the metformin due to contrast study today. We will use sliding scale insulin if needed with a.c. and at bedtime checks. 5. Anticipated length of stay is 1 midnight for the above workup. 6. Given the uncertainty of diagnosis, we will consult Neurology for further evaluation and recommendations. The patient has seen Dr. Saxena for EMG, who is on Teleneurology tomorrow. 7. Workup in the outpatient setting of the thyroid nodule is indicated. 8. Consult PT and OT for evaluation. 9. GI prophylaxis not indicated. 10. DVT prophylaxis, pneumatic compression devices. 11. Code status is full. Surrogate decision maker is the patient's . 12. The patient is at high risk given age, comorbidities and current presentation. Job ID: [id number] [facility]
[2019-10-17] MEDS: Tamsulosin HCl 0.4 MG CAP PO SCH (22:04)
[2019-10-17] MEDS: Atorvastatin Calcium 40 MG TAB PO SCH (22:04)
[2019-10-17] MEDS: Acetaminophen 325 MG TAB PO PRN (22:04)
[2019-10-17] MEDS: Lisinopril 5 MG TAB PO SCH (22:05)
[2019-10-17 22:15] VITALS: BMI 38.5
[2019-10-18 05:08] LABS: Cardiac Risk 2.6 (Less than 4.5)
--- NOTE | 2019-10-18 08:47 | PDOC.HOSPP ---
- Subjective Encounter Date: 10/18/19 Encounter Time: 08:46 Subjective: rambling complaints, main problem is difficulty walking - Objective Vital Signs & Weight: Vital Signs (12 hours) Temp Pulse Resp BP Pulse Ox 10/18/19 07:36 98.9 F 67 16 142/78 H 97 10/18/19 03:23 97.6 F 62 18 99 10/17/19 23:48 134/78 10/17/19 23:15 98 F 72 18 99 Weight Weight 268 lb 8 oz I&O: 10/17/19 10/18/19 10/19/19 06:59 06:59 06:59 Intake Total 250 Balance 250 Result Diagrams: 10/17/19 15:47 10/17/19 15:47 Additional Labs: Accuchecks 10/18/19 10/17/19 05:53 20:11 POC Glucose 102 99 Hospitalist ROS - Medication Medications: Active Medications Generic Name Dose Route Start Last Admin Trade Name Freq PRN Reason Stop Dose Admin Acetaminophen 650 mg 10/17/19 19:40 10/17/19 22:04 Tylenol PO 650 mg Q6H PRN Administration Headache/Fever/Mild Pain (1-3) Atorvastatin Calcium 40 mg 10/17/19 21:00 10/17/19 22:04 Lipitor PO 40 mg HS [facility] Administration Lisinopril 5 mg 10/17/19 21:00 10/17/19 22:05 Zestril PO 5 mg HS [facility] Administration Tamsulosin HCl 0.4 mg 10/17/19 21:00 10/17/19 22:04 Flomax PO 0.4 mg HS [facility] Administration - Exam General Appearance: awake alert Neck: no JVD Heart: RRR, no murmur Respiratory: CTAB Gastrointestinal: soft, normal bowel sounds Extremities: no edema Neurological: cranial nerve grossly intact, no weakness, no focal deficits Neurological - other findings: normal FNF, heel=schulz Hosp A/P (1) Ataxia Code(s): R27.0 - ATAXIA, UNSPECIFIED Status: Acute (2) Diabetes type 2, controlled Code(s): E11.9 - TYPE 2 DIABETES MELLITUS WITHOUT COMPLICATIONS Status: Chronic Qualifiers: Diabetes mellitus mcc insulin use: without long goods drier use Diabetes mellitus complication status: without complication Qualified Code(s): E11.9 - Type 2 diabetes mellitus without complications (3) Dyslipidemia Code(s): E78.5 - HYPERLIPIDEMIA, UNSPECIFIED Status: Chronic (4) Essential hypertension Code(s): I10 - ESSENTIAL (PRIMARY) HYPERTENSION Status: Chronic (5) H/O aortic valve replacement with porcine valve Code(s): Z95.3 - PRESENCE OF XENOGENIC HEART VALVE Status: Chronic - Plan neuro exam unrevealing MRI brain, c-spine awaiting clearance about pacemaker
[2019-10-18] MEDS ORDERED: Aspirin 325 mg Enteric Coated Tablet PO SCH (09:00)
[2019-10-18] MEDS: FLUoxetine HCl 10 MG CAP PO SCH (09:23)
[2019-10-18] MEDS: Furosemide 20 MG TAB PO SCH (09:23)
[2019-10-18] MEDS: Potassium Chloride 10 MEQ TAB PO SCH (09:23)
[2019-10-18] MEDS ORDERED: Lorazepam 1 MG TAB PO SCH (12:30)
[2019-10-18 13:02] LABS: Amphetamine Not Detected (NotDetected); Barbiturates Screen Not Detected (NotDetected); Benzodiazepine Screen Detected (NotDetected); Cocaine Metabolite Screen Not Detected (NotDetected); Medtox Control Line Valid? VALID (VALID); Medtox Reader # READER 1; Methadone Not Detected (NotDetected); Methamphetamine Not Detected (NotDetected); Opiate Screen Not Detected (NotDetected); Oxycodone Screen Not Detected (NotDetected); Phencyclidine (PCP) Not Detected (NotDetected); THC/Cannabinoid Screen Not Detected (NotDetected); Tricyclic Screen Not Detected (NotDetected)
--- NOTE | 2019-10-18 14:14 | MRI ---
MRI BRAIN WITHOUT CONTRAST: HISTORY: TIA CORRELATION: CT scan from 10/17/2019. FINDINGS: No restricted diffusion is seen. There The ventricular size is appropriate and the basilar cisterns a re patent. No evidence of acute infarct, hemorrhage, midline shift or abnormal extra-axial fluid collections is seen. There is a small focus of hemosiderin deposition in the right posterior temporal lobe. There is mild mucosal disease in the paranasal sinuses. IMPRESSION: No evidence of acute intracranial process.
--- NOTE | 2019-10-18 14:20 | MRI ---
MR CERVICAL SPINE WITHOUT CONTRAST INDICATION: 64-year-old male with ataxia and weakness TECHNIQUE: Multiplanar multisequence MR images were obtained of the cervical spine without contrast. COMPARISON: None FINDINGS: Posterior fossa: There is an arachnoid cyst versus a prominent negative cisterna magna involving the posterior fossa. This is better seen on the MR the brain dated 10/18/2019. Bone marrow signal intensity: Normal Spinal alignment: Normal. Craniocervical junction: Normal appearing. Prevertebral and perivertebral soft tissues: Visualized soft tissues appear within normal limits. Vertebral levels: C2-C3: There is a mild broad-based bulge with hypertrophy inducing mild left neural foraminal narrowi ng. C3-4: There is a broad-based disc osteophyte complex inducing severe central canal narrowing with mod erate ventral effacement of the spinal cord. There is uncovertebral hypertrophy and facet joint degenerative change inducing severe bilateral neural foraminal narrowing C4-5: There is a broad-based disc osteophyte complex with uncovertebral hypertrophy inducing severe central canal narrowing with moderate cord flattening. There is severe bilateral neural foraminal narrowing. C5-C6: There is a broad-based disc osteophyte complex with uncovertebral hypertrophy facet joint dege nerative change inducing severe central canal narrowing with moderate cord flattening. There is severe bilateral neural foraminal narrowing, left greater than right. C6-C7:, There is a broad-based disc osteophyte complex with uncovertebral hypertrophy inducing mild c entral canal narrowing and moderate to severe right neural foraminal narrowing. There is moderate left neural foraminal narrowing. C7-T1: There is a broad-based disc osteophyte complex with facet hypertrophy inducing moderate to sev ere right and mild left neural foraminal narrowing. IMPRESSION: 1. Severe central canal narrowing seen at C3-4 through C5-6 with the spinal cord flattening. For spin al cord signal abnormality is evident. 2. Multilevel neural foraminal narrowing as above.
--- NOTE | 2019-10-18 14:35 | PDOC.EVN ---
Event Note - Event Note Event Note: MRI brain ok. MRI c spine severe multi-level central canal stenosis- NS consult
--- NOTE | 2019-10-18 15:56 | CON ---
DATE OF CONSULTATION: This is Genet Skelton PA-C dictating a report for Shekhar Yi MD. HISTORY OF PRESENT ILLNESS: The patient is a 64-year-old male with a past medical history of aortic valve replacement, pacemaker, diabetes, hypertension, hyperlipidemia, history of bladder cancer, who presented to the emergency room on 10/17/2019 for gait instability. The patient reports he had developed numbness, burning, and hand clumsiness approximately 3 months ago, which has gotten progressively worse over the last few months. He was evaluated by Neurology and told he does have underlying carpal tunnel syndrome. He was at a work conference this week when he noticed he had new significant gait instability. He decided to have his bring him to the emergency department for further evaluation. On arrival, he had a noncontrast CT head and CTA brain, which were negative for any abnormalities. He was further evaluated with MRI of the brain and cervical spine. MRI of the cervical spine is notable for profound central cervical stenosis from C3 through C6. I visited with the patient at the bedside. His main complaint is some gait instability and burning and clumsiness in the hands. He denies significant weakness in the upper extremities and is moving everything in the bed without any difficulty. PAST MEDICAL HISTORY: Aortic valve replacement, diabetes, hypertension, hyperlipidemia, history of bladder cancer, and BPH. PAST SURGICAL HISTORY: Aortic valve replacement, bladder cancer surgery, hernia repair, pacemaker, and prior left-sided chest tubes for pleural effusion of unclear etiology. SOCIAL HISTORY: The patient lives at home with his . He does not smoke or use any drugs. He drinks socially 2 to 3 times per week. 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 FAMILY HISTORY: Noncontributory. REVIEW OF SYSTEMS: Per HPI. PHYSICAL EXAMINATION: GENERAL: The patient is sitting comfortably in the bed. No acute distress. VITAL SIGNS: Stable. Most recent temperature is 98.6, pulse is 67, respiratory rate is 19, the patient is 97% on room air, and blood pressure is 144/76. HEENT: Head; normocephalic and atraumatic. Eyes; PERRLA. Extraocular movements intact. ENT; oral mucosa is pink, intact, and moist. He has normal voice. NECK: He has free active range of motion. No meningismus or nuchal rigidity is appreciated. CARDIAC: Regular rate and rhythm. PULMONARY: Symmetric chest expansion. No evidence of dyspnea. MUSCULOSKELETAL: He is moving all 4s in the bed without significant difficulty. He has no obvious deformities. Symmetric pulses. SKIN: [place], dry, and warm. Upper extremity reflexes are just slightly hyperreflexive over the biceps jerk, but they are symmetric. He has positive Williams's sign in the upper extremities and the lower extremities. He has also just slightly hyperreflexic over knee jerk reflexes. Negative clonus. NEURO: A and O x4. No dysmetria. He is moving all 4s without difficulty. I did not assess his gait. ASSESSMENT AND PLAN: This is a 64-year-old male with progressive arm dysesthesias and gait instability, who has notable profound stenosis on his cervical MRI from C3 through C6. The patient has had progressive gait instability, but seems to have good strength on my exam in the bed. We will go ahead and get a physical therapy consult and I have also asked for the patient to get a rolling walker. This will likely require surgical intervention at some point. We will go ahead and stop his aspirin and we will ask the Hospitalist Service to medically clear the patient. Dr. Yi will meet with the patient tomorrow and further coordinate final plan. Job ID: [id number] [facility]
--- NOTE | 2019-10-18 16:08 | PDOC.EVN ---
Event Note - Event Note Event Note: with NS. will need Decompression near future. requested cardiology consult
[2019-10-18] MEDS: Dexamethasone 4 MG TAB PO SCH (18:10)
--- NOTE | 2019-10-18 19:03 | RAD ---
Portable frontal chest radiograph: 10/18/2019 COMPARISON: 12/29/2018 HISTORY: Pleural effusion FINDINGS: Evaluation for pleural fluid is limited without lateral imaging. Stable midline sternotomy wires and transvenous pacing device. Probable small bilateral pleural effusions are noted, left greater than right, decreased when compared to the 12/29/2018 exam. Recommend follow-up PA and lateral imaging of the chest. IMPRESSION: Portable chest radiograph as detailed above.
[2019-10-18] MEDS: Lisinopril 5 MG TAB PO SCH (20:34)
[2019-10-18] MEDS: Tamsulosin HCl 0.4 MG CAP PO SCH (20:34)
[2019-10-18] MEDS: Atorvastatin Calcium 40 MG TAB PO SCH (20:34)
[2019-10-18] MEDS: Acetaminophen 325 MG TAB PO PRN (23:41)
[2019-10-19] MEDS: Dexamethasone 4 MG TAB PO SCH ×3 (01:31→16:56)
--- NOTE | 2019-10-19 07:56 | PDOC.HOSPP ---
- Subjective Encounter Date: 10/19/19 Encounter Time: 07:55 Subjective: no cardioresp complaints, still weak in legs, etc - Objective Vital Signs & Weight: Vital Signs (12 hours) Temp Pulse Resp BP BP Pulse Ox 10/19/19 03:28 97.7 F 69 16 143/69 H 98 10/18/19 23:18 98.5 F 69 16 140/83 98 10/18/19 20:34 81 144/72 H Weight Weight 268 lb 8 oz I&O: 10/18/19 10/19/19 10/20/19 06:59 06:59 06:59 Intake Total 250 240 Balance 250 240 Result Diagrams: 10/17/19 15:47 10/17/19 15:47 Additional Labs: Accuchecks 10/19/19 10/18/19 10/18/19 05:31 19:38 16:25 POC Glucose 141 H 178 H 127 H 10/18/19 11:17 POC Glucose 116 H Hospitalist ROS - Medication Medications: Active Medications Generic Name Dose Route Start Last Admin Trade Name Freq PRN Reason Stop Dose Admin Acetaminophen 650 mg 10/17/19 19:40 10/18/19 23:41 Tylenol PO 650 mg Q6H PRN Administration Headache/Fever/Mild Pain (1-3) Atorvastatin Calcium 40 mg 10/17/19 21:00 10/18/19 20:34 Lipitor PO 40 mg HS [facility] Administration Dexamethasone 4 mg 10/18/19 17:00 10/19/19 01:31 Decadron PO 4 mg 0100,0900,1700 [facility] Administration Fluoxetine HCl 10 mg 10/18/19 09:00 10/18/19 09:23 Prozac PO 10 mg DAILY [facility] Administration Furosemide 20 mg 10/18/19 09:00 10/18/19 09:23 Lasix PO 20 mg DAILY [facility] Administration Lisinopril 5 mg 10/17/19 21:00 10/18/19 20:34 Zestril PO 5 mg HS [facility] Administration Potassium Chloride 10 meq 10/18/19 08:00 10/18/19 09:23 Klor-Con 10 PO 10 meq QAM-WM [facility] Administration Tamsulosin HCl 0.4 mg 10/17/19 21:00 10/18/19 20:34 Flomax PO 0.4 mg HS [facility] Administration - Exam General Appearance: awake alert Neck: no JVD Heart: RRR, II/IV Respiratory: CTAB Gastrointestinal: soft, normal bowel sounds Skin: no lesions Hosp A/P (1) Cervical spinal stenosis Code(s): M48.02 - SPINAL STENOSIS, CERVICAL REGION Status: Acute (2) Ataxia Code(s): R27.0 - ATAXIA, UNSPECIFIED Status: Acute (3) Diabetes type 2, controlled Code(s): E11.9 - TYPE 2 DIABETES MELLITUS WITHOUT COMPLICATIONS Status: Chronic Qualifiers: Diabetes mellitus distresser insulin use: without custodial use Diabetes mellitus complication status: without complication Qualified Code(s): E11.9 - Type 2 diabetes mellitus without complications (4) Dyslipidemia Code(s): E78.5 - HYPERLIPIDEMIA, UNSPECIFIED Status: Chronic (5) Essential hypertension Code(s): I10 - ESSENTIAL (PRIMARY) HYPERTENSION Status: Chronic (6) H/O aortic valve replacement with porcine valve Code(s): Z95.3 - PRESENCE OF XENOGENIC HEART VALVE Status: Chronic - Plan NS plans surgical decompression cardiology eval and recommendations pending cont present meds, etc
[2019-10-19] MEDS: Potassium Chloride 10 MEQ TAB PO SCH (08:44)
[2019-10-19] MEDS: FLUoxetine HCl 10 MG CAP PO SCH (08:44)
[2019-10-19] MEDS: Furosemide 20 MG TAB PO SCH (08:44)
[2019-10-19] MEDS: HumaLOG 300 UNITS/3 ML VIAL SC PRN ×2 (11:14→16:56)
--- NOTE | 2019-10-19 12:13 | CON ---
DATE OF CONSULTATION: HISTORY OF PRESENT ILLNESS: The patient is a 64-year-old gentleman, who presents for evaluation of neck discomfort and difficulty walking. The patient has a history of an aortic valve replacement and pacemaker placement. The patient in November 2016 underwent a cardiac catheterization. He was found to have significant aortic stenosis with no significant coronary artery disease. The patient subsequently underwent aortic valve replacement. He subsequently became weak and lightheaded. He was noted to be in heart block. The patient subsequently had placement of an electronic pacemaker. The patient subsequently has done well until recently. The patient noted a few months ago he had numbness in his hands. The patient for the past few days has had difficulty walking and pain in his neck. He denied any chest discomfort. The patient had been active until this past few days. He denied having any PND or orthopnea. PAST MEDICAL HISTORY: 1. Aortic stenosis. 2. Hypertension. 3. Diabetes mellitus. 4. Dyslipidemia. 5. Bladder carcinoma. PAST SURGICAL HISTORY: Bladder surgery, hernia surgery. MEDICATIONS: On admission; 1. Metformin 500 daily. 2. Lipitor 20 daily. 3. Aspirin 325 daily. 4. Prozac 10 daily. Medications: 1. Lasix 40 mg on Friday, Friday, and Friday. 2. Lipitor 20 at bedtime. 3. Aspirin 81 daily. 4. Flomax 0.4 daily. 5. Prozac 10 daily. 6. Coreg 3.125 b.i.d. 7. Metformin 500 daily. 8. Lisinopril 5 daily. 9. KCl 10 daily. 10. Minocycline 100 daily. FAMILY HISTORY: There is a strong family history of heart disease. SOCIAL HISTORY: Nonsmoker. ALLERGIES: NO KNOWN DRUG ALLERGIES. REVIEW OF SYSTEMS: Ten-point system otherwise unremarkable. PHYSICAL EXAMINATION: GENERAL: Obese gentleman, in no acute distress. VITAL SIGNS: Blood pressure of 143/69. NECK: No jugular venous distention. LUNGS: Clear to auscultation. HEART: Regular rate and rhythm. Normal S1 and S2. 1/6 systolic murmur. ABDOMEN: Nondistended. EXTREMITIES: Showed no edema. VASCULAR: Radial pulses are 2+. LABORATORY RESULTS: His sodium was 141, potassium 3.8, chloride 105, bicarbonate 30, BUN 10, and creatinine 0.77. Troponin 0.019. His white blood cell count is 8.3, hemoglobin 16.1, hematocrit 47.0, and platelets 183. IMAGING DATA: His EKG revealed normal sinus rhythm with left bundle-branch block. IMPRESSION: 1. Cervical spinal stenosis. 2. History of aortic valve replacement. 3. History of pacemaker placement. 4. Diabetes mellitus. 5. Hypertension. 6. Morbid obesity. PLAN: This gentleman needs to undergo surgery for cervical spinal stenosis. He should be at acceptable risk for surgery. We will follow this patient with you through his hospitalization. Job ID: [id number] [facility]
[2019-10-19] MEDS: Acetaminophen 325 MG TAB PO PRN (12:53)
--- NOTE | 2019-10-19 13:11 | PRG ---
DATE OF SERVICE: 10/19/2019 The patient is seen and examined. I agree with Genet Skelton's evaluation on 10/18/2019. The patient is a 64-year-old man with extensive medical comorbidities and obesity, who has had 3 months of progressive dysesthesia and clumsiness of his hands and 1 week of gait deterioration. He was admitted to the hospital for further evaluation. An MR imaging has revealed significant cervical stenosis from C3 through C6. IMPRESSION AND PLAN: The patient has progressive cervical myelopathy that is going to require surgical decompression and reconstruction from C3 through C6. Given his extensive medical and cardiac comorbidities, we will await cardiology clearance prior to considering proceeding with surgery. We will also hold his aspirin in preparation for surgery. I discussed with the patient and . Job ID: [id number]
[2019-10-19] MEDS ORDERED: traMADol HCl 50 MG TAB PO PRN (20:23)
[2019-10-19] MEDS: Lisinopril 5 MG TAB PO SCH (20:50)
[2019-10-19] MEDS: Tamsulosin HCl 0.4 MG CAP PO SCH (20:51)
[2019-10-19] MEDS: Atorvastatin Calcium 40 MG TAB PO SCH (20:51)
--- NOTE | 2019-10-19 22:43 | CON ---
DATE OF CONSULTATION: 10/19/2019 CONSULTING PHYSICIAN: Hospitalist Service. IMPRESSION: 1. Cervical spinal stenosis. 2. Carpal tunnel syndrome. PLAN: As per Neurosurgery's recommendations. HISTORY OF PRESENT ILLNESS: Mr. Pedraza is a 64-year-old gentleman, who was recently seen in the office for nerve conduction studies. This revealed moderately severe carpal tunnel syndrome bilaterally. The week went on and he suddenly started noticing difficulty with his gait. He came into the emergency room for evaluation. Initial CT scan of the brain was normal. MRI of the brain was also normal. He was a bit hypertensive. An MRI of the cervical spine was obtained. It showed significant central canal stenosis at the C3-C4 and C5-C6 levels. He has been started on Decadron. He has seen a slight improvement in his gait. He is not in any pain. Neurosurgery was consulted. They have recommended relatively quick surgery. He has been cleared by his employee operations examiner. PAST MEDICAL HISTORY: Coronary disease, hypertension, diabetes, hyperlipidemia. FAMILY HISTORY: Noncontributory. ALLERGIES: NONE. SOCIAL HISTORY: No tobacco. MEDICATIONS: List was reviewed. REVIEW OF SYSTEMS: Ten-system review of systems is otherwise negative. PHYSICAL EXAMINATION: GENERAL: Somewhat slightly overweight middle-aged man, in no acute distress. VITAL SIGNS: Blood pressure 142/98, pulse 66, respirations 16. HEENT: Pupils equal and reactive. Conjunctivae clear. Oropharynx clear. NECK: No lymphadenopathy. EXTREMITIES: No cyanosis or edema. NEUROLOGIC: He was alert and cooperative. His speech is fluent and clear. Cranial nerves were intact. Motor exam showed good pricing clerk strength bilaterally. He could walk independently, but was clearly unstable. Sensation was symmetric. No abnormal movements were seen. EKG showed a sinus rhythm. SUMMARY: This is a middle-aged gentleman with spinal stenosis and secondary gait difficulties. I agree with neurosurgical surgery's plans to decompress him. Job ID: [id number]
[2019-10-20] MEDS: Dexamethasone 4 MG TAB PO SCH ×2 (02:04→08:56)
[2019-10-20 04:53] VITALS: TEMP 97.6
[2019-10-20] MEDS: HumaLOG 300 UNITS/3 ML VIAL SC PRN ×2 (06:35→11:38)
[2019-10-20] MEDS: FLUoxetine HCl 10 MG CAP PO SCH (08:56)
[2019-10-20] MEDS: Furosemide 20 MG TAB PO SCH (08:56)
[2019-10-20] MEDS: Potassium Chloride 10 MEQ TAB PO SCH (08:56)
[2019-10-20 11:25] VITALS: BP 139/64
--- NOTE | 2019-10-20 13:20 | PRG ---
DATE OF SERVICE: 10/20/2019 Mr. Pedraza is doing well. He feels that his walking is improved after the steroids. He has been cleared by Cardiology for surgery. We will work on the timing for surgery. The surgery is quite a large undertaking and may take some time to arrange. He is safe to be discharged from the hospital today. We will stop steroids upon discharge and he will hold his aspirin until the surgery. All other medicines are unchanged. Discussing it with the patient and his the indications, risks, benefits, and alternatives, C3 through C6 anterior and posterior decompression and reconstruction including significant risks of , neurologic deficit, infection, or other complication. He expressed understanding and wished to proceed. Job ID: [id number]
--- NOTE | 2019-10-20 13:25 | DIS ---
DATE OF ADMISSION: 10/17/2019 DATE OF DISCHARGE: 10/20/2019 PRIMARY CARE PHYSICIAN: [facility] Call admission. DISCHARGE DISPOSITION: Home. PRIMARY DISCHARGE DIAGNOSIS: Severe cervical spine stenosis, C3-C4 through C5-C6. SECONDARY DISCHARGE DIAGNOSES: 1. Obesity with body mass index 38. 2. History of aortic valve replacement with porcine valve for aortic wall stenosis. 3. Hypertension. 4. Dyslipidemia. 5. Diabetes type 2. 6. Anxiety and depression. PRIMARY PROCEDURE/OPERATION: None. RADIOLOGICAL INVESTIGATION: CT brain on admission showed no acute intracranial process. CT [place] was negative for any hemodynamically significant stenosis, but it showed incidental finding of 1.6 cm hypodense nodule within left thyroid gland, and for that reason, we have advised the patient to get a nonemergent ultrasound after primary care physician followup. Echocardiography showed diastolic dysfunction with normal EF. MRI brain showed no evidence of acute intracranial process. Cervical spine MRI showed cervical canal stenosis. SIGNIFICANT LABORATORY DATA: CBC; WBC 8.3, hemoglobin 16.1, platelet 183. Sodium 141, potassium 3.8, BUN 10, creatinine 0.77. LFT normal. LDL 45. Urine drug screen positive for benzodiazepine. DISCHARGE MEDICATIONS: 1. Xanax 0.25 mg p.o. b.i.d. p.r.n. 2. Coreg 3.125 mg b.i.d. 3. Fluoxetine 10 mg daily. 4. Lasix 40 mg Friday, Friday, Friday. 5. Lisinopril 5 mg daily. 6. Metformin 500 mg daily. 7. Minocycline 100 mg daily. 8. Potassium chloride 20 mEq p.o. daily. 9. Flomax 0.4 mg daily. 10. Tramadol 50 mg q.6 hourly p.r.n. 11. Lipitor 20 mg p.o. at bedtime. CONTRAINDICATION: The patient is not given any aspirin because of the patient is planned for surgery. CODE STATUS: Full code. INPATIENT ROASTERMAN: Neurosurgery recommended outpatient surgery next week. Cardiology was consulted. Neurology was consulted. TEST RESULT PENDING ON DISCHARGE: None. ALLERGIES: NO KNOWN DRUG ALLERGIES. DISCHARGE PLAN: Posthospital, the patient will follow up with primary care physician, and the patient will follow up with Neurosurgery. The patient is planned for surgery next week. HOSPITAL COURSE: A 64-year-old male, who was presented to emergency room. He was having difficulty walking. The patient was found with ataxia, and he was admitted in hospital for observation. Initially, CT brain was negative. An MRI brain was also negative. He had CT angiography, which showed incidental finding of thyroid nodule, but otherwise unremarkable. Neurology saw this patient and they recommended MRI cervical spine. MRI cervical spine showed cervical canal stenosis. Neurosurgery was consulted, and Neurosurgery recommended that discontinue steroid and discontinue aspirin and they will do surgery next week, and they cleared him for discharge. The patient is seen and examined at bedside today. PHYSICAL EXAMINATION: VITAL SIGNS: Currently, temperature 97.6, pulse 65, respiratory rate 16, saturation 100% on room air, blood pressure 139/64, weight 268 pounds. GENERAL: The patient is currently alert, awake, no acute distress. HEAD: Normocephalic and atraumatic. NECK: Supple. No JVD. No meningeal signs of irritation. LUNGS: Clear to auscultation without any rhonchi or rales. CARDIAC: S1 and S2 regular. No murmur. No gallop. No rub. ABDOMEN: Soft and benign without any tenderness. EXTREMITIES: No edema. The patient is overall medically stable for discharge, and the patient agreed to go home today and he will follow up. While in hospital, he was given Decadron, but Neurosurgery recommended to discontinue Decadron and aspirin. Job ID: [id number]
== END 2019-10-20 12:03 | disposition home or self-care (01) | DRG 552 ==
LOC: ERS 14:51 → INTOOBSV 18:26 → 2SE 18:26 → OBSVTOIN 18:26 → 2SE 19:47
PROVIDERS: ADMIT Family Medicine; ATTEND Family Medicine
DX: M48.02 Spinal stenosis, cervical region (principal); G95.89 Other specified diseases of spinal cord; I10 Essential (primary) hypertension; E78.5 Hyperlipidemia, unspecified; E66.01 Morbid (severe) obesity due to excess calories; R27.0 Ataxia, unspecified; F41.9 Anxiety disorder, unspecified; C67.9 Malignant neoplasm of bladder, unspecified; G56.03 Carpal tunnel syndrome, bilateral upper limbs; N40.0 Benign prostatic hyperplasia without lower urinary tract symptoms; F32.9 Major depressive disorder, single episode, unspecified; Z68.38 Body mass index [BMI] 38.0-38.9, adult; Z79.01 Long term (current) use of anticoagulants; Z95.2 Presence of prosthetic heart valve; Z95.0 Presence of cardiac pacemaker
CPT/HCPCS: 36415; 36416; 70450; 70496; 70498; 70551; 71045; 72141; 80053; 80061; 80306; 84484; 85025; 93005; 93306; J8540; Q9967

== ENCOUNTER 2019-10-27 15:04 | Inpatient (IN) | payer OTHER ==
[2019-10-27] MEDS ORDERED: Promethazine HCl 12.5 MG SUPP PR PRN (16:19)
[2019-10-27] MEDS ORDERED: diphenhydrAMINE 25 MG CAP PO PRN ×2 (16:19→16:20)
[2019-10-27] MEDS ORDERED: Promethazine 25 MG TAB PO PRN ×2 (16:19→16:20)
[2019-10-27] MEDS ORDERED: Mag-Al 1200 mg/1200 mg/30 ML UDCUP PO PRN ×2 (16:19→16:20)
[2019-10-27] MEDS ORDERED: diphenhydrAMINE 50 MG/ML VIAL IVP PRN (16:19)
[2019-10-27] MEDS ORDERED: Ondansetron PF 4 MG/2 ML Vial IVP PRN ×2 (16:19→16:20)
[2019-10-27] MEDS ORDERED: HYDROcodone/Acetaminophen 10/325 mg Tablet PO PRN ×3 (16:19→16:20)
[2019-10-27] MEDS ORDERED: ALPRAZolam 0.25 MG TAB PO PRN (16:19)
[2019-10-27] MEDS ORDERED: Milk Of Magnesia 30 ML UDCUP PO PRN ×2 (16:19→16:20)
[2019-10-27] MEDS ORDERED: Morphine 2 MG/ML SYRINGE SLOW IVP PRN ×2 (16:19→16:20)
[2019-10-27] MEDS ORDERED: traMADol HCl 50 MG TAB PO PRN ×3 (16:19→16:20)
[2019-10-27] MEDS ORDERED: Promethazine HCl 25 MG/ML VIAL IM PRN ×2 (16:19→16:20)
[2019-10-27] MEDS ORDERED: tiZANidine HCl 4 MG TAB PO PRN (16:20)
[2019-10-27] MEDS ORDERED: Sodium Chloride 0.9% 1,000 ML IV SCH (16:30)
[2019-10-27 16:50] LABS: #Basophils 0.1 thou/uL (0.0-0.2); #Lymphocytes 0.9 thou/uL (1.20-3.40); #Monocytes 0.4 thou/uL (0.11-0.59); #Neutrophils 10.4 thou/uL (1.40-6.50); %Basophils 0.6 % (0.0-1.0); %Eosinophils 0.2 % (0.0-10.0); %Lymphocytes 7.3 % (21.0-51.0); %Monocytes 3.2 % (0.0-10.0); %Neutrophils 88.7 % (42.0-75.0); Mean Corpuscular HGB CONC 33.2 g/dL (32.0-36.0); Mean Corpuscular Hemoglobin 31.2 pg (27.0-31.0); Mean Corpuscular Volume 93.9 fL (78.0-98.0); Platelet Count 191 thou/uL (130-400); RBC Distribution Width 12.4 % (11.5-14.5); Red Blood Cell (RBC) Count 5.46 mill/uL (4.70-6.10); White Blood Cell (WBC) Count 11.7 thou/uL (4.8-10.8)
[2019-10-27 16:55] LABS: PTT 24.8 SEC (22.9-36.1)
[2019-10-27 17:14] LABS: Anion Gap 15 mmol/L (10-20); BUN (Urea Nitrogen) 14 mg/dL (8.4-25.7); Calc. Creatinine Clearance 0 mL/min (70-130); Calcium 9.4 mg/dL (7.8-10.44); Carbon Dioxide 21 mmol/L (23-31); Chloride 103 mmol/L (98-107); Estimated GFR-MDRD Greater than 90; Glucose 228 mg/dL (80-115); Potassium 4.1 mmol/L (3.5-5.1); Sodium 135 mmol/L (136-145)
[2019-10-27] MEDS ORDERED: Dextrose 50% Abboject 50 ML SYRINGE SLOW IVP PRN (17:20)
[2019-10-27] MEDS ORDERED: Insulin Regular 300 UNITS/3 ML VIAL SC PRN ×2 (17:20)
[2019-10-27] MEDS ORDERED: Dextrose 5% in Water 1,000 ML IV PRN (17:20)
[2019-10-27 18:02] VITALS: BMI 38.4
--- NOTE | 2019-10-27 18:24 | CON ---
DATE OF CONSULTATION: 10/27/2019 PRIMARY CARE PHYSICIAN: Renu Crane MD. PRIMARY BRUSH AND BROOM CLIPPER: Alcides You MD. REASON FOR CONSULTATION: Medical management. HISTORY OF PRESENT ILLNESS: The patient is a 64-year-old male with diabetes mellitus, hypertension, and recent diagnosis of severe cervical spinal stenosis. He is currently admitted for elective surgery. Hospitalist Team was consulted for medical management. The patient denies any chest pain, shortness of breath, palpitations, fever, or chills at this time. He has discontinued antiplatelets 2 to 3 weeks ago. He was on dexamethasone, which he discontinued yesterday per Neurosurgery recommendation. He denies recent episodes of chest pain, shortness of breath, or palpitations. Per the patient's report, he was cleared by Cardiology for surgery on last admission. He was discharged from this facility 1 week ago. PAST MEDICAL HISTORY: 1. Severe cervical spine stenosis. 2. Obesity with a BMI of 38. 3. Hypertension. 4. Hyperlipidemia. 5. Diabetes mellitus type 2. 6. Anxiety. 7. Depression. 8. Aortic stenosis, status post bioprosthetic aortic valve in 2019. 9. Symptomatic bradycardia, status post pacemaker in 2019. 10. Chronic low back pain. PAST SURGICAL HISTORY: 1. Aortic valve replacement. 2. Bladder surgery. 3. Umbilical hernia repair. 4. Pacemaker placement. 5. Chest tubes. ALLERGIES: NO KNOWN DRUG ALLERGIES. CURRENT HOME MEDICATION: 1. Lipitor 20 mg nightly. 2. Tramadol as needed. 3. Flomax 0.4 mg daily. 4. Potassium chloride 20 mEq daily. 5. Minocycline 100 mg daily. 6. Metformin 500 mg daily. 7. Lisinopril 5 mg daily. 8. Lasix 40 mg, Friday, Friday, and Friday. 9. Prozac 10 mg daily. 10. Carvedilol 3.125 mg b.i.d. 11. Xanax as needed. SOCIAL HISTORY: The patient currently lives at home with his spouse, who is the primary decision maker. He denies any smoking, alcohol, or drug use. He works as a salesman for [employer]. FAMILY HISTORY: Positive for premature coronary artery disease. His father of [place] at the age of 50. REVIEW OF SYSTEMS: All other review of systems was reviewed and negative. PHYSICAL EXAMINATION: VITAL SIGNS: The patient is afebrile with a pulse rate between 60 to 70, respirations of 16, and blood pressure 123/71 with O2 saturation 100% on room air. GENERAL: A 64-year-old male, in no apparent distress. HEENT: Head, atraumatic and normocephalic. Sclerae anicteric. Moist mucous membranes. No oral lesion. NECK: Supple. No JVD. No carotid bruit. LUNGS: Clear to auscultation bilaterally. No wheezing, rales, or rhonchi. HEART: S1-S2 present. Regular rate and rhythm. Healed midline scar from previous CABG. No rubs or gallops. There is 2/6 holosystolic murmur. ABDOMEN: Soft and nontender. Bowel sounds present. No rebound or guarding. No costovertebral angle tenderness. EXTREMITIES: No edema or calf tenderness. NEUROLOGIC: Grossly nonfocal. Moves all 4 extremities. Power was 5/5 in all extremities. PSYCHIATRY: Alert, awake, and oriented x3. Denies any suicidal ideation. SKIN: Warm and dry. LYMPH NODE: No palpable lymph nodes in the neck. LABORATORY FINDINGS: CBC showed WBC 11.7 with hemoglobin 17, hematocrit 51.2, and platelet 191. PT, INR, and PTT normal range. Chemistry showed sodium 135, potassium 4.1, chloride 103, bicarb 21, BUN 14, and creatinine 0.85. EKG by my review showed paced rhythm. Recent MRI by my review showed severe cervical spine stenosis. IMPRESSION: 1. Severe cervical spine stenosis for elective surgery in a.m. 2. Obesity with a BMI of 38. 3. Hypertension. 4. Hyperlipidemia. 5. Diabetes mellitus type 2. 6. Anxiety. 7. Depression without any suicidal ideation. 8. History of bioprosthetic aortic valve replacement. 9. Symptomatic bradycardia, status post pacemaker placement. 10. Mild hyponatremia. 11. Suspected sleep apnea. PLAN: We will continue beta-blockers. We will hold Lasix and potassium. We will start him on insulin sliding scale. Resume metformin after 24 hours. Continue statins. Continue Flomax. Vital signs per protocol. Physical Therapy and Occupational Therapy. DVT prophylaxis. Incentive spirometry. Gentle IV hydration overnight. We will add holding parameters on lisinopril. Thank you for this consultation. We will follow with you. Job ID: [id number]
[2019-10-27] MEDS: Carvedilol 3.125 MG TAB PO SCH (18:36)
[2019-10-27] MEDS: Atorvastatin Calcium 20 MG TAB PO SCH (20:32)
[2019-10-27] MEDS: Sodium Chloride 0.9% 1,000 ML IV SCH (23:47)
[2019-10-28] MEDS ORDERED: Tamsulosin HCl 0.4 MG CAP PO SCH (06:00)
[2019-10-28] MEDS: Sodium Chloride 0.9% 1,000 ML IV SCH ×2 (06:08→20:22)
[2019-10-28] MEDS ORDERED: Thrombin 5000 UNITS/5 ML VIAL ONE (06:36)
[2019-10-28] MEDS: Carvedilol 3.125 MG TAB PO SCH ×2 (06:43→17:29)
[2019-10-28] MEDS ORDERED: Bacitracin Zinc Ointment 30 gm TUBE ONE (07:01)
[2019-10-28] MEDS ORDERED: Fentanyl 100 MCG/2 ML VIAL ONE ×2 (07:08→08:12)
[2019-10-28] MEDS ORDERED: CEFAZOLIN 2 GM in Premix Bag 1 BAG IVPB SCH (07:30)
[2019-10-28] MEDS ORDERED: metFORMIN 500 MG TAB PO SCH (08:00)
[2019-10-28] MEDS ORDERED: Lisinopril 5 MG TAB PO SCH (09:00)
[2019-10-28] MEDS ORDERED: FLUoxetine HCl 10 MG CAP PO SCH (09:00)
[2019-10-28] MEDS ORDERED: Rocuronium Bromide 50 MG/5 ML VIAL ONE ×2 (09:21→09:52)
[2019-10-28] MEDS ORDERED: HYDROmorphone 2 MG/ML VIAL ONE (09:33)
[2019-10-28] MEDS ORDERED: Ondansetron PF 4 MG/2 ML Vial ONE ×3 (10:17→11:02)
[2019-10-28] MEDS ORDERED: PROPOFOL 200 MG/20 ML VIAL ONE (10:17)
[2019-10-28] MEDS ORDERED: Dexamethasone 20 MG/5 ML VIAL ONE (10:17)
[2019-10-28] MEDS ORDERED: EPHEDRINE 25 MG/5 ML SYRINGE ONE (10:17)
[2019-10-28] MEDS ORDERED: Rocuronium Bromide 10 MG/ML (10ML VIAL) ONE (10:17)
[2019-10-28] MEDS ORDERED: Ketorolac Tromethamine 30 MG/ML VIAL ONE (10:17)
[2019-10-28] MEDS ORDERED: diphenhydrAMINE 50 MG/ML VIAL ONE (10:17)
--- NOTE | 2019-10-28 11:02 | HP ---
HISTORY OF PRESENT ILLNESS: The patient is a 64-year-old male with a past medical history of aortic valve disease, pacemaker, hypertension, hyperlipidemia, BPH with a history of bladder cancer in remission, whom we evaluated on recent admission on 10/18/2019 for progressive gait instability and myelopathic symptoms. The patient was found to have significant severe cervical stenosis on MRI of the cervical spine. He was treated with Decadron with significant improvement and was subsequently discharged to home with plans for outpatient management. I call to check on the patient on 10/27/2019. The patient was found to have progressive myelopathy and gait instability per our conversation. He has been previously started on Decadron outpatient again, but this is not helping. Decision was made to direct admitted him for urgent management of critical cervical stenosis. PAST MEDICAL HISTORY: Cervical stenosis with cervical myelopathy, hypertension, hyperlipidemia, diabetes, aortic stenosis, aortic valve replacement, and symptomatic bradycardia with pacemaker. PAST SURGICAL HISTORY: Aortic valve replacement, bladder surgery for prior cancer, and pacemaker. ALLERGIES: HE HAS NO KNOWN DRUG ALLERGIES. SOCIAL HISTORY: Lives at home with his . He does smoke, drink, or use any drugs. CURRENT MEDICATION LIST: See electronic record. The patient reports he has been off his aspirin for the last 2 weeks. FAMILY HISTORY: Noncontributory. REVIEW OF SYSTEMS: Per HPI. PHYSICAL EXAMINATION: VITAL SIGNS: Stable and afebrile. GENERAL: No acute distress. HEENT: Head; normocephalic and atraumatic. Eyes; PERRLA. Extraocular movements intact. ENT; pink, intact, and moist. Normal voice. NECK: Nontender. Free active range of motion. No meningismus or nuchal rigidity. MUSCULOSKELETAL: Free active range of motion of all extremities. Appears to have good strength in the bed at this time. He is somewhat hyperreflexive throughout. NEUROLOGIC: A and O x4. I did not assess his gait at this time. ASSESSMENT: Critical cervical stenosis with cervical myelopathy. PLAN: The patient has been recommended for urgent management of this condition. Plan for C3 to C6 anterior and posterior decompression and fusion for 10/28/2019. The patient has been made n.p.o. at midnight. I discussed this plan with Dr. Yi, who is in agreement. Job ID: [id number]
[2019-10-28] MEDS ORDERED: SUGAMMADEX SODIUM 500 MG/5 ML VIAL ONE (11:09)
[2019-10-28] MEDS ORDERED: Ondansetron HCl/PF 4 MG/2 ML Vial IVP PRN (11:34)
[2019-10-28] MEDS ORDERED: Promethazine HCl 25 MG/ML VIAL SLOW IVP PRN (11:34)
[2019-10-28] MEDS ORDERED: HYDROmorphone 2 MG/ML VIAL SLOW IVP PRN (11:34)
[2019-10-28] MEDS ORDERED: Promethazine HCl 25 MG/ML VIAL IM PRN (11:34)
[2019-10-28] MEDS ORDERED: hydrALAZINE 20 MG/ML VIAL ONE (11:46)
[2019-10-28] MEDS ORDERED: HYDROmorphone 0.5 MG/0.5 ML SYRINGE ONE (11:49)
--- NOTE | 2019-10-28 11:55 | OP ---
DATE OF PROCEDURE: 10/28/2019 PLACEMENT INTERVIEWER: Genet Skelton PA-C PROCEDURES PERFORMED: Anterior cervical diskectomy and fusion C3 through C6, interbody arthrodesis, intervertebral biomechanical device, local morselized autograft, demineralized bone matrix, anterior titanium instrumentation C3 through C6; posterior approach C3 through C6 laminectomies, posterolateral arthrodesis C3 through C6; lateral mass screw instrumentation C3 through C6, demineralized bone matrix, local morselized autograft. DESCRIPTION OF PROCEDURE: The patient was brought to the operating room and intubated. He was positioned supine with the head in modest extension on a gel-filled donut. An incision was made in the right precervical area and dissected medial to the sternocleidomastoid muscle, identified the anterior cervical spinal, and the level was confirmed by x-ray. The procedure was very difficult given his very large body habitus. We debrided the anterior osteophytes, placed distraction across the disk spaces, and using the operative microscope and microdissection techniques, completely decompressed the intervertebral discs from C3 through C6 and complete decompression of the spinal cord was achieved. Bony endplates were then decorticated and the bony surfaces were prepared for the purpose of arthrodesis. An appropriate-sized intervertebral biomechanical PEEK device was brought into the field, filled with demineralized bone matrix and local morselized autograft, and tapped in place securely at C3-C4, C4-C5, and C5-C6. Next, an anterior plate was brought into the field and secured to C3, C4, C5, and C6 using two 14-mm screws at each level. The wound was then extensively irrigated and MAC hemostasis was secured and the wound was closed in anatomic layers over drain. The patient was then rolled in a prone position on gel-filled chest rolls with the head fixed in the neutral position in Ravi splitter head. Midline incision was made exposing C3 through C6 and the level was confirmed by x-ray. We performed complete C6, complete C5, complete C4, and inferior C3 laminectomies, completely decompressed the neural elements at these levels. Next, lateral mass screws were placed on the right at C3, C4, C5, and C6, connected to a brittany, secured by nuts, which were final tightened. The wound was then extensively irrigated and MAC hemostasis was secured. A combination of demineralized bone matrix and local morselized autograft was laid over the lamina on the posterolateral surfaces for the purpose of arthrodesis. Vancomycin powder was applied and the wound was then closed in anatomic layers over drain. Job ID: [id number]
--- NOTE | 2019-10-28 12:13 | EKG ---
Test Reason : Blood Pressure : / mmHG Vent. Rate : 081 BPM Atrial Rate : 081 BPM P-R Int : 168 ms QRS Dur : 162 ms QT Int : 440 ms P-R-T Axes : 047 036 203 degrees QTc Int : 511 ms Normal sinus rhythm Left bundle branch block Abnormal ECG When compared with ECG of 17-OCT-2019 18:18, T wave inversion more evident in Inferior leads Confirmed by ARCELIA SWEET, DR. Hernandez ([id number]) on 10/28/2019 12:12:49 PM Referred By: ANTHONY Confirmed By:DR. Mary PANIAGUA MD
[2019-10-28] MEDS: Morphine 4 MG/ML VIAL SLOW IVP PRN ×4 (13:43→23:00)
[2019-10-28] MEDS: CEFAZOLIN 2 GM in Premix Bag 1 BAG IVPB SCH ×2 (13:44→22:22)
[2019-10-28] MEDS: Tamsulosin HCl 0.4 MG CAP PO SCH (18:06)
[2019-10-28] MEDS: Lisinopril 5 MG TAB PO SCH (18:06)
--- NOTE | 2019-10-28 18:28 | PDOC.HOSPP ---
- Subjective Encounter Date: 10/28/19 Encounter Time: 17:30 Subjective: Patient seen and examined for med mngt. No CP/SOB or palpitations. No new complaints. No overnight events - Objective Vital Signs & Weight: Vital Signs (12 hours) Pulse Pulse Ox 10/28/19 18:06 62 10/28/19 13:00 97 Weight Weight 268 lb Result Diagrams: 10/27/19 16:39 10/27/19 16:39 Additional Labs: Accuchecks 10/28/19 10/27/19 05:31 20:37 POC Glucose 130 H 173 H EKG Reviewed by me: Yes (Tele SR) Hospitalist ROS - Review of Systems Respiratory: denies: cough, dry, shortness of breath, hemoptysis, SOB with excertion, pleuritic pain, sputum, wheezing, other Cardiovascular: denies: chest pain, palpitations, orthopnea, paroxysmal noc. dyspnea, edema, light headedness, other Gastrointestinal: denies: nausea, vomiting, abdominal pain, diarrhea, constipation, melena, hematochezia, other - Medication Medications: Active Medications Generic Name Dose Route Start Last Admin Trade Name Freq PRN Reason Stop Dose Admin Atorvastatin Calcium 20 mg 10/27/19 21:00 10/27/19 20:32 Lipitor PO 20 mg HS HAMMAD Administration Carvedilol 3.125 mg 10/27/19 17:00 10/28/19 17:29 Coreg PO 3.125 mg BID-WM HAMMAD Administration Sodium Chloride 1,000 mls @ 75 mls/hr 10/27/19 16:19 10/28/19 06:08 Normal Saline 0.9% IV Not Given .[id number] HAMMAD Cefazolin Sodium/Dextrose 2 gm 50 mls @ 100 mls/hr 10/28/19 14:00 10/28/19 13 :44 / Device IVPB 50 mls Q8HR HAMMAD Administration Lisinopril 5 mg 10/28/19 09:00 10/28/19 18:06 Zestril PO Not Given DAILY H[facility]MAD Morphine Sulfate 4 mg 10/27/19 16:19 10/28/19 17:28 Morphine SLOW IVP 4 mg Q1H PRN Administration SEVERE BREAKTHROUGH PAIN Tamsulosin HCl 0.4 mg 10/28/19 06:00 10/28/19 18:06 Flomax PO Not Given 0600 HAMMAD - Exam General Appearance: NAD Heart: RRR, no gallops Respiratory: no wheezes, no ronchi Gastrointestinal: non-tender, non-distended, normal bowel sounds Extremities: no cyanosis Neurological: no new deficit Hosp A/P - Plan DVT proph w/SCDs 1. Severe cervical spine stenosis. 2. Obesity with a BMI of 38. 3. Hypertension. 4. Hyperlipidemia. 5. Diabetes mellitus type 2. 6. Anxiety. 7. Depression without any suicidal ideation. 8. History of bioprosthetic aortic valve replacement. 9. Symptomatic bradycardia, status post pacemaker placement. 10. Mild hyponatremia. 11. Suspected sleep apnea. PLAN: Cont Betablocker Cont Flomax Cont Lisinopril Resume Lasix/Potassium in 1-2 days Resume metformin in AM. Continue statins. DVT prophylaxis. Incentive spirometry. DC IVF when tolerating PO
[2019-10-28] MEDS: HYDROcodone/Acetaminophen 10/325 mg Tablet PO PRN (19:13)
[2019-10-28] MEDS: Atorvastatin Calcium 20 MG TAB PO SCH (20:21)
[2019-10-29] MEDS: HYDROcodone/Acetaminophen 10/325 mg Tablet PO PRN ×4 (01:01→20:54)
[2019-10-29] MEDS: tiZANidine HCl 4 MG TAB PO PRN ×3 (04:05→18:39)
[2019-10-29] MEDS: traMADol HCl 50 MG TAB PO PRN ×3 (04:07→18:39)
[2019-10-29] MEDS: CEFAZOLIN 2 GM in Premix Bag 1 BAG IVPB SCH ×3 (05:29→21:00)
[2019-10-29] MEDS: Tamsulosin HCl 0.4 MG CAP PO SCH (05:29)
[2019-10-29] MEDS: Sodium Chloride 0.9% 1,000 ML IV SCH (07:30)
[2019-10-29] MEDS: Lisinopril 5 MG TAB PO SCH (08:54)
[2019-10-29] MEDS: FLUoxetine HCl 10 MG CAP PO SCH (08:54)
[2019-10-29] MEDS: Carvedilol 3.125 MG TAB PO SCH ×2 (08:54→16:08)
[2019-10-29] MEDS: metFORMIN 500 MG TAB PO SCH (08:54)
--- NOTE | 2019-10-29 10:55 | PRG ---
DATE OF SERVICE: 10/29/2019 SUBJECTIVE: The patient is now postoperative day #1, status post C3-C6 anterior and posterior decompression and fusion for cervical stenosis with cervical myelopathy. Following the surgery, he was transitioned to the Med/Surg floor, where his pain has been well controlled with p.o. medication overnight, he is tolerating a regular diet. His El was removed this morning, but he has not yet voided. He has a history of BPH, a remote history of bladder cancer and is on p.o. Flomax daily. He had two MAXINE drains placed intraoperatively, one anterior, one posterior. There was very minimal output from the anterior drain, only 2 mL overnight. The posterior drain had 40 mL out overnight. He remains on IV Ancef. OBJECTIVE: Overnight, the patient has remained afebrile. His vitals are stable. He is sitting up in the bed comfortably. He is in no acute distress. He has free active range of motion in all extremities. No focal motor weakness. His incisions are clean, dry, and intact. ASSESSMENT AND PLAN: We will plan to remove his anterior MAXINE drain. We will leave posterior MAXINE drain be in place. We will see how he does with voiding since the El was taken out this morning. We will progress his mobility with the assistance of Physical Therapy. I anticipate if he continues to do well and MAXINE drain output continues to trend downward that the posterior drain could be taken out tomorrow and possibly discharge home at that time. The patient has been provided with scripts for [place], Zanaflex, and Keflex and these are all in the chart. His home medication reconciliation has also been done. STILL PUMP OPERATOR aware checked prior to dismissal. Job ID: [id number] [facility]
[2019-10-29] MEDS: Morphine 4 MG/ML VIAL SLOW IVP PRN (11:26)
--- NOTE | 2019-10-29 19:26 | PDOC.HOSPP ---
- Subjective Encounter Date: 10/29/19 Encounter Time: 09:30 Subjective: Patient seen and examined for med mngt. No BM. Pain controlled. No new complaints. No overnight events - Objective Vital Signs & Weight: Vital Signs (12 hours) Temp Pulse Resp BP BP Pulse Ox 10/29/19 19:20 98 F 63 16 98/61 96 10/29/19 16:09 96 10/29/19 15:23 98.8 F 67 16 121/69 91 L 10/29/19 11:34 99.0 F 66 16 109/66 95 10/29/19 08:54 63 124/74 94 L 10/29/19 07:37 98.5 F 63 18 124/74 94 L Weight Weight 268 lb I&O: 10/28/19 10/29/19 10/30/19 06:59 06:59 06:59 Intake Total 1100 1150 Output Total 2597 20 Balance -1497 1130 Result Diagrams: 10/27/19 16:39 10/27/19 16:39 Additional Labs: Accuchecks 10/29/19 10/29/19 10/29/19 16:37 11:05 05:24 POC Glucose 170 H 114 H 104 10/28/19 20:05 POC Glucose 144 H Hospitalist ROS - Review of Systems Respiratory: denies: cough, dry, shortness of breath, hemoptysis, SOB with excertion, pleuritic pain, sputum, wheezing, other Cardiovascular: denies: chest pain, palpitations, orthopnea, paroxysmal noc. dyspnea, edema, light headedness, other - Medication Medications: Active Medications Generic Name Dose Route Start Last Admin Trade Name Freq PRN Reason Stop Dose Admin Hydrocodone Bitart/Acetaminophen 2 tab 10/27/19 16:19 10/29/19 16:08 [place] 10/325 PO 2 tab Q4H PRN Administration PAIN (4-6) Atorvastatin Calcium 20 mg 10/27/19 21:00 10/28/19 20:21 Lipitor PO 20 mg HS HAMMAD Administration Carvedilol 3.125 mg 10/27/19 17:00 10/29/19 16:08 Coreg PO 3.125 mg BID-WM HAMMAD Administration Fluoxetine HCl 10 mg 10/29/19 09:00 10/29/19 08:54 Prozac PO 10 mg DAILY HAMMAD Administration Sodium Chloride 1,000 mls @ 75 mls/hr 10/27/19 16:19 10/29/19 07:30 Normal Saline 0.9% IV Not Given .[id number] HAMMAD Cefazolin Sodium/Dextrose 2 gm 50 mls @ 100 mls/hr 10/28/19 14:00 10/29/19 13 :36 / Device IVPB 50 mls Q8HR HAMMAD Administration Insulin Human Regular 0 units 10/27/19 17:20 10/29/19 17:14 Humulin R SC 2 unit .MILD SLIDING SCALE PRN Administration Mild Correctional Scale Lisinopril 5 mg 10/28/19 09:00 10/29/19 08:54 Zestril PO 5 mg DAILY HAMMAD Administration Magnesium Hydroxide 30 ml 10/27/19 16:10/29/19 06:45 Milk Of Magnesium PO 30 ml Q12H PRN Administration Constipation Metformin HCl 500 mg 10/29/19 08:00 10/29/19 08:54 Glucophage PO 500 mg QAM-WM HAMMAD Administration Morphine Sulfate 4 mg 10/27/19 16:19 10/29/19 11:26 Morphine SLOW IVP 4 mg Q1H PRN Administration SEVERE BREAKTHROUGH PAIN Tamsulosin HCl 0.4 mg 10/28/19 06:00 10/29/19 05:29 Flomax PO 0.4 mg 0600 HAMMAD Administration Tizanidine HCl 4 mg 10/27/19 16:19 10/29/19 18:39 Zanaflex PO 4 mg Q6H PRN Administration MUSCLE SPASM Tramadol HCl 100 mg 10/27/19 16:19 10/29/19 18:39 Ultram PO 100 mg Q6H PRN Administration PAIN (4-6) - Exam General Appearance: NAD Heart: RRR, no gallops Respiratory: no wheezes, no ronchi Gastrointestinal: non-tender, non-distended, normal bowel sounds Extremities: no cyanosis Neurological: no new deficit Hosp A/P - Plan DVT proph w/SCDs 1. Severe cervical spine stenosis. 2. Obesity with a BMI of 38. 3. Hypertension. 4. Hyperlipidemia. 5. Diabetes mellitus type 2. 6. Anxiety. 7. Depression without any suicidal ideation. 8. History of bioprosthetic aortic valve replacement. 9. Symptomatic bradycardia, status post pacemaker placement. 10. Mild hyponatremia. 11. Suspected sleep apnea. PLAN: Cont Betablocker/Flomax/Lisinopril Cont Metformin/Statins Resume Lasix/Potassium at dc Add Sen-S DVT prophylaxis. Incentive spirometry.
[2019-10-29] MEDS: Senokot S 8.6-50 MG TAB PO SCH (20:49)
[2019-10-29] MEDS: Atorvastatin Calcium 20 MG TAB PO SCH (20:49)
[2019-10-30] MEDS: traMADol HCl 50 MG TAB PO PRN (03:40)
[2019-10-30] MEDS: tiZANidine HCl 4 MG TAB PO PRN (03:41)
[2019-10-30] MEDS: Tamsulosin HCl 0.4 MG CAP PO SCH (05:17)
[2019-10-30] MEDS: CEFAZOLIN 2 GM in Premix Bag 1 BAG IVPB SCH (05:18)
[2019-10-30] MEDS: Sodium Chloride 0.9% 1,000 ML IV SCH ×2 (06:21→10:12)
--- NOTE | 2019-10-30 07:34 | PRG ---
DATE OF SERVICE: 10/30/2019 Mr. Jourdan Pedraza had anterior and posterior cervical decompression and fusion with Dr. Yi earlier this week. He is now on his third postoperative day. The drains have had very little output overnight. He is feeling well and wants to get home. Mr. Pedraza sits up in bed. He is moving all his extremities well. He tells me he is prepared to take care of himself regarding all of his activities of daily living. We went over wound care and followup arrangements. He can be discharged later today after both drains are out. Job ID: [id number]
[2019-10-30] MEDS: Lisinopril 5 MG TAB PO SCH (08:24)
[2019-10-30] MEDS: FLUoxetine HCl 10 MG CAP PO SCH (08:24)
[2019-10-30] MEDS: Senokot S 8.6-50 MG TAB PO SCH (08:24)
[2019-10-30] MEDS: Carvedilol 3.125 MG TAB PO SCH (08:25)
[2019-10-30] MEDS: metFORMIN 500 MG TAB PO SCH (08:25)
[2019-10-30] MEDS: HYDROcodone/Acetaminophen 10/325 mg Tablet PO PRN ×2 (09:30→13:12)
[2019-10-30 12:04] VITALS: BP 134/74; TEMP 98.1
--- NOTE | 2019-11-01 11:27 | DIS ---
DATE OF ADMISSION: 10/27/2019 DATE OF DISCHARGE: 10/30/2019 The patient is a 64-year-old male, recently evaluated by us for progressive gait instability and found to have significant cervical stenosis and cervical myelopathy. We had planned to treat on an outpatient basis; however, the patient had decline in his function requiring oral steroids and direct admission for urgent C3-C6 anterior and posterior decompression and fusion for neurologic preservation. The patient then underwent this surgery on 10/28/2019. Following the surgery, he was transitioned to the Med-Surgery floor, where his pain has been well-controlled with p.o. medications, he is tolerating regular diet, and he is voiding appropriately. His incision remained clean, dry, and intact. He did have two MAXINE drains placed intraoperatively and the output trended downward during his admission. First drain was removed on postoperative day #1 and second drain was removed on postoperative day #2. I have discussed home care precautions and we will follow up with the patient by phone in 2 weeks. Job ID: [id number]
== END 2019-10-30 13:50 | disposition home or self-care (01) | DRG 454 ==
LOC: UNDOADMIN 15:56 → SURG A 15:56 → SJJU 15:57
PROVIDERS: ADMIT Neurological Surgery; ATTEND Neurological Surgery
PROC: 0RG20A0 Fusion of 2 or more Cervical Vertebral Joints with Interbody Fusion Device, Anterior Approach, Anterior Column, Open Approach (ICD-10-PCS; principal; 2019-10-28)
PROC: 0RG2071 Fusion of 2 or more Cervical Vertebral Joints with Autologous Tissue Substitute, Posterior Approach, Posterior Column, Open Approach (ICD-10-PCS; 2019-10-28)
DX: M48.02 Spinal stenosis, cervical region (principal); M50.01 Cervical disc disorder with myelopathy, high cervical region; E87.1 Hypo-osmolality and hyponatremia; E11.9 Type 2 diabetes mellitus without complications; I10 Essential (primary) hypertension; E66.9 Obesity, unspecified; E78.5 Hyperlipidemia, unspecified; F41.9 Anxiety disorder, unspecified; F32.9 Major depressive disorder, single episode, unspecified; N40.0 Benign prostatic hyperplasia without lower urinary tract symptoms; R00.1 Bradycardia, unspecified; Z68.38 Body mass index [BMI] 38.0-38.9, adult; Z95.2 Presence of prosthetic heart valve; Z95.0 Presence of cardiac pacemaker
CPT/HCPCS: 36415; 36416; 76000; 80048; 85025; 85610; 85730; 93005; 93010; C1713; C1768; C1776; J0360; J0690; J1100; J1170; J1200; J1815; J1885; J2270; J2405; J2704; J3010; J3370; J3490

== ENCOUNTER 2019-12-23 10:29 | Outpatient (CLI) | payer OTHER ==
--- NOTE | 2019-12-23 11:44 | RAD ---
EXAM: XR Cerv Sp Ap Lat STANDARD PROVIDED CLINICAL HISTORY: Prior cervical spine surgery 2 months ago. Cervical myelopathy. Follow-up evaluation. COMPARISON: None FINDINGS: C1 to the cervicothoracic junction is on the lateral and swimmer's views of the cervical spine. Posto perative changes related to anterior fusion with anterior plate and screws transfixing the C3-4, C4-5, C5-6 levels with intradiscal prostheses at these levels. In addition, there is evidence of post erior fusion with unilateral right-sided pedicular screws with interconnecting brittany transfixing these levels. Laminectomy defects are seen at these levels. No hardware complication is appreciated. The vertebral body heights are within normal limits. Mild degenerative changes are present at the C6-7 level with narrowing of intervertebral disc space and mild osteophyte formation. Partial visualization of left subclavian cardiac pacemaking device as well as median sternotomy wires are seen. Vascular calcifications overlie the right neck. IMPRESSION: 1. Anterior as well as posterior fusion of the C3-C6 levels without hardware complication seen. 2. Degenerative changes C6-7 level.
== END 2019-12-23 10:30 | disposition home or self-care (01) ==
LOC: BICRAD 10:29
PROVIDERS: ATTEND Neurological Surgery
DX: M47.12 Other spondylosis with myelopathy, cervical region (principal); Z98.1 Arthrodesis status
CPT/HCPCS: 72040

== ENCOUNTER 2020-08-23 09:50 | Outpatient (CLI) | payer OTHER ==
--- NOTE | 2020-08-23 10:15 | RAD ---
XR Chest Pa Lat STANDARD History: Pleural effusion Comparison: Radiograph October Findings: Large right and moderate left layering pleural effusions. Pacer leads project in a similar location. Multiple dimension up to be enlarged with fracture of the inferior most wires. Prior aortic valve replacement. Abnormal parenchymal thickening right lower lobe. Impression: Large right and moderate left layering pleural effusions with abnormal thickening right m iddle lower lobe may reflect underlying pneumonia although nonemergent follow-up chest CT recommended to evaluate for underlying mass.
== END 2020-08-23 09:51 | disposition home or self-care (01) ==
LOC: BICRAD 09:50
PROVIDERS: ATTEND Internal Medicine Cardiovascular Disease
DX: R06.02 Shortness of breath (principal); J90 Pleural effusion, not elsewhere classified
CPT/HCPCS: 71046

== ENCOUNTER 2020-09-14 13:13 | Outpatient (CLI) | payer OTHER ==
--- NOTE | 2020-09-14 17:29 | CT ---
CT CHEST WITHOUT CONTRAST: 09/14/20 INDICATIONS: Pleural effusion. Exam performed in follow-up to chest x-ray of 08/23/20. FINDINGS: There is loculated right pleural effusion with fluid extending along the lateral right chest wall wit hout significant layering indicating loculation. There is soft tissue density in the right lower lobe with scattered foci of calcification suggesting dense lung atelectasis. Underlying mass lesion cannot be excluded. The left lung is clear with no significant effusion. Mild pleural thickening. Scattered pleural calci fications. Mediastinum is unremarkable with no evidence of adenopathy. Nonspecific lymph nodes. Image s through the upper abdomen unremarkable. Bony thorax unremarkable with degenerative spine changes. Postop sternotomy changes. IMPRESSION: Moderate sized loculated effusion in the right chest with fluid extending along the lateral right ch est wall. There is adjacent dense atelectatic lung with scattered calcifications. Continued follow-up recommended. Follow-up chest CT after treatment is recommended with IV contrast to rule out associat ed pulmonary mass. POS: AGW
== END 2020-09-14 13:14 | disposition home or self-care (01) ==
LOC: BICCT 13:13
PROVIDERS: ATTEND Internal Medicine Pulmonary Disease
DX: J90 Pleural effusion, not elsewhere classified (principal)
CPT/HCPCS: 71250

== ENCOUNTER 2020-09-14 15:16 | Outpatient (CLI) | payer OTHER ==
[2020-09-15 06:45] LABS: SARS-CoV-2 PCR by NAA Not Detected (NotDetected)
== END 2020-09-14 15:17 | disposition home or self-care (01) ==
LOC: LABBT 15:16
PROVIDERS: ATTEND Internal Medicine Pulmonary Disease
DX: Z01.812 Encounter for preprocedural laboratory examination (principal); J90 Pleural effusion, not elsewhere classified; Z20.822 Contact with and (suspected) exposure to COVID-19
CPT/HCPCS: 87635; U0003; U0005

== ENCOUNTER 2020-09-18 07:03 | Day surgery (SDC) | payer OTHER ==
[2020-09-18] MEDS ORDERED: Lidocaine 1% PF 5 ML VIAL ONE (08:41)
--- NOTE | 2020-09-18 09:16 | RAD ---
XR Chest 1 View Portable History: Thoracentesis Comparison: CT chest September 14, 2020 Findings: Moderate layering right pleural effusion. Mild scarring left hemithorax. Heart size is enla rged. There is calcifications within the right lower lobe. Underlying mass cannot be totally excluded. Impression: Moderate right layering pleural effusion. No pneumothorax. PET/CT may be beneficial to ev aluate for underlying lung mass.
--- NOTE | 2020-09-18 09:53 | HP ---
HISTORY OF PRESENT ILLNESS: A 65-year-old gentleman, who was referred to the office with loculated pleural effusion, that is felt to be secondary to diastolic dysfunction. He had no associated fever, chills, sweats, or hemoptysis. PAST MEDICAL HISTORY: Pertinent for otherwise aortic valve replacement, pacemaker in 2017, diabetes, bladder carcinoma. PAST SURGICAL HISTORY: Bladder surgery, hernia surgery HOME MEDICATIONS: Include; 1. Tramadol. 2. Tizanidine. 3. Metformin. 4. Tamsulosin. 5. Zestril. 6. Lasix. 7. Prozac. ALLERGIES: NONE. SOCIAL HISTORY: Alcohol and tobacco, none. PHYSICAL EXAMINATION: VITAL SIGNS: Today, his saturations are 98% without any oxygen, pulse blood pressure 130/80. CHEST: Decreased breath sounds, right lower 1/3. Left lung unremarkable. CARDIAC; normal S1, S2. No gallops. Abdomen: No masses. ASSESSMENT: 1. Loculated pleural effusion. 2. Diabetes, coronary artery disease, aortic valve surgery. PLAN: Post thoracentesis, we will try and reassess treatment plan. He is going to require surgical intervention, possible decortication. Job ID: [id number]
--- NOTE | 2020-09-18 11:43 | OP ---
DATE OF PROCEDURE: 09/18/2020 Jourdan Pedraza is a 65-year-old gentleman. PROCEDURE: Outpatient thoracentesis. INDICATION: Pleural effusion, possibly loculated. DESCRIPTION OF PROCEDURE: After informed consent, the right posterior thorax was cleaned with chlorhexidine. 1% Xylocaine was infiltrated into the 8th intercostal space in the midscapular line, with 1.5-inch needle, we were unable to enter the pleural space. Thereafter, an 18-gauge lumbar puncture needle was used and about 20 mL of bloody effusion was removed. An 8-[place] catheter was therefore inserted and about 650 mL of bloody effusion was removed. Effusion was clearly loculated. It is going to be sent for appropriate studies including cytology and culture. The patient otherwise tolerated the procedure well. Job ID: [id number]
--- NOTE | 2020-09-18 15:37 | HP ---
He underwent an outpatient thoracentesis. He wanted to go home and consider seeing his surgeon for outpatient consult and eventually decortication. X-ray post-thoracentesis showed decrease in the pleural effusion, pleural effusion appears to be an exudate. These findings were discussed with the patient. He would be referred to CV Surgery in the next several days for appropriate intervention. Still awaiting cultures and cytology. Job ID: [id number]
== END 2020-09-18 09:45 | disposition home or self-care (01) ==
LOC: SDC 07:03
PROVIDERS: ATTEND Internal Medicine Pulmonary Disease
PROC: 0W993ZZ Drainage of Right Pleural Cavity, Percutaneous Approach (ICD-10-PCS; principal; 2020-09-18)
DX: J90 Pleural effusion, not elsewhere classified (principal); E11.9 Type 2 diabetes mellitus without complications; I25.10 Atherosclerotic heart disease of native coronary artery without angina pectoris; Z79.84 Long term (current) use of oral hypoglycemic drugs; Z79.899 Other long term (current) drug therapy; Z95.0 Presence of cardiac pacemaker; Z95.2 Presence of prosthetic heart valve
CPT/HCPCS: 32554; 71045; 87070; 87116; 87205; 87206; J0690; J1642

== ENCOUNTER 2020-09-21 07:45 | Inpatient (IN) | payer OTHER ==
[2020-09-25] MEDS ORDERED: Fentanyl 250 MCG/5 ML VIAL ONE (12:35)
[2020-09-25] MEDS ORDERED: Albumin 5% 0 ML ONE (12:35)
[2020-09-25] MEDS ORDERED: PHENYLEPHRINE-NS 100 MCG/ML 10 ML SYRINGE ONE ×2 (12:35→14:35)
[2020-09-25] MEDS ORDERED: Phenylephrine 10 MG/ML VIAL ONE (12:36)
[2020-09-25] MEDS ORDERED: Rocuronium Bromide 10 MG/ML (10ML VIAL) ONE (14:35)
[2020-09-25] MEDS ORDERED: Dexamethasone 20 MG/5 ML VIAL ONE (14:35)
[2020-09-25] MEDS ORDERED: Lidocaine 1.5% w/Epi 1:200K 30 ML VIAL (Epid Use) ONE (14:35)
[2020-09-25] MEDS ORDERED: Ondansetron PF 4 MG/2 ML Vial ONE (14:35)
[2020-09-25] MEDS ORDERED: Glycopyrrolate 0.2 MG/ML 5 ML SYRINGE ONE (14:35)
[2020-09-25] MEDS ORDERED: Lidocaine 1% PF 5 ML VIAL ONE (14:35)
[2020-09-25] MEDS ORDERED: PROPOFOL 200 MG/20 ML VIAL ONE (14:35)
[2020-09-25] MEDS ORDERED: Ondansetron HCl/PF 4 MG/2 ML Vial IVP PRN (15:04)
[2020-09-25] MEDS ORDERED: Promethazine HCl 25 MG/ML VIAL SLOW IVP PRN (15:04)
[2020-09-25] MEDS ORDERED: Promethazine HCl 25 MG/ML VIAL IM PRN ×2 (15:04→15:30)
[2020-09-25] MEDS ORDERED: Phenylephrine 40 MG in Sodium Chloride 0.9% 250 ML 250 ML IVPB PRN (15:15)
[2020-09-25] MEDS ORDERED: Ondansetron PF 4 MG/2 ML Vial IVP PRN ×2 (15:15→15:30)
[2020-09-25] MEDS ORDERED: traMADol HCl 50 MG TAB PO PRN ×2 (15:15→15:30)
[2020-09-25] MEDS ORDERED: HYDROcodone/Acetaminophen 10/325 mg Tablet PO PRN (15:15)
[2020-09-25] MEDS ORDERED: hydrALAZINE 20 MG/ML VIAL SLOW IVP PRN (15:15)
[2020-09-25] MEDS ORDERED: Insulin Regular 300 UNITS/3 ML VIAL SC PRN (15:15)
[2020-09-25] MEDS ORDERED: HYDROcodone/Acetaminophen 5/325 mg Tablet PO PRN (15:30)
[2020-09-25] MEDS ORDERED: Ketorolac Tromethamine 30 MG/ML VIAL IVP PRN (15:30)
[2020-09-25] MEDS ORDERED: diphenhydrAMINE 50 MG/ML VIAL IM PRN (15:30)
[2020-09-25] MEDS ORDERED: Naloxone HCl 0.4 mg/ml Vial IV PRN (15:30)
[2020-09-25] MEDS ORDERED: Naloxone HCl 0.4 mg/ml Vial IVP PRN (15:30)
[2020-09-25] MEDS ORDERED: diphenhydrAMINE 25 MG CAP PO PRN (15:30)
[2020-09-25] MEDS ORDERED: Bupivacaine 0.25% 10 ML VIAL EPIDURAL PRN (15:30)
[2020-09-25] MEDS ORDERED: Promethazine HCl 25 MG SUPP PR PRN (15:30)
[2020-09-25] MEDS ORDERED: Zolpidem Tartrate 5 MG TAB PO PRN (15:30)
[2020-09-25] MEDS ORDERED: Hydrocerin (Eucerin) Cream 120 gm Jar TOP PRN (15:30)
[2020-09-25] MEDS ORDERED: diphenhydrAMINE 50 MG/ML VIAL IVP PRN (15:30)
--- NOTE | 2020-09-25 15:39 | OP ---
DATE OF PROCEDURE: 09/25/2020 PREOPERATIVE DIAGNOSIS: Right recurrent bloody pleural effusion-loculated. POSTOPERATIVE DIAGNOSIS: Right recurrent bloody pleural effusion-loculated. PROCEDURE PERFORMED: Right thoracotomy with total pulmonary decortication. ANESTHESIA: General endotracheal. ESTIMATED BLOOD LOSS: Less than 100. SPECIMENS: 1. Pleura for pathology. 2. Pleural fluid for cytology and culture. DRAINS: 24-Vietnamese Alexx drains x2. DESCRIPTION OF PROCEDURE: After consent was obtained, the patient was brought to the operating room, placed in supine position on the operating table. Appropriate central line and monitors were placed and general endotracheal anesthesia was induced. The patient was placed in the left lateral decubitus position. Joints were appropriately padded. SCDs were used. Right posterolateral thoracotomy was performed. Approximately the 6th interspace was entered. The lung and pleura were fused with a thick peel anteriorly. This was taken down. Eventually, the pocket was entered. Cultures and cytology were taken. Some of the pocket was then sent for pathologic exam. The lung was from the thick peel and completely decorticated circumferentially. Once the lung was completely freed, lung was inflated until the chest cavity nicely. Two 24-[place]namese Alexx drains were placed, one along the diaphragm, one to the apex posteriorly. The chest was irrigated. The ribs were reapproximated with #1 Vicryl. Wounds were then irrigated, closed in layers, and Dermabond was applied to skin. The patient was awakened, extubated, and transferred to the intensive care unit in stable condition. Job ID: [id number]
[2020-09-25] MEDS: HYDROcodone/Acetaminophen 5/325 mg Tablet PO PRN (17:22)
[2020-09-25] MEDS: Sodium Chloride 0.9% 1,000 ML IV SCH (17:24)
--- NOTE | 2020-09-25 18:23 | RAD ---
AP CHEST: HISTORY: Status post thoracotomy. COMPARISON: 09/18/2020 FINDINGS: Postop sternotomy changes with pacemaker leads again noted. There are two right chest tubes. There co ntinues to be opacification of the right lung base and there is atelectasis and/or infiltrate in the left lung base, similar to the prior study. Cardiomegaly with mild vascular engorgement again noted. Fluid density extends along the right lateral chest wall. No significant pneumothorax. IMPRESSION: 1. Two right-sided chest tubes, consistent with a history of thoracotomy. 2. Continued opacification in the right lung base with right effusion. 3. Left basilar atelectasis and/or infiltrate appears similar to the prior examination. 4. Cardiomegaly and mild vascular engorgement again noted. POS: AGW
[2020-09-25] MEDS: Carvedilol 3.125 MG TAB PO SCH (21:00)
[2020-09-25] MEDS: CEFAZOLIN 2 GM in Premix Bag 1 BAG IVPB SCH (21:00)
[2020-09-25] MEDS: Atorvastatin Calcium 20 MG TAB PO SCH (21:00)
[2020-09-25] MEDS: Tamsulosin HCl 0.4 MG CAP PO SCH (21:02)
[2020-09-25] MEDS: Lisinopril 5 MG TAB PO SCH (21:02)
[2020-09-26] MEDS: Sodium Chloride 0.9% 1,000 ML IV SCH (00:35)
[2020-09-26] MEDS: HYDROcodone/Acetaminophen 5/325 mg Tablet PO PRN ×4 (01:12→19:59)
[2020-09-26 04:30] LABS: #Neutrophils 11.8 thou/uL (1.40-6.50); %Lymphocytes 7.5 % (21.0-51.0); %Neutrophils 85.5 % (42.0-75.0); Hemoglobin 14.1 g/dL (14.0-18.0); Mean Corpuscular HGB CONC 32.5 g/dL (32.0-36.0); Mean Corpuscular Hemoglobin 29.1 pg (27.0-31.0); Mean Corpuscular Volume 89.4 fL (78.0-98.0); Mean Platelet Volume 8.1 fL (7.4-10.4); Platelet Count 249 thou/uL (130-400); RBC Distribution Width 12.2 % (11.5-14.5); Red Blood Cell (RBC) Count 4.85 mill/uL (4.70-6.10); White Blood Cell (WBC) Count 13.8 thou/uL (4.8-10.8)
[2020-09-26] MEDS: CEFAZOLIN 2 GM in Premix Bag 1 BAG IVPB SCH ×2 (04:44→11:58)
[2020-09-26 04:59] LABS: Anion Gap 12 mmol/L (10-20); BUN (Urea Nitrogen) 12 mg/dL (8.4-25.7); Calc. Creatinine Clearance 172 mL/min (70-130); Carbon Dioxide 24 mmol/L (23-31); Chloride 103 mmol/L (98-107); Glucose 156 mg/dL (80-115); Potassium 3.9 mmol/L (3.5-5.1); Sodium 135 mmol/L (136-145)
[2020-09-26] MEDS: Potassium Chloride 20 MEQ TAB PO SCH (07:46)
[2020-09-26] MEDS: Carvedilol 3.125 MG TAB PO SCH ×2 (07:46→20:00)
[2020-09-26] MEDS: metFORMIN 500 MG TAB PO SCH (07:46)
--- NOTE | 2020-09-26 07:57 | RAD ---
XR Chest 1 View Portable HISTORY: Postop thoracotomy COMPARISON: Prior day's study FINDINGS: Right-sided pleural and parenchymal lung changes and right-sided chest tubes are stable in position. Heart size is enlarged. A pacemaker is present. Postoperative changes of the spine are seen. IMPRESSION: Stable exam.
[2020-09-26] MEDS: Fentanyl 5 mcg/Bup 0.075% Cadd 100 ML EPIDURAL SCH (08:35)
[2020-09-26] MEDS ORDERED: FLU VACC QS2020-21(6MOS UP)/PF 60 MCG/0.5 ML SYRINGE IM ONE (09:00)
--- NOTE | 2020-09-26 10:32 | PRG ---
DATE OF SERVICE: 09/26/2020 SUBJECTIVE: Status post decortication. He is doing well. No pain. No shortness of breath. OBJECTIVE: VITAL SIGNS: His temperature is 98, pulse 78, sats 90% on room air, and blood pressure 130/70. CHEST: No wheezing. No crackles. CARDIAC: Normal S1 and S2. ABDOMEN: No masses. ASSESSMENT: Status post decortication, bloody effusion, chronic etiology unclear, and morbid obesity. PLAN: I agree with present treatment, PT, supportive care, only ambulation. The patient's states the patient snoring. Denies any sleep apnea issues. Job ID: [id number]
[2020-09-26] MEDS: Atorvastatin Calcium 20 MG TAB PO SCH (19:59)
[2020-09-26] MEDS: Lisinopril 5 MG TAB PO SCH (20:00)
[2020-09-26] MEDS: Tamsulosin HCl 0.4 MG CAP PO SCH (20:00)
[2020-09-27] MEDS: HYDROcodone/Acetaminophen 5/325 mg Tablet PO PRN ×4 (01:51→21:30)
[2020-09-27] MEDS: Fentanyl 5 mcg/Bup 0.075% Cadd 100 ML EPIDURAL SCH ×2 (02:24→18:32)
[2020-09-27] MEDS: Furosemide 40 MG TAB PO SCH (07:40)
[2020-09-27] MEDS: Potassium Chloride 20 MEQ TAB PO SCH (07:40)
[2020-09-27] MEDS: Carvedilol 3.125 MG TAB PO SCH ×2 (07:40→21:30)
[2020-09-27] MEDS: metFORMIN 500 MG TAB PO SCH (07:40)
--- NOTE | 2020-09-27 10:39 | PRG ---
DATE OF SERVICE: 09/27/2020 SUBJECTIVE: This morning, awake, alert, responsive. No pain. OBJECTIVE: VITAL SIGNS: Temperature , pulse 72, sats on room air, blood pressure 120/69. CHEST: Minimal crackles, right lung. CARDIAC: Normal S1, S2. No gallops. ABDOMEN: Soft. IMPRESSION: Status post decortication, obesity, and coronary artery disease. The patient doing well. Once we have all his chest tube removed, he can probably go home. All cultures on his pleural effusion, so far, negative. Job ID: [id number]
[2020-09-27] MEDS: Lisinopril 5 MG TAB PO SCH (21:30)
[2020-09-27] MEDS: Atorvastatin Calcium 20 MG TAB PO SCH (21:31)
[2020-09-27] MEDS: Tamsulosin HCl 0.4 MG CAP PO SCH (21:31)
[2020-09-28] MEDS: HYDROcodone/Acetaminophen 5/325 mg Tablet PO PRN ×5 (00:05→22:47)
[2020-09-28] MEDS: Potassium Chloride 20 MEQ TAB PO SCH (09:03)
[2020-09-28] MEDS: metFORMIN 500 MG TAB PO SCH (09:03)
[2020-09-28] MEDS: Carvedilol 3.125 MG TAB PO SCH ×2 (09:04→21:18)
--- NOTE | 2020-09-28 09:43 | PRG ---
DATE OF SERVICE: 09/28/2020 SUBJECTIVE: Jourdan Pedraza is a 65-year-old gentleman, remains in the hospital. OBJECTIVE: VITAL SIGNS: Temperature 98.6, respiratory rate 18, saturation 97% on room air, blood pressure 126/64. CHEST: Chest tube was removed. He is less short of breath, less pain. No wheezing. No crackles. CARDIAC: Normal S1, S2. ASSESSMENT: Status post decortication, bloody effusion, etiology unclear, cultures all negative. PLAN: Home once he is ambulating. Job ID: [id number]
[2020-09-28] MEDS: Atorvastatin Calcium 20 MG TAB PO SCH (21:17)
[2020-09-28] MEDS: Lisinopril 5 MG TAB PO SCH (21:19)
[2020-09-28] MEDS: Tamsulosin HCl 0.4 MG CAP PO SCH (21:20)
[2020-09-29] MEDS: HYDROcodone/Acetaminophen 5/325 mg Tablet PO PRN ×2 (02:27→08:25)
[2020-09-29 04:24] VITALS: BMI 40.7
--- NOTE | 2020-09-29 07:25 | DIS ---
DATE OF ADMISSION: 09/25/2020 DATE OF DISCHARGE: 09/29/2020 DIAGNOSIS: Right recurrent bloody pleural effusion. PROCEDURE: Right thoracotomy with total pulmonary decortication. DESCRIPTION OF HOSPITAL STAY: Mr. Pedraza was brought in for an elective decortication. He has done well. The cultures were all negative of the fluid. Pathology is still pending. The tubes were removed yesterday and he has done well without chest tube drainage. He is being discharged home in good condition and follow up with me in 2 weeks. DISCHARGE MEDICATIONS: Unchanged. Job ID: [id number]
[2020-09-29 07:30] VITALS: BP 147/64; TEMP 96.4
[2020-09-29] MEDS: Carvedilol 3.125 MG TAB PO SCH (08:24)
[2020-09-29] MEDS: Potassium Chloride 20 MEQ TAB PO SCH (08:24)
[2020-09-29] MEDS: metFORMIN 500 MG TAB PO SCH (08:24)
[2020-09-29] MEDS: Furosemide 40 MG TAB PO SCH (08:24)
--- NOTE | 2020-09-29 10:52 | PRG ---
DATE OF SERVICE: 09/29/2020 SUBJECTIVE: Jourdan Pedraza is awake, alert, responsive. All his chest tubes out this morning. OBJECTIVE: VITAL SIGNS: Temperature 98, pulse 72, sats 95% on room air, blood pressure 147/64. Some pain, but no shortness of breath. CHEST: No wheezing. No crackles. CARDIAC: Normal S1, S2. ABDOMEN: No masses. ASSESSMENT: Status post decortication. PLAN: Disposition home. Follow up in the office in 2 weeks with a chest x-ray . He is to continue all his cardiac medicine and follow up with his compliance examiner, Dr. You. Job ID: [id number]
== END 2020-09-29 10:40 | disposition home or self-care (01) | DRG 164 ==
LOC: SURG A 09-25 10:20 → CCU 09-25 16:44 → 2NO 09-26 11:36
PROVIDERS: ADMIT Thoracic Surgery (Cardiothoracic Vascular Surgery); ATTEND Thoracic Surgery (Cardiothoracic Vascular Surgery)
PROC: 0BNK0ZZ Release Right Lung, Open Approach (ICD-10-PCS; principal; 2020-09-25)
PROC: 0W990ZX Drainage of Right Pleural Cavity, Open Approach, Diagnostic (ICD-10-PCS; 2020-09-25)
DX: J90 Pleural effusion, not elsewhere classified (principal); Z68.41 Body mass index [BMI] 40.0-44.9, adult; E66.01 Morbid (severe) obesity due to excess calories; I25.10 Atherosclerotic heart disease of native coronary artery without angina pectoris
CPT/HCPCS: 36416; 71045; 80048; 85025; 87070; 87205; 88112; 88305; 88312; 88341; 88342; J0360; J0690; J1100; J1885; J2001; J2370; J2405; J2704; J3010; P9045

== ENCOUNTER 2020-10-09 10:34 | Outpatient (CLI) | payer OTHER ==
--- NOTE | 2020-10-09 11:31 | RAD ---
EXAM: Chest PA and lateral: HISTORY: Pleural effusion COMPARISON: 09/26/2020 FINDINGS: Bilateral effusions, larger on the right. Not significantly changed from prior exam. Right chest tube has been removed. Upper lung nair are clear. Borderline cardiomegaly and postop sternotomy change stable. Pacemaker leads unchanged. Osseous structures are unremarkable. IMPRESSION: Bilateral effusions, larger on the right.
== END 2020-10-09 10:35 | disposition home or self-care (01) ==
LOC: RAD 10:34
PROVIDERS: ATTEND Thoracic Surgery (Cardiothoracic Vascular Surgery)
DX: J90 Pleural effusion, not elsewhere classified (principal)
CPT/HCPCS: 71046

== ENCOUNTER 2020-10-14 11:49 | Inpatient (IN) | payer OTHER ==
[2020-10-14 12:29] LABS: #Lymphocytes 1.7 thou/uL (1.20-3.40); #Monocytes 1.5 thou/uL (0.11-0.59); #Neutrophils 11.9 thou/uL (1.40-6.50); %Basophils 0.2 % (0.0-1.0); %Eosinophils 6.4 % (0.0-10.0); %Lymphocytes 10.4 % (21.0-51.0); %Monocytes 9.2 % (0.0-10.0); %Neutrophils 73.8 % (42.0-75.0); Hemoglobin 13.1 g/dL (14.0-18.0); Mean Corpuscular HGB CONC 33.9 g/dL (32.0-36.0); Mean Corpuscular Hemoglobin 30.7 pg (27.0-31.0); Mean Corpuscular Volume 90.8 fL (78.0-98.0); Mean Platelet Volume 8.1 fL (7.4-10.4); Platelet Count 258 thou/uL (130-400); RBC Distribution Width 12.5 % (11.5-14.5); Red Blood Cell (RBC) Count 4.25 mill/uL (4.70-6.10); White Blood Cell (WBC) Count 16.1 thou/uL (4.8-10.8)
[2020-10-14 12:50] LABS: ALT (SGPT) 14 U/L (8-55); AST (SGOT) 15 U/L (5-34); Albumin 3.4 g/dL (3.4-4.8); Alkaline Phosphatase 93 U/L (40-110); Anion Gap 13 mmol/L (10-20); BUN (Urea Nitrogen) 10 mg/dL (8.4-25.7); Bilirubin, Total 0.5 mg/dL (0.2-1.2); Calc. Creatinine Clearance 0 mL/min (70-130); Calcium 8.5 mg/dL (7.8-10.44); Carbon Dioxide 23 mmol/L (23-31); Chloride 104 mmol/L (98-107); Globulin 3.1 g/dL (2.4-3.5); Glucose 134 mg/dL (80-115); Potassium 4.1 mmol/L (3.5-5.1); Protein, Total 6.5 g/dL (5.8-8.1); Sodium 136 mmol/L (136-145)
[2020-10-14] MEDS ORDERED: Piperacillin/Tazobactam 4.5 GM VIAL ONE (14:15)
[2020-10-14] MEDS ORDERED: Dextrose 50% Abboject 50 ML SYRINGE SLOW IVP PRN (14:43)
[2020-10-14] MEDS ORDERED: Dextrose 5% in Water 1,000 ML IV PRN (14:43)
[2020-10-14] MEDS ORDERED: HYDROcodone/Acetaminophen 5/325 mg Tablet PO PRN (14:43)
[2020-10-14] MEDS ORDERED: Acetaminophen 325 MG TAB PO PRN (14:43)
[2020-10-14] MEDS ORDERED: Senokot S 8.6-50 MG TAB PO PRN (14:43)
[2020-10-14] MEDS ORDERED: HumaLOG 300 UNITS/3 ML VIAL SC PRN (14:43)
[2020-10-14] MEDS ORDERED: Ondansetron PF 4 MG/2 ML Vial IVP PRN (14:43)
[2020-10-14] MEDS ORDERED: Bisacodyl 5 MG TAB PO PRN (14:43)
[2020-10-14] MEDS: HYDROcodone/Acetaminophen 5/325 mg Tablet PO PRN ×2 (16:35→20:41)
[2020-10-14 16:37] VITALS: BMI 38.5
[2020-10-14] MEDS ORDERED: Piperacillin/Tazobactam 3.375 GM in Sodium Chloride 0.9% 100 ML IVPB SCH (18:00)
[2020-10-14] MEDS: Atorvastatin Calcium 20 MG TAB PO SCH (19:56)
[2020-10-14] MEDS: Tamsulosin HCl 0.4 MG CAP PO SCH (19:56)
[2020-10-14] MEDS: Carvedilol 3.125 MG TAB PO SCH (19:56)
[2020-10-14] MEDS: Piperacillin/Tazobactam 3.375 GM in Sodium Chloride 0.9% 100 ML IVPB SCH (19:57)
[2020-10-14] MEDS: Vancomycin 1.5 GRAM/300 ML BAG 1.5 GM in Premix Bag 1 BAG IVPB SCH (19:57)
[2020-10-14 22:58] LABS: SARS-CoV-2 PCR by NAA Not Detected (NotDetected)
[2020-10-15] MEDS: HYDROcodone/Acetaminophen 5/325 mg Tablet PO PRN ×4 (03:06→20:26)
[2020-10-15] MEDS: Piperacillin/Tazobactam 3.375 GM in Sodium Chloride 0.9% 100 ML IVPB SCH ×2 (03:07→07:52)
[2020-10-15 05:37] LABS: #Basophils 0.1 thou/uL (0.0-0.2); #Eosinphils 1.2 thou/uL (0.0-0.7); #Lymphocytes 1.4 thou/uL (1.20-3.40); #Monocytes 1.1 thou/uL (0.11-0.59); #Neutrophils 10.4 thou/uL (1.40-6.50); %Basophils 0.4 % (0.0-1.0); %Eosinophils 8.2 % (0.0-10.0); %Monocytes 7.6 % (0.0-10.0); %Neutrophils 73.8 % (42.0-75.0); Hemoglobin 12.6 g/dL (14.0-18.0); Mean Corpuscular HGB CONC 33.1 g/dL (32.0-36.0); Mean Corpuscular Hemoglobin 29.8 pg (27.0-31.0); Mean Platelet Volume 8.1 fL (7.4-10.4); Platelet Count 253 thou/uL (130-400); RBC Distribution Width 12.6 % (11.5-14.5); Red Blood Cell (RBC) Count 4.23 mill/uL (4.70-6.10); White Blood Cell (WBC) Count 14.1 thou/uL (4.8-10.8)
[2020-10-15 05:59] LABS: Anion Gap 13 mmol/L (10-20); BUN (Urea Nitrogen) 9 mg/dL (8.4-25.7); Calc. Creatinine Clearance 169 mL/min (70-130); Calcium 8.2 mg/dL (7.8-10.44); Carbon Dioxide 22 mmol/L (23-31); Chloride 102 mmol/L (98-107); Glucose 105 mg/dL (80-115); Potassium 3.9 mmol/L (3.5-5.1); Sodium 133 mmol/L (136-145)
[2020-10-15] MEDS: Carvedilol 3.125 MG TAB PO SCH ×2 (07:51→20:27)
[2020-10-15] MEDS: Enoxaparin Sodium 40 MG/0.4 ML SYRINGE SC SCH (07:51)
[2020-10-15] MEDS: Vancomycin 1.5 GRAM/300 ML BAG 1.5 GM in Premix Bag 1 BAG IVPB SCH ×2 (08:32→20:26)
[2020-10-15] MEDS: Atorvastatin Calcium 20 MG TAB PO SCH (20:27)
[2020-10-15] MEDS: Tamsulosin HCl 0.4 MG CAP PO SCH (20:27)
[2020-10-16] MEDS: HYDROcodone/Acetaminophen 5/325 mg Tablet PO PRN ×5 (00:55→21:15)
[2020-10-16] MEDS: Furosemide 40 MG TAB PO SCH (06:02)
[2020-10-16] MEDS: Potassium Chloride 10 MEQ TAB PO SCH (09:42)
[2020-10-16] MEDS: Enoxaparin Sodium 40 MG/0.4 ML SYRINGE SC SCH (09:42)
[2020-10-16] MEDS: Carvedilol 3.125 MG TAB PO SCH ×2 (09:42→20:10)
[2020-10-16] MEDS: Aspirin 325 MG TAB PO SCH (09:42)
[2020-10-16] MEDS: Vancomycin 1.5 GRAM/300 ML BAG 1.5 GM in Premix Bag 1 BAG IVPB SCH ×2 (10:28→20:10)
[2020-10-16] MEDS: Tamsulosin HCl 0.4 MG CAP PO SCH (20:10)
[2020-10-16] MEDS: Atorvastatin Calcium 20 MG TAB PO SCH (20:10)
[2020-10-17] MEDS: HYDROcodone/Acetaminophen 5/325 mg Tablet PO PRN ×4 (05:38→23:41)
[2020-10-17 05:58] LABS: #Basophils 0.1 thou/uL (0.0-0.2); #Eosinphils 1.7 thou/uL (0.0-0.7); #Lymphocytes 1.5 thou/uL (1.20-3.40); #Monocytes 0.8 thou/uL (0.11-0.59); #Neutrophils 5.1 thou/uL (1.40-6.50); %Basophils 0.6 % (0.0-1.0); %Lymphocytes 16.7 % (21.0-51.0); %Monocytes 8.6 % (0.0-10.0); %Neutrophils 55.1 % (42.0-75.0); Hemoglobin 13.6 g/dL (14.0-18.0); Mean Corpuscular HGB CONC 31.3 g/dL (32.0-36.0); Mean Corpuscular Hemoglobin 28.4 pg (27.0-31.0); Mean Corpuscular Volume 90.9 fL (78.0-98.0); Mean Platelet Volume 7.7 fL (7.4-10.4); Platelet Count 330 thou/uL (130-400); RBC Distribution Width 12.5 % (11.5-14.5); Red Blood Cell (RBC) Count 4.77 mill/uL (4.70-6.10); White Blood Cell (WBC) Count 9.2 thou/uL (4.8-10.8)
[2020-10-17] MEDS: Furosemide 40 MG TAB PO SCH (06:30)
[2020-10-17] MEDS: Carvedilol 3.125 MG TAB PO SCH ×2 (08:23→19:56)
[2020-10-17] MEDS: Aspirin 325 MG TAB PO SCH (08:23)
[2020-10-17] MEDS: Potassium Chloride 10 MEQ TAB PO SCH (08:23)
[2020-10-17] MEDS: Enoxaparin Sodium 40 MG/0.4 ML SYRINGE SC SCH (08:23)
[2020-10-17] MEDS: Doxycycline 100 MG CAP PO SCH ×2 (08:26→19:56)
[2020-10-17] MEDS: Atorvastatin Calcium 20 MG TAB PO SCH (19:56)
[2020-10-17] MEDS: Tamsulosin HCl 0.4 MG CAP PO SCH (19:56)
[2020-10-18] MEDS: Furosemide 40 MG TAB PO SCH (05:57)
[2020-10-18] MEDS: HYDROcodone/Acetaminophen 5/325 mg Tablet PO PRN ×3 (06:00→12:57)
[2020-10-18] MEDS: Aspirin 325 MG TAB PO SCH (09:06)
[2020-10-18] MEDS: Enoxaparin Sodium 40 MG/0.4 ML SYRINGE SC SCH (09:06)
[2020-10-18] MEDS: Carvedilol 3.125 MG TAB PO SCH (09:06)
[2020-10-18] MEDS: Potassium Chloride 10 MEQ TAB PO SCH (09:06)
[2020-10-18] MEDS: Doxycycline 100 MG CAP PO SCH (09:13)
[2020-10-18 16:10] VITALS: BP 147/75; TEMP 98.3
== END 2020-10-18 16:00 | disposition home or self-care (01) | DRG 863 ==
LOC: ERS 11:49 → SURG A 14:43
PROVIDERS: ADMIT Thoracic Surgery (Cardiothoracic Vascular Surgery); ATTEND Thoracic Surgery (Cardiothoracic Vascular Surgery)
DX: T81.41XA Infection following a procedure, superficial incisional surgical site, initial encounter (principal); L03.313 Cellulitis of chest wall; Y83.8 Other surgical procedures as the cause of abnormal reaction of the patient, or of later complication, without mention of misadventure at the time of the procedure; E11.9 Type 2 diabetes mellitus without complications; E66.9 Obesity, unspecified; E78.5 Hyperlipidemia, unspecified; I10 Essential (primary) hypertension; B95.62 Methicillin resistant Staphylococcus aureus infection as the cause of diseases classified elsewhere; Z20.822 Contact with and (suspected) exposure to COVID-19; Z95.2 Presence of prosthetic heart valve; Z98.890 Other specified postprocedural states; Z68.38 Body mass index [BMI] 38.0-38.9, adult
CPT/HCPCS: 36415; 36416; 71045; 71046; 80048; 80053; 85025; 87040; 87070; 87077; 87186; 87205; 87635; J1650; J2543; J3370; J3490; U0003; U0005

== ENCOUNTER 2020-10-30 11:31 | Outpatient (CLI) | payer OTHER | END 2020-10-30 11:32 | disposition home or self-care (01) | LOC: BICRAD 11:31 | PROVIDERS: ATTEND Thoracic Surgery (Cardiothoracic Vascular Surgery) | DX: T81.49XA Infection following a procedure, other surgical site, initial encounter (principal); J91.8 Pleural effusion in other conditions classified elsewhere | CPT/HCPCS: 71046 ==

== ENCOUNTER 2020-11-08 10:07 | Outpatient (CLI) | payer OTHER ==
[2020-11-08] MEDS ORDERED: Iopamidol 370 76% 100 ML VIAL ONE (14:50)
== END 2020-11-08 10:08 | disposition home or self-care (01) ==
LOC: BICCT 10:07
PROVIDERS: ATTEND Urology
DX: C67.3 Malignant neoplasm of anterior wall of bladder (principal)
CPT/HCPCS: 74178; Q9967

== ENCOUNTER 2021-11-13 11:38 | Outpatient (CLI) | payer MEDICARE | END 2021-11-13 11:39 | disposition home or self-care (01) | LOC: SCSRAD 11:38 | PROVIDERS: ATTEND Family Medicine | DX: R05.9 Cough, unspecified (principal); R91.8 Other nonspecific abnormal finding of lung field | CPT/HCPCS: 71046 ==

== ENCOUNTER 2022-09-18 07:20 | Outpatient (CLI) | payer MEDICARE ==
[2022-09-18] MEDS ORDERED: Iopamidol-370 76% 500 ML 1 ML ONE (14:58)
== END 2022-09-18 07:21 | disposition home or self-care (01) ==
LOC: BICCT 07:20
PROVIDERS: ATTEND Urology
DX: C67.3 Malignant neoplasm of anterior wall of bladder (principal)
CPT/HCPCS: 74178; 82565; Q9967

== ENCOUNTER 2023-07-25 07:09 | Outpatient (CLI) | payer MEDICARE ==
[2023-07-25] MEDS ORDERED: Iopamidol-370 76% 500 ML MDV (1 ML CHARGE) ONE (11:27)
== END 2023-07-25 07:10 | disposition home or self-care (01) ==
LOC: BICCT 07:09
PROVIDERS: ATTEND Urology
DX: C67.3 Malignant neoplasm of anterior wall of bladder (principal)
CPT/HCPCS: 74178; 82565; Q9967

== ENCOUNTER 2024-07-16 12:49 | Outpatient (CLI) | payer MEDICARE | END 2024-07-16 12:50 | disposition home or self-care (01) | LOC: BICCT 12:49 | PROVIDERS: ATTEND Urology | DX: C67.3 Malignant neoplasm of anterior wall of bladder (principal); R35.0 Frequency of micturition; R35.1 Nocturia | CPT/HCPCS: 74178 ==

== ENCOUNTER 2024-09-16 08:28 | Outpatient (CLI) | payer MEDICARE, OTHER | END 2024-09-16 08:29 | disposition home or self-care (01) | LOC: BICRAD 08:28 | PROVIDERS: ATTEND Family Medicine | DX: M25.561 Pain in right knee (principal); M25.562 Pain in left knee; M17.0 Bilateral primary osteoarthritis of knee ==